=== PATIENT | female | born 1975 | race Caucasian/White ===

== ENCOUNTER 2017-05-20 12:29 | Emergency (ER) | payer OTHER ==
[~2017-05-20] VITALS: Ht 165.1 cm; Wt 82.2 kg
[~2017-05-20 12:29] MED LIST: CARV12.5 PO; HUM SUBQ; IBUP-974 PO; SITA100T8 PO; SULF1TAB12 PO
[2017-05-20 12:36] VITALS: BP 173/96
--- NOTE | 2017-05-20 12:50 | NUR ---
PATIENT IS A 41 YO FEMALE BIB SELF FOR RIGHT CALF PAIN SHE HAS HAD FFOR MONTHS, AWAKE AND ALERT ABLE TO AMBULATE.
[2017-05-20] MEDS ORDERED: KETOROLAC 60 MG/2 ML VIAL IM ONE (13:15)
--- NOTE | 2017-05-20 14:32 | NUR ---
Crutches dispensed. Taught proper use, patient returned demo.
[2017-05-20 14:50] VITALS: BP 161/80
== END 2017-05-20 14:50 | disposition home or self-care (01) ==
LOC: MED 12:29
DX: S86.911A Strain of unspecified muscle(s) and tendon(s) at lower leg level, right leg, initial encounter (principal); E11.9 Type 2 diabetes mellitus without complications; I10 Essential (primary) hypertension; Z90.710 Acquired absence of both cervix and uterus; Z88.8 Allergy status to other drugs, medicaments and biological substances; X58.XXXA Exposure to other specified factors, initial encounter; Y93.89 Activity, other specified; Y92.89 Other specified places as the place of occurrence of the external cause; Y99.8 Other external cause status
CPT/HCPCS: 73590; 93971; 96372; 99284; J1885

== ENCOUNTER 2018-06-16 20:59 | Inpatient (IN) | payer OTHER ==
[~2018-06-16] VITALS: Ht 165.1 cm; Wt 84.8 kg
[2018-06-16 21:08] VITALS: BP 178/90
[2018-06-16] MEDS ORDERED: GABA250S1 PO (21:13)
[2018-06-16] MEDS ORDERED: METF500T2 PO (21:13)
--- NOTE | 2018-06-16 21:13 | NUR ---
PT RETURNED TO LOBBY IN STABLE CONDITION
--- NOTE | 2018-06-16 23:41 | NUR ---
PT AMBULATED TO ER BED 05
[2018-06-16] MEDS ORDERED: IBUPROFEN 800 MG TAB PO ONE (23:50)
[2018-06-16] MEDS ORDERED: ACETAMINOPHEN EXTRA STRENGTH 500 MG TAB PO ONE (23:50)
--- NOTE | 2018-06-17 | NUR ---
PT BIB SELF REFERRED FROM URGENT CARE FOR ABCESS TO INSIDE OF RT BUTT CHEEK. REDNESS AND MILD SWELLING NOTED TO AFFECTED AREA. NO DRAINAGE OR BLEEDING. PT STATES SHE NOTICED S/S STARTING SATURDAY. PT LAYING IN BED, AWAKE ,ACTING APPROPRIATE.
--- NOTE | 2018-06-17 00:54 | NUR ---
Dr. North evaluating patient at bedside.
[2018-06-17] MEDS ORDERED: NACL 0.9% 2,000 ML IV SCH (00:56)
[2018-06-17] MEDS ORDERED: VANCOMYCIN 1,000 MG in DEXTROSE 5% 250 ML IV ONE (01:00)
[2018-06-17] MEDS ORDERED: PIPERACILLIN/TAZOBACTAM 3.375 GM in DEXT 5% MINI-BAG PLUS 50 ML IV ONE (01:00)
[2018-06-17 01:23] LABS: HEMATOCRIT 38.4 % (36-48); MEAN CORPUSCULAR HEMOGLOBIN 29 pg (27-31); MEAN CORPUSCULAR HGB CONC 34 g/dL (33-37); MEAN CORPUSCULAR VOLUME 87.1 fL (80-94); PLATELET COUNT (AUTO) 254 K/uL (140-450); RED CELL DISTRIBUTION WIDTH 12.2 % (11.6-13.7); WHITE BLOOD COUNT (AUTO) 13.8 K/uL (4.8-10.8)
[2018-06-17] MEDS ORDERED: VANCOMYCIN 1,000 MG VIAL ONE ×2 (01:27→02:35)
[2018-06-17] MEDS ORDERED: PIPERACILLIN/TAZOBACTAM 3.375 GM VIAL IV ONE (01:27)
--- NOTE | 2018-06-17 01:30 | NUR ---
PT LAYING IN BED, NO CHANGE IN STATUS, WILL CONTINUE TO MONITOR.
[2018-06-17 01:35] LABS: ANION GAP 17.2 (8-16); CARBON DIOXIDE 23.3 mmol/L (21-32); CREATININE 0.7 mg/dL (0.6-1.3); EOSINOPHILS % (MANUAL) 1 % (0-4); LYMPHOCYTES % (MANUAL) 7 % (20-46); MONOCYTES % (MANUAL) 1 % (5-12); POTASSIUM 3.5 mmol/L (3.5-5.1)
[2018-06-17 01:40] LABS: ALBUMIN 3.4 g/dL (3.4-5.0); TOTAL BILIRUBIN 0.7 mg/dL (0.0-1.0)
[2018-06-17 01:41] LABS: APPEARANCE,URINE SL CLOUDY (CLEAR); BILIRUBIN,URINE NEGATIVE (NEGATIVE); BLOOD, URINE NEGATIVE (NEGATIVE); COLOR,URINE YELLOW (YELLOW); LEUKOCYTE ESTERASE ,URINE TRACE (NEGATIVE); NITRITE, URINE NEGATIVE (NEGATIVE); UGLUCOSE 3+ (NEGATIVE)
[2018-06-17 01:50] LABS: RBC,URINE 0-5 (RARE) /HPF (0-5); YEAST,URINE Moderate /HPF (None Seen)
[2018-06-17] MEDS ORDERED: MORPHINE SULFATE 4 MG/ML SYR IVP ONE (02:45)
--- NOTE | 2018-06-17 03:00 | NUR ---
PT LAYING IN BED RESTING, WILL CONTINUE TO MONITOR.
--- NOTE | 2018-06-17 04:30 | NUR ---
PT LAYING IN BED RESTING, VSS, WILL CONTINUE TO MONITOR.
--- NOTE | 2018-06-17 05:15 | NUR ---
PT LAYING IN BED AWAKE, ON PHONE, WILL CONTINUE TO MONITOR.
[2018-06-17] MEDS ORDERED: ONDANSETRON 4 MG/2 ML VIAL IVP ONE (05:30)
[2018-06-17] MEDS ORDERED: DEXTROSE 50% 50 ML SYR IVP PRN (06:40)
[2018-06-17] MEDS ORDERED: VANCOMYCIN PER PHARMACY MC PRN (06:40)
[2018-06-17] MEDS ORDERED: ONDANSETRON 4 MG/2 ML VIAL IVP PRN ×2 (06:40→17:55)
[2018-06-17] MEDS ORDERED: ACETAMINOPHEN 325 MG TAB PO PRN (06:40)
--- NOTE | 2018-06-17 07:02 | NUR ---
Patient will be admitted to care of DR DAY. Admited toMED-SURG. Will go to [id number]. Belongings list completed. Report to KYLER DURHAM.
--- NOTE | 2018-06-17 07:02 | NUR ---
RECEIVED REPORT FROM BRIELLE DURHAM RN. ADMITTED PT FROM ER VIA JENNIFER. AAOX4. NO C/O SOB. ON ROOM AIR. SKIN INTACT. DX OF CELLULITIS TO THE RIGHT BUTTOCK. PT STATES PAIN IS 6/10. WILL MEDICATE. MRSA SWAB TAKEN. IV TO LEFT AC 20G, PATENT AND INTACT. ORIENTED PT TO ROOM. DISCUSSED PLAN OF CARE, PT VERBALIZED UNDERSTANDING. SAFETY PRECAUTION IN PLACE. CALL LIGHT WITHIN REACH. BED IN LOW POSITION. PERSONAL BELONGINGS AT BEDSIDE WITH PT. WILL CONTINUE TO ASSESS AND MONITOR.
[2018-06-17] MEDS: BLOOD GLUCOSE MONITORING 1 DEV DEV FS SCH ×4 (07:30→21:18)
[2018-06-17] MEDS: metFORMIN 500 MG TAB PO SCH ×3 (08:00→17:00)
[2018-06-17] MEDS: ENOXAPARIN 40 MG/0.4 ML SYR SUBQ SCH (08:41)
[2018-06-17] MEDS: CARVEDILOL 6.25 MG TAB PO SCH ×2 (08:42→21:26)
[2018-06-17] MEDS: GABAPENTIN 300 MG CAP PO SCH ×3 (08:42→17:00)
[2018-06-17] MEDS: HYDROcodone/APAP 5/325 MG 1 TAB TAB PO PRN ×3 (08:42→23:09)
--- NOTE | 2018-06-17 08:43 | NUR ---
PATIENT HAS BEEN SCREENED AND CATEGORIZED HIGH NUTRITION RISK. PATIENT WILL BE SEEN WITHIN 1-2 DAYS OF ADMISSION. 06/17/18-06/18/[address]
[2018-06-17] MEDS: INSULIN LISPRO SLIDING SCALE 100 UNITS/ML VIAL SUBQ PRN ×4 (09:13→21:30)
--- NOTE | 2018-06-17 09:25 | NUR ---
PT VERBALIZING THAT HER ABSCESS IS GETTING LARGER. DR. DAY AT NURSES STATION WAS NOTIFIED. STATED THAT HE WILL ASSESS.
[2018-06-17] MEDS ORDERED: VANCOMYCIN 1GM/DEXT 5% PREMIX 200 ML IV SCH (10:00)
--- NOTE | 2018-06-17 11:24 | NUR ---
PT HAS I&D OF ABSCESS PENDING. AWAITING ORDER FOR PT TO SIGN CONSENT.
--- NOTE | 2018-06-17 12:50 | NUR ---
PT SLEEPING IN BED. NO SIGNS OF PAIN, SOB, OR DISTRESS NOTED. WILL CONTINUE TO MONITOR PT. BED IN LOW POSITION, CALL LIGHT WITHIN REACH.
[2018-06-17] MEDS: PIPER/TAZO 3.375GM/D5W PREMIX 50 ML IV SCH ×2 (13:00→21:26)
--- NOTE | 2018-06-17 13:06 | NUR ---
06/17/18 RD INITIAL ASSESSMENT COMPLETED PLEASE REFER TO NUTRITION ASSESSMENT UNDER CARE ACTIVITY FOR ESTIMATED NUTRITIONAL NEEDS. 1. CONTINUE 60 GM CCHO DIET TOLERATED 2. RECOMMEND ADVANCING DIET TO 2GM SODIUM 60 GM CCHO 3. DIETITIAN PROVIDED NUTRITION EDUCATION ON HTN AND DM 4. RD TO FOLLOW-UP 3-5 DAYS, MODERATE RISK YULI HAYNES RD
--- NOTE | 2018-06-17 13:20 | NUR ---
PER DIETARY RECOMMENDATIONS, PT SHOULD FOLLOW A 2GM SODIUM + CCHO DIET.
--- NOTE | 2018-06-17 13:30 | NUR ---
CM NOTE PER CONNIE OF [facility] (PCP) PH# [phone], PATIENT IS SCHEDULED FOR OUTPATIENT FOLLOW UP APPOINTMENT ON JUNE 25, 2018 12:00 PM AT THE CLINIC AT [address] [place] [address]. I GAVE THE PATIENT A COPY OF HER OUTPATIENT FOLLOW UP SCHEDULE.
--- NOTE | 2018-06-17 13:50 | NUR ---
CM NOTE CHART REVIEW DONE
--- NOTE | 2018-06-17 16:59 | NUR ---
PT TAKEN TO OR FOR I&D OR KATHIE ABSCESS. PT LEFT IN STABLE CONDITION.
[2018-06-17] MEDS ORDERED: DEXAMETHASONE 10 MG/ML VIAL ONE (17:15)
[2018-06-17] MEDS ORDERED: KETOROLAC 30 MG/ML VIAL ONE (17:15)
[2018-06-17] MEDS ORDERED: ONDANSETRON 4 MG/2 ML VIAL ONE (17:15)
[2018-06-17] MEDS ORDERED: PROPOFOL 200 MG/20 ML VIAL IV ONE (17:15)
[2018-06-17] MEDS ORDERED: SEVOFLURANE 250 ML BTL INH ONE (17:15)
[2018-06-17] MEDS ORDERED: BUPIVACAINE-MPF/EPI 0.25% 30 ML VIAL INJ ONE (17:25)
[2018-06-17] MEDS ORDERED: MIDAZOLAM 2 MG/2 ML VIAL ONE (17:27)
[2018-06-17] MEDS ORDERED: fentaNYL 0.05 MG/ML VIAL ONE (17:28)
[2018-06-17] MEDS ORDERED: MEPERIDINE 50 MG/ML SYR ONE (17:28)
[2018-06-17] MEDS ORDERED: diphenhydrAMINE 50 MG/ML VIAL IVP PRN (17:55)
[2018-06-17] MEDS ORDERED: MEPERIDINE 25 MG/ML SYR IVP PRN (17:55)
[2018-06-17] MEDS ORDERED: HYDROmorphone 1 MG/ML AMP IVP PRN (17:55)
[2018-06-17] MEDS ORDERED: BLOOD GLUCOSE MONITORING 1 DEV DEV FS SCH (17:59)
--- NOTE | 2018-06-17 19:00 | NUR ---
PT RETURNED FROM OR. PT IN STABLE CONDITION. VERY SLEEPY FROM ANESTHESIA. I&D SIGHT CHECKED, 3 4X4 GAUZES PACKED INTO WOUND. NO DRESSING APPLIED OVER INCISION. KATHIE PAD MINIMALLY SATURATED WITH SANGUINOUS FLUID. ALL NEEDS MET AT THIS TIME. WILL ENDORSE TO SPACE TECHNOLOGIST TO MONITOR CLOSELY.
--- NOTE | 2018-06-17 19:04 | NUR ---
1700 NEURONTIN NOT ADMINISTERED TO PT. PT TOO SLEEPY TO TAKE MEDICATIONS. ASPIRATION RISK IF MEDS GIVEN.
--- NOTE | 2018-06-17 19:32 | NUR ---
ENDORSED PT TO TOOL AND CUTTER GRINDER FOR CONTINUITY OF CARE. PT IN STALE CONDITION.
--- NOTE | 2018-06-17 19:33 | NUR ---
RECEIVED BEDSIDE REPORT. PT IS A&OX4. RESPIRATIONS ARE EQUAL AND UNLABORED. S/P I&D. PT RECENTLY RETURNED FROM SURGERY AND IS STILL DROWSY. PER NURSE DR. STEELE PACKED INCISION WITH 3 4X4. DRESSING DRY AND INTACT DENIES PAIN. IV TO LAC 20 G DRY AND INTACT INFUSING IVF PER ORDERS. LUNG SOUNDS ARE CLEAR. PT HAD CT SCAN WITH CONTRAST TODAY AND METFORMIN TO BE HELD FOR 48HRS. PLAN OF CARE WAS DISCUSSED WITH PT. WILL CONTINUE TO MONITOR.
[2018-06-17] MEDS: NACL 0.9% 1,000 ML IV SCH (21:25)
--- NOTE | 2018-06-17 21:36 | NUR ---
DUE MEDICATIONS WERE GIVEN. PT TOLERATED WELL. ORDERED SANDWICH FOR PT. ALL NEEDS MET AT THIS TIME. WILL CONTINUE TO MONITOR.
[2018-06-17 23:38] VITALS: BP 147/68
--- NOTE | 2018-06-18 | NUR ---
PTS VITAL SIGNS ARE WITHIN NORMAL LIMITS. DENIES ANY SOB OR PAIN AT THIS TIME. ALL NEEDS MET. CALL LIGHT WITHIN REACH.
--- NOTE | 2018-06-18 02:00 | NUR ---
PT SLEEPING RESPIRATIONS ARE EQUAL AND UNLABORED. CALL LIGHT WITHIN REACH.
[2018-06-18] MEDS: NACL 0.9% 1,000 ML IV SCH ×2 (02:13→10:33)
--- NOTE | 2018-06-18 03:25 | NUR ---
PT SLEEPING COMFORTABLY IN BED. RESPIRATIONS ARE EQUAL AND UNLABORED. ALL SAFETY MEASURES ARE IN PLACE.CALL LIGHT WITHIN REACH
[2018-06-18] MEDS: PIPER/TAZO 3.375GM/D5W PREMIX 50 ML IV SCH ×2 (05:13→13:18)
[2018-06-18] MEDS: HYDROcodone/APAP 5/325 MG 1 TAB TAB PO PRN ×3 (05:20→18:38)
--- NOTE | 2018-06-18 05:20 | NUR ---
PAIN 6/10 NORCO WAS GIVEN. ALL NEEDS MET AT THIS TIME. WILL CONTINUE TO MONITOR.
[2018-06-18] MEDS: INSULIN LISPRO SLIDING SCALE 100 UNITS/ML VIAL SUBQ PRN ×3 (05:22→18:40)
[2018-06-18] MEDS: BLOOD GLUCOSE MONITORING 1 DEV DEV FS SCH ×3 (05:23→16:30)
[2018-06-18 05:55] LABS: BASOPHILS % (AUTO) 0.1 % (0.0-2.0); HEMOGLOBIN 11.9 g/dL (12.0-16.0); LYMPHOCYTES # (AUTO) 0.5 K/uL (2.5-16.5); LYMPHOCYTES % (AUTO) 5.6 % (20.5-51.1); MEAN CORPUSCULAR HEMOGLOBIN 30 pg (27-31); MEAN CORPUSCULAR HGB CONC 33 g/dL (33-37); MONOCYTES # (AUTO) 0.4 K/uL (0.8-1.0); MONOCYTES % (AUTO) 4.9 % (1.7-9.3); NEUTROPHILS # (AUTO) 8.2 K/uL (1.8-7.7); NEUTROPHILS % (AUTO) 89.4 % (42.2-75.2); PLATELET COUNT (AUTO) 213 K/uL (140-450); RED CELL DISTRIBUTION WIDTH 12.6 % (11.6-13.7); WHITE BLOOD COUNT (AUTO) 9.1 K/uL (4.8-10.8)
--- NOTE | 2018-06-18 07:21 | NUR ---
RECEIVED BEDSIDE REPORT. PT IS A&OX4. RESPIRATIONS ARE EQUAL AND UNLABORED. S/P I&D. DR. STEELE PACKED INCISION WITH 3 4X4 GAUZE PADS. DRESSING DRY AND INTACT DENIES PAIN. IV TO LAC 20 G DRY AND INTACT INFUSING IVF PER ORDERS. LUNG SOUNDS ARE CLEAR. PT HAD CT SCAN WITH CONTRAST TODAY AND METFORMIN TO BE HELD FOR 48HRS. PLAN OF CARE WAS DISCUSSED WITH PT. WILL CONTINUE TO MONITOR. Addendum: 06/18/18 at 0733 by Ashli Carl RN RECEIVED BEDSIDE REPORT. PT IS A&OX4. RESPIRATIONS ARE EQUAL AND UNLABORED. S/P I&D. DR. STEELE PACKED INCISION WITH 3 4X4 GAUZE PADS. DRESSING DRY AND INTACT DENIES PAIN. IV TO LAC 20 G DRY AND INTACT INFUSING IVF PER ORDERS. LUNG SOUNDS ARE CLEAR. PT HAD CT SCAN WITH CONTRAST YESTERDAY (06/17) AND METFORMIN TO BE HELD FOR 48HRS. PLAN OF CARE WAS DISCUSSED WITH PT. WILL CONTINUE TO MONITOR.
--- NOTE | 2018-06-18 07:22 | NUR ---
ENDORSED TO DAY SHIFT. PT IS STABLE.
[2018-06-18] MEDS ORDERED: CARVEDILOL 12.5 MG TAB PO SCH (07:36)
[2018-06-18 08:00] VITALS: BP 175/91
[2018-06-18] MEDS: metFORMIN 500 MG TAB PO SCH ×3 (08:00→17:00)
[2018-06-18 08:42] LABS: ANION GAP 16.3 (8-16); CREATININE 0.8 mg/dL (0.6-1.3); POTASSIUM 4.3 mmol/L (3.5-5.1)
[2018-06-18 08:43] LABS: ALBUMIN 2.7 g/dL (3.4-5.0); TOTAL BILIRUBIN 0.7 mg/dL (0.0-1.0)
--- NOTE | 2018-06-18 09:23 | NUR ---
ANKIT NOTE FAXED ORDER FOR HOME HEALTH TO [facility] [phone]. RECEIVED CALL FROM [facility] PH# [phone] EXT [phone] STATING THAT SHE IS AUTHORIZING HOME HEALTH WITH [facility] PH# [phone]. SHAWN KIDD. Addendum: 06/18/18 at 0946 by Dasha Lugo CM PER [facility], FOR [facility] AUTH# [id number]
--- NOTE | 2018-06-18 09:51 | NUR ---
PT SLEEPING IN BED. NO SIGNS OF PAIN, SOB, OR DISTRESS NOTED. WILL CONTINUE TO MONITOR PT. BED IN LOW POSITION, CALL LIGHT WITHIN REACH.
[2018-06-18] MEDS: GABAPENTIN 300 MG CAP PO SCH ×3 (10:25→17:00)
[2018-06-18] MEDS: ENOXAPARIN 40 MG/0.4 ML SYR SUBQ SCH (10:27)
--- NOTE | 2018-06-18 11:42 | NUR ---
PT SITTING IN BED WITH AT BEDSIDE.PT IN GOOD SPIRITS. NO COMPLAINTS OF PAIN AT THIS TIME. ALL NEEDS MET. WILL CONTINUE TO ASSESS PT CLOSELY. CALL LIGHT WITHIN REACH, BED IN LOW POSITION.
--- NOTE | 2018-06-18 12:30 | NUR ---
Trestle Mainternance Laborer Note: I faxed inquiry to [facility], fax number , phone number . Per Angela from [facility], they don't have nursing staff available to do daily dressing changes. She stated their nurses can go to patient's home between 3-4 times per week, charge nurse Reji made aware and will notify [facility] nursing staff can't visit patient daily at home.
--- NOTE | 2018-06-18 14:51 | NUR ---
PT IN THE RESTROOM. KNOCKED ON DOOR TO ASK PT IF SHE WAS OK AND SHE VERBALIZED THAT SHE WAS FINE. NO COMPLAINTS OF PAIN. BED IN LOW POSITION, PATHWAY TO RESTROOM CLEAR. WILL CONTINUE TO MONITOR PT.
[2018-06-18] MEDS ORDERED: AMOX-1000 PO (15:20)
[2018-06-18 16:00] VITALS: BP 175/76
--- NOTE | 2018-06-18 18:42 | NUR ---
PT WOUND CARE DONE. REMOVED 3 4X4 GAUZES PER 'S INSTRUCTIONS POST I&D. PT WAS PREMEDICATED 30MINS PRIOR TO DRESSING CHANGE. PT VERBALIZED DISCOMFORT DURING REMOVAL OF OLD GAUZE AND PACKING OF NEW GAUZE. ONLY PACKED ONE WET TO DRY GAUZE INTO WOUND. PT WAS INSTRUCTED OF IMPORTANCE OF KEEPING WOUND AREA CLEAN. INSTRUCTED PT TO RINSE LIGHTLY WITH SALINE WATER AND USE CLEAN STERILE GAUZE PROVIDED FOR HER. PT VERBALIZED UNDERSTANDING. PICTURE TAKEN AND PLACED IN CHART.
--- NOTE | 2018-06-18 19:47 | NUR ---
PT DISCHARGED HOME. MOM AT BEDSIDE AND DROVE HER HOME. PT TO HAVE HOME HEALTH VISITS FOR WOUND DRESSING CHANGES 3-4X PER WEEK PER CM. PT GIVEN DISCHARGE TEACHING AND PAPERWORK. INSTRUCTED PT ON DRESSING CHANGES AND THAT 1 GAUZE WAS PACKED INTO WOUND WHEN I DID DRESSING CHANGE. PT SIGNED PAPERWORK AND VERBALIZED UNDERSTANDING OF TEACHING. PRESCRIPTIONS GIVEN TO PT AND 'S CONTACT INFORMATION WELL. PT IV REMOVED WITH TIP INTACT. WRIST BAND ALSO REMOVED. PT TOOK ALL BELONGINGS WITH HER. PT LEFT IN STABLE CONDITION.
== END 2018-06-18 19:47 | disposition home health service (06) | DRG 720 ==
LOC: MED 20:59 → MTU 06-17 06:45
PROVIDERS: ADMIT Internal Medicine; ATTEND Internal Medicine
PROC: 0D9Q0ZX Drainage of Anus, Open Approach, Diagnostic (ICD-10-PCS; principal; 2018-06-18)
DX: A41.9 Sepsis, unspecified organism (principal); K61.2 Anorectal abscess; E11.9 Type 2 diabetes mellitus without complications; L03.317 Cellulitis of buttock; E66.9 Obesity, unspecified; I10 Essential (primary) hypertension; Z68.31 Body mass index [BMI] 31.0-31.9, adult; Z88.2 Allergy status to sulfonamides; Z88.8 Allergy status to other drugs, medicaments and biological substances; Z79.4 Long term (current) use of insulin; Z79.84 Long term (current) use of oral hypoglycemic drugs; Z90.710 Acquired absence of both cervix and uterus; Z98.891 History of uterine scar from previous surgery
CPT/HCPCS: 36415; 72193; 80053; 81001; 82948; 83605; 83690; 85025; 87040; 87070; 87075; 87081; 87086; 87186; 87205; 96365; 96366; 96367; 96375; 99291; J0696; J1100; J1650; J1815; J1885; J2175; J2250; J2270; J2405; J2543; J2704; J3010; J3370; J3490; J7030; J7060; Q9967

== ENCOUNTER 2018-07-26 21:54 | Emergency (ER) | payer OTHER ==
[~2018-07-26] VITALS: Ht 165.1 cm; Wt 84.8 kg
[~2018-07-26 21:54] MED LIST changes: +AMOX-1000 PO; +GABA250S1 PO; -IBUP-974 PO; +METF500T2 PO; -SITA100T8 PO; -SULF1TAB12 PO
[2018-07-26 21:58] VITALS: BP 163/90
--- NOTE | 2018-07-26 21:58 | NUR ---
TO LOBBY AWAITING BED, VSS.
--- NOTE | 2018-07-27 00:15 | NUR ---
TO ER BED 10
--- NOTE | 2018-07-27 00:18 | NUR ---
PT BIB SELF FOR L FOOT PAIN X3 DAYS. PT REPORTS SHARP PAIN AT 7/10 THAT RADIATES UP L LEG. NO VISIBLE EDEMA OR ERYTHEMA ON BOTTOM OF FOOT WHERE PT STATES PAIN COMES FROM. PT R GREAT TOE HAS SOME ERYTHEMA PRESENT AND IS TENDER TO TOUCH. PT HAS TREATED WITH LIDOCAINE PATCHES AND ALIEVE WITH NO RELIEF. ER MD TO SEE PT. SAFETY PRECAUTINS IN PLACE, WILL CONTINUE TO MONITOR. MEDHX: DM II, HTN RX: GABAPENTIN, METFORMIN, HUMALOG, CARVIDILOL
--- NOTE | 2018-07-27 00:37 | NUR ---
GUERO NIELSEN AT BEDSIDE AT THIS TIME.
[2018-07-27 01:00] VITALS: BP 159/88
== END 2018-07-27 01:00 | disposition home or self-care (01) ==
LOC: MED 21:54
DX: M72.2 Plantar fascial fibromatosis (principal); E11.9 Type 2 diabetes mellitus without complications; I10 Essential (primary) hypertension; J45.909 Unspecified asthma, uncomplicated; Z85.42 Personal history of malignant neoplasm of other parts of uterus; Z79.4 Long term (current) use of insulin; Z79.899 Other long term (current) drug therapy; Z88.1 Allergy status to other antibiotic agents; Z88.2 Allergy status to sulfonamides; Z88.8 Allergy status to other drugs, medicaments and biological substances
CPT/HCPCS: 73630; 99283

== ENCOUNTER 2019-02-03 05:59 | Emergency (ER) | payer OTHER ==
[~2019-02-03] VITALS: Ht 165.1 cm; Wt 74.6 kg
[2019-02-03 06:06] VITALS: BP 160/91
--- NOTE | 2019-02-03 06:08 | NUR ---
PT AMBULATED TO BED 8
--- NOTE | 2019-02-03 06:23 | NUR ---
43 Y/O FEMALE PRESENTS TO ED, C/O L ANKLE ACHING PAIN THAT RADIATES TO L HIP, 02/17. PT DENIES ANY TRAUMA OR FALL. PT STATES SHE HAS BEEN HAVING PAIN ON L ANKLE BUT WORSENED AND RADIATED TO L HIP YESTERDAY. PT TOOK MOTRIN TO RELIEVE PAIN BUT WAS INEFFECTIVE. PT HAS HX OF DM AND NEUROPHATHY, TAKES GABAPENTIN AT HOME. PT HAS FULL ROM ON LOWER EXTREMITIES, BILAT STRONG PEDAL PULSES. PT ABLE TO AMBULATE WITH SLOW STEADY GAIT BUT WITH PAIN. PT VSS. ERMD AWARE. WILL CONTINUE TO MONITOR.
[2019-02-03] MEDS ORDERED: KETOROLAC 60 MG/2 ML VIAL IM ONE (07:15)
--- NOTE | 2019-02-03 07:32 | NUR ---
JOHNATHAN LR PROVIDING TEACHING ON USING CRUTCHES AT THIS TIME.
[2019-02-03 07:38] VITALS: BP 152/93
--- NOTE | 2019-02-03 07:38 | NUR ---
Patient discharged with v/s stable. Written and verbal after care instructions given and explained. Patient alert, oriented and verbalized understanding of instructions. Wheel Chair Assisted with to LOBBY WHERE PT IS WAITING FOR A RIDE. All questions addressed prior to discharge. ID band removed. Patient advised to follow up with PMD. Rx of NOROC given. Patient educated on indication of medication including possible reaction and side effects. Opportunity to ask questions provided and answered.
== END 2019-02-03 07:38 | disposition home or self-care (01) ==
LOC: MED 05:59
DX: M54.42 Lumbago with sciatica, left side (principal); M72.2 Plantar fascial fibromatosis; J45.909 Unspecified asthma, uncomplicated; F15.10 Other stimulant abuse, uncomplicated; Z90.710 Acquired absence of both cervix and uterus; Z79.4 Long term (current) use of insulin; Z79.2 Long term (current) use of antibiotics; Z88.8 Allergy status to other drugs, medicaments and biological substances; Z88.1 Allergy status to other antibiotic agents; Z85.42 Personal history of malignant neoplasm of other parts of uterus
CPT/HCPCS: 96372; 99283; J1885

== ENCOUNTER 2019-03-04 18:31 | Emergency (ER) | payer OTHER ==
[~2019-03-04] VITALS: Ht 165.1 cm; Wt 81.9 kg
--- NOTE | 2019-03-04 19:06 | NUR ---
PT ambulated to bed 06.
--- NOTE | 2019-03-04 19:14 | NUR ---
43 Y/O FEMALE C/O NAUSEA, LEFT ANKLE & LEFT FOOT PAIN &SWELLING X 2 WEEKS. ACCU CHECK 364 AT THIS TIME. BP 195/95. PATIENT IS A/OX4 AND FOLLOWS COMMANDS. LEFT ANKLE NONPITTING EDEMA. PATIENTS STATES THAT SHE TWISTED LEFT ANKLE 2 MONTHS AGO; PAIN STARTED APPROXIMATELY 2 WEEKS AGO. PAIN IS 9/10 SHARP; STABBING PAIN RADIATING TO LEFT HIP. ERMD MADE AWARE. SIDERAILSX1. MED HX: DM, HTN, HYSTERECTOMY RX: HUMALOG; METFORMIN; LEVAMIR; COREG ALLERGIES: HCTZ; SULAMETHOXAZOLE; SEE PT. RX LIST
--- NOTE | 2019-03-04 19:27 | NUR ---
Dr. Vieyra examining patient.
[2019-03-04] MEDS ORDERED: KETOROLAC 60 MG/2 ML VIAL IM ONE (19:35)
--- NOTE | 2019-03-04 19:46 | NUR ---
Kelsea presley in [facility] - 03/04/19 at 1958 by BRIDGETT X-Ray at bedside.
--- NOTE | 2019-03-04 19:48 | NUR ---
X-RAY AT BEDSIDE.
[2019-03-04 20:33] LABS: BASOPHILS % (AUTO) 0.3 % (0.0-2.0); EOSINOPHILS # (AUTO) 0.1 K/uL (0-0.4); EOSINOPHILS % (AUTO) 1.4 % (0.0-4.0); HEMOGLOBIN 13.2 g/dL (12.0-16.0); LYMPHOCYTES # (AUTO) 1.5 K/uL (2.5-16.5); LYMPHOCYTES % (AUTO) 18.2 % (20.5-51.1); MEAN CORPUSCULAR HEMOGLOBIN 30 pg (27-31); MEAN CORPUSCULAR HGB CONC 34 g/dL (33-37); MEAN CORPUSCULAR VOLUME 89.9 fL (80-94); MONOCYTES # (AUTO) 0.5 K/uL (0.8-1.0); MONOCYTES % (AUTO) 5.7 % (1.7-9.3); NEUTROPHILS # (AUTO) 6.1 K/uL (1.8-7.7); NEUTROPHILS % (AUTO) 74.4 % (42.2-75.2); PLATELET COUNT (AUTO) 241 K/uL (140-450); RED BLOOD CELL COUNT(AUTO) 4.34 MIL/uL (4.20-5.40); RED CELL DISTRIBUTION WIDTH 12.4 % (11.6-13.7); WHITE BLOOD COUNT (AUTO) 8.2 K/uL (4.8-10.8)
[2019-03-04 20:44] LABS: ANION GAP 11.9 (8-16); CARBON DIOXIDE 28.8 mmol/L (21-32); CREATININE 0.8 mg/dL (0.6-1.3); POTASSIUM 3.7 mmol/L (3.5-5.1)
--- NOTE | 2019-03-04 20:50 | NUR ---
ELEVATED LEFT FOOT AND APPLIED ICE PACK.
[2019-03-04 20:59] LABS: ALBUMIN 3.4 g/dL (3.4-5.0); TOTAL BILIRUBIN 0.3 mg/dL (0.0-1.0)
[2019-03-04 22:05] VITALS: BP 168/92
--- NOTE | 2019-03-04 22:05 | NUR ---
Patient discharged with v/s stable. Written and verbal after care instructions given and explained. Patient alert, oriented and verbalized understanding of instructions. Ambulatory with steady gait. All questions addressed prior to discharge. ID band removed. Patient advised to follow up with PMD. Rx of MOTRIN 800MG AND NORCO 5MG-325MG given. Patient educated on indication of medication including possible reaction and side effects. Opportunity to ask questions provided and answered.
== END 2019-03-04 22:05 | disposition home or self-care (01) ==
LOC: MED 18:31
DX: R60.0 Localized edema (principal); J45.909 Unspecified asthma, uncomplicated; E11.9 Type 2 diabetes mellitus without complications; I10 Essential (primary) hypertension; Z85.42 Personal history of malignant neoplasm of other parts of uterus; Z79.4 Long term (current) use of insulin; Z79.899 Other long term (current) drug therapy; Z88.1 Allergy status to other antibiotic agents; Z88.2 Allergy status to sulfonamides; Z88.8 Allergy status to other drugs, medicaments and biological substances
CPT/HCPCS: 36415; 71045; 80053; 81002; 81025; 83880; 84484; 85025; 96372; 99284; J1885

== ENCOUNTER 2019-03-11 03:05 | Emergency (ER) | payer OTHER ==
[~2019-03-11] VITALS: Ht 165.1 cm; Wt 79.8 kg
[2019-03-11 03:07] VITALS: BP 199/78
[2019-03-11] MEDS: MORPHINE SULFATE 4 MG/ML SYR IVP ONE (03:37)
[2019-03-11] MEDS: LORazepam 2 MG/ML VIAL IVP ONE (04:04)
[2019-03-11 04:30] VITALS: BP 175/74
== END 2019-03-11 04:30 | disposition home or self-care (01) ==
LOC: MED 03:05
DX: R07.89 Other chest pain (principal); J45.909 Unspecified asthma, uncomplicated; E11.9 Type 2 diabetes mellitus without complications; I10 Essential (primary) hypertension; Z90.710 Acquired absence of both cervix and uterus; Z85.42 Personal history of malignant neoplasm of other parts of uterus; Z79.4 Long term (current) use of insulin; Z79.899 Other long term (current) drug therapy; Z88.1 Allergy status to other antibiotic agents; Z88.2 Allergy status to sulfonamides; Z88.8 Allergy status to other drugs, medicaments and biological substances
CPT/HCPCS: 81002; 81025; 93005; 96374; 96375; 99283; J2060; J2270

== ENCOUNTER 2019-03-13 16:55 | Emergency (ER) | payer OTHER ==
[~2019-03-13] VITALS: Ht 165.1 cm; Wt 79.8 kg
[2019-03-13 17:01] VITALS: BP 205/85
[2019-03-13 17:34] VITALS: BP 150/85
== END 2019-03-13 17:33 | disposition home or self-care (01) ==
LOC: MED 16:55
DX: R07.89 Other chest pain (principal); R00.2 Palpitations; R06.02 Shortness of breath; J45.909 Unspecified asthma, uncomplicated; E11.9 Type 2 diabetes mellitus without complications; I10 Essential (primary) hypertension; Z85.42 Personal history of malignant neoplasm of other parts of uterus; Z90.710 Acquired absence of both cervix and uterus; Z79.4 Long term (current) use of insulin; Z79.899 Other long term (current) drug therapy; Z88.1 Allergy status to other antibiotic agents; Z88.2 Allergy status to sulfonamides; Z88.8 Allergy status to other drugs, medicaments and biological substances
CPT/HCPCS: 93005; 99283

== ENCOUNTER 2020-02-05 15:12 | Emergency (ER) | payer OTHER, SELFPAY ==
[~2020-02-05] VITALS: Ht 162.6 cm; Wt 82.1 kg
[~2020-02-05 15:12] MED LIST changes: +AMLO10TA4 PO; -AMOX-1000 PO; +ASPI-1884 PO; +CANN100S INH; -GABA250S1 PO; +LANTUS SC
[2020-02-05 15:16] VITALS: BP 178/94
--- NOTE | 2020-02-05 15:26 | NUR ---
44 Y/O F C/C HYPERGLYCEMIA X 2 DAYS. PT REFERRED BY PCP ON THE DURING OFFICE VISIT. PT PRESENTS WITH POLYDIPSIA, AND FACIAL DISCOMFORT. PER PT FACIAL DISCOMFORT IS A COMMON SIGN WHEN HYPERGLYCEMIC. PT ALLERGIES SULFA. HX DM,HTN,ASTHMA,HDL. RX METFORMIN,INSULIN,CARVEDILOL,ALBUTEROL,ASA. DENIES NVD. SIDE RAIL X1.
--- NOTE | 2020-02-05 15:29 | NUR ---
ERMD AT BEDSIDE
[2020-02-05] MEDS ORDERED: INSULIN REGULAR, HUMAN 100 UNIT/ML VIAL SUBQ ONE (15:40)
[2020-02-05] MEDS ORDERED: FUROSEMIDE 40 MG/4 ML VIAL IVP ONE (15:40)
[2020-02-05 16:15] LABS: BASOPHILS % (AUTO) 0.5 % (0.0-2.0); EOSINOPHILS # (AUTO) 0.1 K/uL (0-0.4); EOSINOPHILS % (AUTO) 0.9 % (0.0-4.0); LYMPHOCYTES % (AUTO) 13.6 % (20.5-51.1); MEAN CORPUSCULAR HEMOGLOBIN 30 pg (27-31); MEAN CORPUSCULAR HGB CONC 32 g/dL (33-37); MEAN CORPUSCULAR VOLUME 91.1 fL (80-94); MONOCYTES # (AUTO) 0.6 K/uL (0.8-1.0); MONOCYTES % (AUTO) 8.5 % (1.7-9.3); NEUTROPHILS # (AUTO) 5.8 K/uL (1.8-7.7); NEUTROPHILS % (AUTO) 76.5 % (42.2-75.2); PLATELET COUNT (AUTO) 327 K/uL (140-450); RED BLOOD CELL COUNT(AUTO) 4.06 MIL/uL (4.20-5.40); RED CELL DISTRIBUTION WIDTH 12.7 % (11.6-13.7); WHITE BLOOD COUNT (AUTO) 7.6 K/uL (4.8-10.8)
[2020-02-05 16:33] LABS: CARBON DIOXIDE 26.4 mmol/L (21-32); CREATININE 0.8 mg/dL (0.6-1.3); POTASSIUM 4.4 mmol/L (3.5-5.1)
[2020-02-05 17:49] VITALS: BP 165/85
--- NOTE | 2020-02-05 17:49 | NUR ---
Patient discharged with v/s stable. Written and verbal after care instructions given and explained. Patient verbalized understanding. Ambulatory with steady gait. All questions addressed prior to discharge. Advised to follow up with PMD.
== END 2020-02-05 17:49 | disposition home or self-care (01) ==
LOC: MED 15:12
DX: E11.65 Type 2 diabetes mellitus with hyperglycemia (principal); I10 Essential (primary) hypertension; J45.909 Unspecified asthma, uncomplicated; Z79.899 Other long term (current) drug therapy; Z79.84 Long term (current) use of oral hypoglycemic drugs; Z79.82 Long term (current) use of aspirin; Z88.8 Allergy status to other drugs, medicaments and biological substances
CPT/HCPCS: 36415; 80048; 81002; 81025; 83880; 84484; 85025; 93005; 96372; 96374; 99285; J1815; J1940; 99284

== ENCOUNTER 2020-02-11 22:50 | Emergency (ER) | payer OTHER, SELFPAY ==
[~2020-02-11] VITALS: Ht 165.1 cm; Wt 79.4 kg
[2020-02-11 23:05] VITALS: BP 176/85
--- NOTE | 2020-02-11 23:21 | NUR ---
44 Y/O F BIBA C/O FLU LIKE SYMPTOMS X 4 DAYS. PT STATES THAT SHE HAS BEEN HAVING CHILLS, NIGHT SWEAT,S BODYACHES, HURTADO, COUGH WITH CLEAR PLEGHM, SUBJECTIVE FEVER AND NAUSEA. PT DENIES ANY SOB OR DIARRHEA AND DENIES ANY CONTACT WITH ANY COVID POSITIBE PATIENTS. PT STATES THAT SHE HAD A FEVER EARLIER THIS MORNING AND TOOK IBUPROFEN, NO FEVER DURING TRIAGE. 4MG ZOFRAN WAS GIVEN EN ROUTE TO RELIEVE NAUSEA. AIRWAY INTACT, RR AND UNLABORED. PT HYPERTENSIVE AT 171/91, PT STATES THAT SHE HASN'T TAKEN HER HTN MEDICATION FOR TONIGHT. PT ATTACHED TO LIGHTING DESIGNER AND PULSE OXIMETRY. BED LOCKED AND IN LOWEST POSITION. SIDE RAIL UP X1. WILL CONTINUE TO MONITOR. MHX: DM/HTN/ASTHMA/ELEVATED CARDIAC ENZYMES/ANXIETY/HYSTERECTOMY 2011 ALLERGY: SULFA/HYDROCHLOROTHIAZIDE
[2020-02-11] MEDS ORDERED: KETOROLAC 60 MG/2 ML VIAL IM ONE (23:40)
[2020-02-11] MEDS ORDERED: ONDANSETRON 4 MG ODT PO ONE (23:40)
--- NOTE | 2020-02-12 | NUR ---
COVID SWAB AND FLU COLLECTED AND WALKED OVER TO LAB.
--- NOTE | 2020-02-12 00:44 | NUR ---
RAD AT BEDSIDE.
[2020-02-12] MEDS ORDERED: AMOXIL/CLAVULANATE 875/125 MG 1 TAB PO ONE (01:30)
[2020-02-12 01:45] VITALS: BP 154/94
--- NOTE | 2020-02-12 01:47 | NUR ---
Patient discharged with v/s stable. Written and verbal after care instructions given and explained. Patient alert, oriented and verbalized understanding of instructions. Ambulatory with steady gait. All questions addressed prior to discharge. ID band removed. Patient advised to follow up with PMD. Rx of TESSALON, AUGMENTIN, ZOFRAN, AZITHROMYCIN, given. Patient educated on indication of medication including possible reaction and side effects. Opportunity to ask questions provided and answered.
== END 2020-02-12 01:40 | disposition home or self-care (01) ==
LOC: MED 22:50
DX: J18.9 Pneumonia, unspecified organism (principal); B34.9 Viral infection, unspecified; E11.9 Type 2 diabetes mellitus without complications; I10 Essential (primary) hypertension; J45.909 Unspecified asthma, uncomplicated; Z20.828 Contact with and (suspected) exposure to other viral communicable diseases; Z88.1 Allergy status to other antibiotic agents; Z90.711 Acquired absence of uterus with remaining cervical stump; Z85.42 Personal history of malignant neoplasm of other parts of uterus; Z88.2 Allergy status to sulfonamides; Z88.8 Allergy status to other drugs, medicaments and biological substances; Z79.899 Other long term (current) drug therapy
CPT/HCPCS: 71045; 87804; 96372; 99284; J1885; Q0092; Q0162; U0003; 99283

== ENCOUNTER 2020-02-14 23:10 | Emergency (ER) | payer OTHER, SELFPAY ==
[~2020-02-14] VITALS: Ht 165.1 cm; Wt 77.1 kg
--- NOTE | 2020-02-14 23:11 | NUR ---
PT YVES ALS. TAKEN TO BED 11
[2020-02-14] MEDS ORDERED: KETOROLAC 30 MG/ML VIAL IVP ONE (23:25)
[2020-02-14 23:26] VITALS: BP 171/42
--- NOTE | 2020-02-14 23:29 | NUR ---
44 year old female biba for c/o pleuritic chest pain x 2 hours that is nonradiating. states started while eating dinner and progressively got worse. states hurts more when breathing deeply. denies headache/blurry vision. reports SOB but denies cough. rr even and unlabored. EKG results NSR. pt took ASA 325 mg at home and was 0.4 nitro. denies any other s/sx. awaiting MSE. pmhx: htn, hld, dm allx: hctz, sulfa
[2020-02-14 23:54] LABS: BASOPHILS % (AUTO) 0.6 % (0.0-2.0); EOSINOPHILS # (AUTO) 0.1 K/uL (0-0.4); HEMATOCRIT 34.9 % (36-48); HEMOGLOBIN 11.6 g/dL (12.0-16.0); LYMPHOCYTES # (AUTO) 1.1 K/uL (2.5-16.5); LYMPHOCYTES % (AUTO) 16.6 % (20.5-51.1); MEAN CORPUSCULAR HEMOGLOBIN 29 pg (27-31); MEAN CORPUSCULAR HGB CONC 33 g/dL (33-37); MEAN CORPUSCULAR VOLUME 86.9 fL (80-94); MONOCYTES # (AUTO) 0.7 K/uL (0.8-1.0); MONOCYTES % (AUTO) 10.2 % (1.7-9.3); NEUTROPHILS # (AUTO) 4.9 K/uL (1.8-7.7); NEUTROPHILS % (AUTO) 71.6 % (42.2-75.2); PLATELET COUNT (AUTO) 400 K/uL (140-450); RED BLOOD CELL COUNT(AUTO) 4.02 MIL/uL (4.20-5.40); WHITE BLOOD COUNT (AUTO) 6.9 K/uL (4.8-10.8)
--- NOTE | 2020-02-15 | NUR ---
xray at bedside
[2020-02-15 00:09] LABS: ALBUMIN 2.7 g/dL (3.4-5.0); ANION GAP 11.9 (8-16); CARBON DIOXIDE 28.5 mmol/L (21-32); CREATININE 0.8 mg/dL (0.6-1.3); POTASSIUM 3.4 mmol/L (3.5-5.1); TOTAL BILIRUBIN 0.5 mg/dL (0.0-1.0)
[2020-02-15] MEDS ORDERED: NACL 0.9% 1,000 ML IV ONE (00:15)
--- NOTE | 2020-02-15 00:40 | NUR ---
pt ambulated to restroom with steady gait.
[2020-02-15 00:50] VITALS: BP 177/87
--- NOTE | 2020-02-15 00:52 | NUR ---
Kelsea presley in [facility] - 02/15/20 at 0052 [address] [facility] Dr. Vieyra at bedside.
--- NOTE | 2020-02-15 00:52 | NUR ---
Dr. Vieyra examining patient.
--- NOTE | 2020-02-15 01:58 | NUR ---
Patient discharged with v/s stable. Written and verbal after care instructions given and explained. Patient alert, oriented and verbalized understanding of instructions. Ambulatory with steady gait. All questions addressed prior to discharge. ID band removed. Patient advised to follow up with PMD. Rx of zofran, motrin, norco given. Patient educated on indication of medication including possible reaction and side effects. Opportunity to ask questions provided and answered.
== END 2020-02-15 01:58 | disposition home or self-care (01) ==
LOC: MED 23:10
DX: R07.9 Chest pain, unspecified (principal); J45.909 Unspecified asthma, uncomplicated; E11.9 Type 2 diabetes mellitus without complications; I10 Essential (primary) hypertension; Z88.8 Allergy status to other drugs, medicaments and biological substances; Z88.2 Allergy status to sulfonamides; Z79.899 Other long term (current) drug therapy; Z79.82 Long term (current) use of aspirin; Z79.84 Long term (current) use of oral hypoglycemic drugs; Z85.42 Personal history of malignant neoplasm of other parts of uterus
CPT/HCPCS: 36415; 71045; 80053; 81002; 81025; 82948; 84484; 85025; 93005; 96361; 96374; 99285; J1885; J7030; Q0092; 99284

== ENCOUNTER 2020-05-08 16:11 | Emergency (ER) | payer OTHER ==
[~2020-05-08] VITALS: Ht 165.1 cm; Wt 74.8 kg
[~2020-05-08 16:11] MED LIST changes: -AMLO10TA4 PO; +AMLO10TA89 PO
[2020-05-08 16:17] VITALS: BP 161/75
--- NOTE | 2020-05-08 16:42 | NUR ---
PT AMB TO [facility]
[2020-05-08] MEDS ORDERED: cephALEXin 500 MG CAP PO ONE (16:50)
[2020-05-08] MEDS ORDERED: KETOROLAC 30 MG/ML VIAL IM ONE (16:50)
[2020-05-08] MEDS ORDERED: cephALEXin 500 MG CAP ONE (17:17)
--- NOTE | 2020-05-08 17:30 | NUR ---
C/O HEADACHE OVER R EYE, ACCOMPANIED BY BLURRY VISION. PT STATES SHE IS DIABETIC AND ALSO JUST HAD A ROOT CANAL DONE ON 05/06/20 WHICH SHE HAS BEEN TAKING IBUPROFEN FOR BUT IT IS NOT WORKING.
--- NOTE | 2020-05-08 18:00 | NUR ---
PT BEING EVALUATED BY ANURADHA LORD
[2020-05-08] MEDS ORDERED: TETRACAINE HCL/PF 0.5% OPTH 4 ML BTL OP ONE (18:15)
[2020-05-08] MEDS ORDERED: TOMOMETER 1 DEV DEV MC ONE (18:17)
[2020-05-08 18:35] VITALS: BP 161/75
--- NOTE | 2020-05-08 18:36 | NUR ---
Patient discharged with v/s stable. Written and verbal after care instructions given and explained. Patient alert, oriented and verbalized understanding of instructions. Ambulatory with steady gait. All questions addressed prior to discharge. ID band removed. Patient advised to follow up with PMD. Rx of NORCO 5MG-325MG given. Patient educated on indication of medication including possible reaction and side effects. Opportunity to ask questions provided and answered.
== END 2020-05-08 18:36 | disposition home or self-care (01) ==
LOC: MED 16:11
DX: K08.89 Other specified disorders of teeth and supporting structures (principal); R51.9 Headache, unspecified; H53.8 Other visual disturbances; E11.65 Type 2 diabetes mellitus with hyperglycemia; J45.909 Unspecified asthma, uncomplicated; I10 Essential (primary) hypertension; Z79.4 Long term (current) use of insulin; Z79.899 Other long term (current) drug therapy; Z79.82 Long term (current) use of aspirin; Z88.5 Allergy status to narcotic agent; Z88.8 Allergy status to other drugs, medicaments and biological substances; Z88.2 Allergy status to sulfonamides; Z85.42 Personal history of malignant neoplasm of other parts of uterus
CPT/HCPCS: 82948; 96372; 99283; J1885

== ENCOUNTER 2020-05-18 21:27 | Emergency (ER) | payer OTHER ==
[~2020-05-18] VITALS: Ht 165.1 cm; Wt 83.0 kg
[2020-05-18 21:45] VITALS: BP 170/85
--- NOTE | 2020-05-18 21:47 | NUR ---
44 YEAR OLD FEMALE COMPLAINS OF RIGHT EYE PAIN AND 10/10 HEADACHE. PT STATES THAT SHE LOST VISION ON RIGHT EYE AFTER THANKSGIVING AND HAS BEEN SEEING REAL ESTATE LEASING AGENT. PT STATES REAL ESTATE LEASING AGENT SAYS TO COME TO ER FOR CT SCAN IF HEADACHE OCCURS AND PERSISTS. PT STATES PAIN IS PRESSURE. PT AOX4, BREATHING EVEN AND UNLABORED, SKIN WARM AND DRY. PMH -HTN, DM2, ASTHMA ALLERGIES - SULFAS
--- NOTE | 2020-05-18 21:56 | NUR ---
ESTHERD MADE AWARE OF PT STATUS
[2020-05-19] MEDS ORDERED: MORPHINE SULFATE 4 MG/ML SYR IVP ONE (00:40)
[2020-05-19] MEDS ORDERED: ONDANSETRON 4 MG/2 ML VIAL IVP ONE (00:40)
[2020-05-19] MEDS ORDERED: TETRACAINE HCL/PF 0.5% OPTH 4 ML BTL OP ONE ×2 (01:30→04:50)
[2020-05-19 01:56] LABS: BASOPHILS % (AUTO) 0.5 % (0.0-2.0); EOSINOPHILS # (AUTO) 0.2 K/uL (0-0.4); EOSINOPHILS % (AUTO) 1.9 % (0.0-4.0); HEMATOCRIT 35.2 % (36-48); HEMOGLOBIN 11.6 g/dL (12.0-16.0); LYMPHOCYTES # (AUTO) 2.6 K/uL (2.5-16.5); MEAN CORPUSCULAR HEMOGLOBIN 27 pg (27-31); MEAN CORPUSCULAR HGB CONC 33 g/dL (33-37); MEAN CORPUSCULAR VOLUME 83.1 fL (80-94); MONOCYTES # (AUTO) 0.6 K/uL (0.8-1.0); MONOCYTES % (AUTO) 7.3 % (1.7-9.3); NEUTROPHILS # (AUTO) 5.3 K/uL (1.8-7.7); NEUTROPHILS % (AUTO) 60.3 % (42.2-75.2); PLATELET COUNT (AUTO) 361 K/uL (140-450); RED BLOOD CELL COUNT(AUTO) 4.24 MIL/uL (4.20-5.40); RED CELL DISTRIBUTION WIDTH 16.4 % (11.6-13.7); WHITE BLOOD COUNT (AUTO) 8.8 K/uL (4.8-10.8)
[2020-05-19] MEDS ORDERED: TETRACAINE HCL/PF 0.5% OPTH 4 ML BTL ONE (02:02)
[2020-05-19] MEDS ORDERED: TOMOMETER 1 DEV DEV MC ONE ×2 (02:03→04:07)
[2020-05-19 02:15] LABS: ANION GAP 11.5 (8-16); CARBON DIOXIDE 26.6 mmol/L (21-32); CREATININE 0.8 mg/dL (0.6-1.3); POTASSIUM 4.1 mmol/L (3.5-5.1)
[2020-05-19 02:23] LABS: TOTAL BILIRUBIN 0.3 mg/dL (0.0-1.0)
[2020-05-19 02:24] LABS: ALBUMIN 3.6 g/dL (3.4-5.0)
[2020-05-19] MEDS ORDERED: HYDROcodone/APAP 5/325 MG 1 TAB TAB PO ONE (02:30)
--- NOTE | 2020-05-19 03:50 | NUR ---
PATIENT TAKEN TO BED 11
--- NOTE | 2020-05-19 04:00 | NUR ---
PATIENT RESTING IN BED QUIETLY. WILL CONTINUE TO MONITOR.
[2020-05-19] MEDS ORDERED: HYDROcodone/APAP 5/325 MG 1 TAB TAB ONE (04:31)
--- NOTE | 2020-05-19 05:06 | NUR ---
PATIENT TAKEN TO CT
--- NOTE | 2020-05-19 05:28 | NUR ---
PATIENT IS SITTING IN BED. NO DISTRESS NOTED. WILL CONTINUE TO MONITOR
--- NOTE | 2020-05-19 05:33 | NUR ---
LEFT EYE 20/; RIGHT EYE IS COMPLETELY BLURRED. Addendum: 05/19/20 at 0653 by APRIL RIGHT EYE- +4 DILATED; [place] LEFT EYE- +3 BRISK
--- NOTE | 2020-05-19 06:45 | NUR ---
PATIENT IS RESTING WITH EYES CLOSED. NO PAIN NOTED.
--- NOTE | 2020-05-19 07:02 | NUR ---
COVID SWAB/MARIANN COLLECTED AND TAKEN TO LAB
[2020-05-19] MEDS ORDERED: METF-350 PO (07:05)
[2020-05-19] MEDS ORDERED: HUM SUBQ (07:24)
[2020-05-19] MEDS ORDERED: INSU100I7 SQ (07:25)
[2020-05-19] MEDS ORDERED: CARV25TA PO (07:27)
[2020-05-19] MEDS ORDERED: AMLO10TA PO (07:27)
--- NOTE | 2020-05-19 07:28 | NUR ---
Pt report given to KYLER OGMEZ. Transfer of care at this time.
--- NOTE | 2020-05-19 07:30 | NUR ---
report recieved from KYLER Chase. transfer of care at this time.
--- NOTE | 2020-05-19 08:20 | NUR ---
OBTAINED CONSENT FOR TRANSFER TO [facility].
--- NOTE | 2020-05-19 08:44 | NUR ---
CALLED TO GIVE REPORT TO KYLER AMARO AT [place]. ALL QUESTIONS ANSWERED. HE WAS MADE AWARE THAT PT WOULD BE IN PICKED UP AT 0900
[2020-05-19 09:19] VITALS: BP 160/86
--- NOTE | 2020-05-19 09:19 | NUR ---
Patient to be transferred to [place]. Is being transferred due to HIGHER LEVEL OF CARE. Receiving facility has accepting physician and available space. ER physician has signed transfer form. Patient or responsible libertarian has agreed to transfer and signed form. Patient belongings inventoried and will be sent with patient. Copy of nursing notes, lab reports, EKG, Physicians Orders and X-rays to be sent with patient. Report called to KYLER AMARO at receiving facility.ETA is 30 MIN.
== END 2020-05-19 09:19 | disposition short-term general hospital (02) ==
LOC: MED 21:27
DX: H54.61 Unqualified visual loss, right eye, normal vision left eye (principal); J45.909 Unspecified asthma, uncomplicated; I10 Essential (primary) hypertension; Z85.42 Personal history of malignant neoplasm of other parts of uterus; Z79.4 Long term (current) use of insulin; Z79.899 Other long term (current) drug therapy; Z88.1 Allergy status to other antibiotic agents; Z88.2 Allergy status to sulfonamides; Z88.8 Allergy status to other drugs, medicaments and biological substances
CPT/HCPCS: 36415; 70450; 70460; 80053; 85025; 85651; 99285; Q9967

== ENCOUNTER 2021-08-12 17:40 | Inpatient (IN) | payer OTHER, SELFPAY ==
[~2021-08-12] VITALS: Ht 165.1 cm; Wt 89.8 kg
[~2021-08-12 17:40] MED LIST changes: +AMLO10TA PO; -AMLO10TA89 PO; +ASPI-1749 PO; -ASPI-1884 PO; +BUS5 PO; +FURO-570 PO; +GABA300C PO; +INSU100I7 SQ; +METF-350 PO; -METF500T2 PO; +OMEP40EC24 PO; +ONDA-190 PO; +PHE25S PO; +VENL150C1 PO; +[UNRECOGNIZED DRUG - CODE] OP
--- NOTE | 2021-08-12 18:17 | NUR ---
PT AMBULATED TO ER BED 8 WITH A STEADY GAIT FOR BEDSIDE TRIAGE.
[2021-08-12 18:21] VITALS: BP 145/78
--- NOTE | 2021-08-12 18:38 | NUR ---
45 Y/O FEMALE C/O HEADACHE / DESCRIBES THROBBING AND PRESSURE LIKE X4DAYS S/P LUMBAR PUNCTURE. DENIES FEVER/CHILLS. DENIES N/V. PMH: HTN, DM, ASTHMA ALLERGIES: SULFA
[2021-08-12] MEDS ORDERED: diphenhydrAMINE 50 MG/ML VIAL IVP ONE (19:00)
[2021-08-12] MEDS ORDERED: NACL 0.9% 1,000 ML IV ONE ×2 (19:00→20:25)
[2021-08-12] MEDS ORDERED: METOCLOPRAMIDE 10 MG/2 ML INJ VIAL IVP ONE (19:00)
[2021-08-12] MEDS ORDERED: DEXAMETHASONE 10 MG/ML VIAL IVP ONE (19:00)
--- NOTE | 2021-08-12 19:30 | NUR ---
RADIOLOGY AT BEDSIDE
--- NOTE | 2021-08-12 19:31 | NUR ---
PT TAKEN TO CT VIA W/C.
--- NOTE | 2021-08-12 19:36 | NUR ---
PT TAKEN TO ER BED 8 VIA W/C.
--- NOTE | 2021-08-12 19:39 | NUR ---
GAVE REPORT TO KYLER SANCHEZ. TRANSFER OF CARE AT THIS TIME.
[2021-08-12 19:49] LABS: BASOPHILS % (AUTO) 0.6 % (0.0-2.0); EOSINOPHILS # (AUTO) 0.1 K/uL (0-0.4); EOSINOPHILS % (AUTO) 1.8 % (0.0-4.0); HEMATOCRIT 36.1 % (36-48); LYMPHOCYTES # (AUTO) 1.1 K/uL (2.5-16.5); LYMPHOCYTES % (AUTO) 13.7 % (20.5-51.1); MEAN CORPUSCULAR HEMOGLOBIN 28 pg (27-31); MEAN CORPUSCULAR HGB CONC 33 g/dL (33-37); MEAN CORPUSCULAR VOLUME 83.8 fL (80-94); MONOCYTES # (AUTO) 0.5 K/uL (0.8-1.0); MONOCYTES % (AUTO) 6.7 % (1.7-9.3); NEUTROPHILS # (AUTO) 6.2 K/uL (1.8-7.7); NEUTROPHILS % (AUTO) 77.2 % (42.2-75.2); PLATELET COUNT (AUTO) 300 K/uL (140-450); RED BLOOD CELL COUNT(AUTO) 4.31 MIL/uL (4.20-5.40); RED CELL DISTRIBUTION WIDTH 14.5 % (11.6-13.7); WHITE BLOOD COUNT (AUTO) 8.1 K/uL (4.8-10.8)
[2021-08-12 20:10] LABS: ALBUMIN 3.1 g/dL (3.4-5.0); ANION GAP 9.9 (8-16); CARBON DIOXIDE 29.2 mmol/L (21-32); POTASSIUM 4.1 mmol/L (3.5-5.1); TOTAL BILIRUBIN 0.4 mg/dL (0.0-1.0)
--- NOTE | 2021-08-12 20:23 | NUR ---
CRITICAL LAB RECEIVED: GLUCOSE 550. DR ABURTO MADE AWARE. NO NEW ORDERS AT THIS TIME.
[2021-08-12] MEDS ORDERED: KETOROLAC 15 MG/ML VIAL IVP ONE (21:00)
[2021-08-12] MEDS ORDERED: ACETAMINOPHEN EXTRA STRENGTH 500 MG TAB PO ONE (21:00)
[2021-08-12] MEDS ORDERED: INSULIN REGULAR, HUMAN 100 UNIT/ML VIAL SUBQ ONE (21:00)
[2021-08-12] MEDS ORDERED: ACETAMINOPHEN 325 MG TAB PO PRN (21:10)
[2021-08-12] MEDS ORDERED: MAGNESIUM OXIDE 400 MG TAB PO PRN (21:10)
[2021-08-12] MEDS ORDERED: KCL 20 MEQ/WATER INJ PREMIX 200 ML IV PRN (21:10)
[2021-08-12] MEDS ORDERED: MAG SULF 2000 MG/WATER PREMIX 50 ML IV PRN (21:10)
[2021-08-12] MEDS ORDERED: POTASSIUM CHLORIDE 10 MEQ TABER PO PRN (21:10)
[2021-08-12] MEDS ORDERED: DEXTROSE 50% 50 ML SYR IVP PRN (21:20)
--- NOTE | 2021-08-12 21:42 | NUR ---
COVID SWAB(MARIANN) SENT TO LAB
[2021-08-12] MEDS ORDERED: METF-1022 PO (23:46)
[2021-08-12] MEDS ORDERED: INSU100I7 SQ (23:46)
--- NOTE | 2021-08-13 00:58 | NUR ---
RECEIVED PATIENT FROM ER PER WHEELCHAIR. PATIENT TRANSFERRED TO BED SAFELY. PATIENT INDEPENDENT WITH STEADY GAIT. VITAL SIGNS TAKEN AND RECORDED. ADMISSION DOCUMENTATIONS DONE. MRSA SWAB DONE. ORIENTED TO MALATHI, CALL LIGHT WITHIN REACH. ADVISED TO CALL FOR FURTHER NEEDS. WILL CONTINUE TO MONITOR PATIENT.
[2021-08-13 01:06] VITALS: BP 162/79
[2021-08-13] MEDS: INSULIN LISPRO SLIDING SCALE 100 UNITS/ML VIAL SUBQ PRN ×5 (01:34→21:20)
--- NOTE | 2021-08-13 01:47 | NUR ---
PATIENT BS CHECKED BEC PT ASKED FOR SNACK AND LAST BS CHECKED IN ER IS STILL ELEVATED. BS RESULTED TO 523, CHARGE NURSE MADE AWARE, MD MADE AWARE, NO RESPONSE. PER CN , MAY GIVE PRN INSULIN PER SLIDING SCALE AND WILL CHECK AGAIN IN AM. 10 UNITS SQ GIVEN PER SLIDING SCALE, WILL AWAIT FOR FURTHER ORDER AND WILL RECHECK IN AM.
[2021-08-13 04:00] VITALS: BP 168/81
[2021-08-13] MEDS: HYDROcodone/APAP 5/325 MG 1 TAB TAB PO PRN (04:07)
[2021-08-13] MEDS: BLOOD GLUCOSE MONITORING 1 DEV DEV FS SCH ×4 (06:43→21:18)
[2021-08-13 07:04] LABS: BASOPHILS % (AUTO) 0.1 % (0.0-2.0); HEMATOCRIT 36.9 % (36-48); HEMOGLOBIN 12.2 g/dL (12.0-16.0); LYMPHOCYTES # (AUTO) 0.5 K/uL (2.5-16.5); LYMPHOCYTES % (AUTO) 6.4 % (20.5-51.1); MEAN CORPUSCULAR HEMOGLOBIN 28 pg (27-31); MEAN CORPUSCULAR HGB CONC 33 g/dL (33-37); MEAN CORPUSCULAR VOLUME 83.2 fL (80-94); MONOCYTES # (AUTO) 0.1 K/uL (0.8-1.0); MONOCYTES % (AUTO) 1.3 % (1.7-9.3); NEUTROPHILS # (AUTO) 7.7 K/uL (1.8-7.7); PLATELET COUNT (AUTO) 322 K/uL (140-450); RED BLOOD CELL COUNT(AUTO) 4.43 MIL/uL (4.20-5.40); RED CELL DISTRIBUTION WIDTH 14.2 % (11.6-13.7); WHITE BLOOD COUNT (AUTO) 8.4 K/uL (4.8-10.8)
--- NOTE | 2021-08-13 07:30 | NUR ---
BS THIS MORNING IS 412, 10 UNITS PER SLIDING SCALE GIVEN. MD MADE AWARE. REPORT GIVEN TO MORNING NURSE. PATIENT RESTING COMFORTABLY ON BED.
[2021-08-13 07:36] LABS: NEUTROPHILS % (AUTO) 92.2 % (42.2-75.2)
[2021-08-13 07:51] LABS: ALBUMIN 2.9 g/dL (3.4-5.0); ANION GAP 14.1 (8-16); CARBON DIOXIDE 24.1 mmol/L (21-32); MAGNESIUM 1.9 mg/dL (1.8-2.4); POTASSIUM 4.2 mmol/L (3.5-5.1); TOTAL BILIRUBIN 0.3 mg/dL (0.0-1.0)
[2021-08-13] MEDS: INSULIN LISPRO 100 UNITS/ML VIAL SUBQ SCH ×3 (08:28→17:12)
--- NOTE | 2021-08-13 09:56 | NUR ---
PT IS AOx4, VSS, NAD NOTED. PT GLUCOSE 372 THIS MORNING. 10UNITS GIVEN VIA ORDER. PT AWARE OF POC, WILL CONTINUE TO MONITOR.
[2021-08-13 12:00] VITALS: BP 154/76
--- NOTE | 2021-08-13 12:07 | NUR ---
I INFORMED DR. DAY OF PT'S GLUCOSE OF 420. INFORMED TO GIVE 20UNITS HUMALOG x1.
[2021-08-13] MEDS: NACL 0.9% 1,000 ML IV SCH ×2 (13:40→22:57)
[2021-08-13] MEDS ORDERED: INSULIN LANTUS 100 UNITS/ML 10 ML VIAL SUBQ SCH (17:00)
[2021-08-13] MEDS: metFORMIN 500 MG TAB PO SCH (17:01)
[2021-08-13] MEDS: KETOROLAC 15 MG/ML VIAL IVP SCH ×2 (17:02→23:12)
[2021-08-13] MEDS: cephALEXin 500 MG CAP PO SCH ×2 (17:14→23:13)
[2021-08-13] MEDS: GABAPENTIN 300 MG CAP PO SCH (17:14)
[2021-08-13] MEDS: CLONIDINE HYDROCHLORIDE 0.1 MG TAB PO PRN (17:55)
--- NOTE | 2021-08-13 18:43 | NUR ---
PT IS AOx4, NAD NOTED. PT'S GLUCOSE REMAINING ELEVATED. MD AWARE, PT STARTED ON HOME MEDICATIONS, WILL ENDORSE TO HAND CANDLE MOLDER RN.
--- NOTE | 2021-08-13 19:22 | NUR ---
PT IN STABLE CONDITION, ENDORSED CARE TO CINDER CRUSHER OPERATOR RN.
--- NOTE | 2021-08-13 19:25 | NUR ---
RECEIVED PT REPORT FR4OM AM NURSE. DISCUSSED POC FOR CONTINUITY OF CARE. REASSESSED PT'S BP FROM CATAPRESS GIVEN AT 17:15. VS: BP NOW 162/80, P-78, RR-18, T- 97.3, O2 NQP=442%. STILL C/O 7/10 OCCIPITAL PAIN BEHIND R EYE AND CENTER OF FOREHEAD. MEDICATED WITH MSO4 2MG/0.5ML IVP. WILL CONTINUE TO OBSERVE.
[2021-08-13] MEDS: MORPHINE SULFATE 4 MG/ML SYR IVP PRN (19:51)
[2021-08-13 20:00] VITALS: BP 148/79
--- NOTE | 2021-08-13 21:00 | NUR ---
MSO4 EFFECTIVE. PT RESTING EYES CLOSED. REPORTED PAIN NOW /10. BS= 372. RECEIVED SCHEDULED LANTUS INSULIN 48 UNITS PLUS 10 UNITS HUMALOG INSULIN PERT SLIDING SCALE. DENIES PAIN AT THIS TIME. ALL SAFETY MEASURES IN PLACE. PT STABLE.
[2021-08-13] MEDS: INSULIN LANTUS 100 UNITS/ML 10 ML VIAL SUBQ SCH (21:21)
--- NOTE | 2021-08-14 | NUR ---
SCHEDULED [place] MEDS GIVEN FOR PAIN AND INFECTION. AMBULATES AD NEDRA. LAC 20G IV PATENT AND INFUSING NS@100CC/HR.NAD. CALL LIGHT WITHIN REACH. WILL CONTINUE TO OBSERVE.
[2021-08-14] MEDS: NACL 0.9% 1,000 ML IV SCH ×3 (02:36→20:22)
[2021-08-14 04:00] VITALS: BP 161/77
[2021-08-14] MEDS: cephALEXin 500 MG CAP PO SCH ×3 (05:37→18:09)
[2021-08-14] MEDS: KETOROLAC 15 MG/ML VIAL IVP SCH ×2 (05:37→11:49)
[2021-08-14 06:00] VITALS: BP 161/77
[2021-08-14] MEDS: BLOOD GLUCOSE MONITORING 1 DEV DEV FS SCH ×4 (06:25→20:40)
[2021-08-14] MEDS: INSULIN LISPRO SLIDING SCALE 100 UNITS/ML VIAL SUBQ PRN ×3 (06:29→16:35)
--- NOTE | 2021-08-14 06:30 | NUR ---
PT SLEPT SOUNDLY RR EVEN AND UNLABORED WITH EQUAL CHEST RISE. 0600 MEDS GIVEN BS= 321 COVERED WITH 8 UNITS HUMALOG INSULIN PER SLIDING SCALE. CONTINUE TO MONITOR.
[2021-08-14 06:43] LABS: BASOPHILS % (AUTO) 0.2 % (0.0-2.0); EOSINOPHILS # (AUTO) 0.1 K/uL (0-0.4); EOSINOPHILS % (AUTO) 1.5 % (0.0-4.0); HEMATOCRIT 32.8 % (36-48); LYMPHOCYTES # (AUTO) 1.6 K/uL (2.5-16.5); LYMPHOCYTES % (AUTO) 19.8 % (20.5-51.1); MEAN CORPUSCULAR HEMOGLOBIN 28 pg (27-31); MEAN CORPUSCULAR HGB CONC 34 g/dL (33-37); MEAN CORPUSCULAR VOLUME 82.9 fL (80-94); MONOCYTES # (AUTO) 0.5 K/uL (0.8-1.0); MONOCYTES % (AUTO) 6.6 % (1.7-9.3); NEUTROPHILS # (AUTO) 5.9 K/uL (1.8-7.7); NEUTROPHILS % (AUTO) 71.9 % (42.2-75.2); PLATELET COUNT (AUTO) 305 K/uL (140-450); RED BLOOD CELL COUNT(AUTO) 3.95 MIL/uL (4.20-5.40); RED CELL DISTRIBUTION WIDTH 14.5 % (11.6-13.7); WHITE BLOOD COUNT (AUTO) 8.2 K/uL (4.8-10.8)
--- NOTE | 2021-08-14 07:22 | NUR ---
ENDORSED REPORT TO AM NURSE DISCUSSED POC FOR CONTINUITY OF CARE.
--- NOTE | 2021-08-14 07:23 | NUR ---
RECEIVED REPORT FROM POCKET MAKER NURSE FOR CONTINUITY OF CARE. PT IS AWAKE AND ALERT, X4. RESPIRATIONS ARE EVEN AND UNLABORED ON ROOM AIR. NO SIGNS OF DISTRESS NOTED. LUNG SOUNDS CLEAR ON AUSCULTATION. PT IS ON CCHO DIET, ABD IS NONTENDER, NONDISTENDED WITH BOWEL SOUNDS PRESENT. PT STATES LAST BOWEL MOVEMENT WAS YESTERDAY. PT SKIN IS WARM, DRY, AND INTACT. PT HAS L AC 20G IV. INTACT AND PATENT. CALL LIGHT WITHIN REACH. ALL SAFETY MEASURES IN PLACE. WILL CONTINUE TO MONITOR.
[2021-08-14 08:00] VITALS: BP 166/75
--- NOTE | 2021-08-14 08:00 | NUR ---
Patient's Plan of Care was discussed and reviewed with TRANSPORTATION PLANNER: MILAGROS ROLDAN
[2021-08-14] MEDS: INSULIN LISPRO 100 UNITS/ML VIAL SUBQ SCH ×3 (08:29→16:36)
[2021-08-14] MEDS: GABAPENTIN 300 MG CAP PO SCH ×3 (08:34→16:39)
[2021-08-14] MEDS: amLODIPine 5 MG TAB PO SCH (08:34)
[2021-08-14] MEDS: metFORMIN 500 MG TAB PO SCH ×2 (08:35→16:39)
--- NOTE | 2021-08-14 08:40 | NUR ---
ADMINISTERED ALL SCHEDULED MEDICATIONS. EDUCATED PT REGARDING MEDS ADMINISTERED. PT VERBALIZED UNDERSTANDING. WILL CONTINUE TO MONITOR.
[2021-08-14 09:26] LABS: ALBUMIN 2.8 g/dL (3.4-5.0); ANION GAP 14.4 (8-16); CARBON DIOXIDE 22.4 mmol/L (21-32); POTASSIUM 3.8 mmol/L (3.5-5.1); TOTAL BILIRUBIN 0.2 mg/dL (0.0-1.0)
--- NOTE | 2021-08-14 10:28 | NUR ---
PATIENT HAS BEEN SCREENED AND CATEGORIZED HIGH NUTRITION RISK. PATIENT WILL BE SEEN WITHIN 1-2 DAYS OF ADMISSION. RECEIVED REFERRAL FOR UNCONTROLLED DIABETES [address]
--- NOTE | 2021-08-14 11:47 | NUR ---
PT BLOOD GLUCOSE WAS 244. COVERED WITH 4 UNITS INSULIN PER SLIDING SCALE. WILL CONTINUE TO MONITOR.
--- NOTE | 2021-08-14 11:54 | NUR ---
TORADOL 15MG IVP GIVEN WITH EDUCATION. PATIENT VERBALIZED UNDERSTANDING. PATIENT TOLERATED WELL. NO SIGN OF DISTRESS NOTED. CALL LIGHT WITHIN REACH. WILL CONTINUE TO MONITOR.
--- NOTE | 2021-08-14 14:26 | NUR ---
DID ROUNDS ON PT. PT STATES SHE IS FEELING NAUSEATED. OFFERED PT ANTIEMETIC. PT REFUSED. STATES "I THINK I JUST FEEL SLIGHTLY NAUSEATED BECAUSE OF THE SITUATION IM IN. IM JUST FRUSTRATED". PT REQUESTED DIET LEMON GUIDIVILLE SODA. CALL LIGHT WITHIN REACH. ALL SAFETY MEASURES IN PLACE. WILL CONTINUE TO MONITOR.
--- NOTE | 2021-08-14 15:14 | NUR ---
DC PLANNIN YRS OLD FEMALE PATIENT WAS ADMITTED FROM HOME WITH A DX OF UNCONTROLLED HEADACHE. 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 CT HEAD SHOWED NO EVIDENCE OF ACUTE INTRACRANIAL HEMORRHAGE, MASS EFFECT OF HYDROCEPHALUS. ADMINISTERED IVF, AND CONTINUED HOME MEDS. DC PLAN TO GO HOME WHEN STABLE CM TO FOLLOW Addendum: 08/14/21 at 1806 by Odessa SWANSON DC PLANNING PATIENT IS A 45 YEAR-OLD FEMALE ADMITTED DUE TO GRADUALLY WORSENING FRONTAL HEADACHE THAT RADIATES DOWN THE SIDES OF HER NECK. 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 MARCIAL MET WITH PATIENT AT BEDSIDE TO DISCUSS AND GATHER PATIENT'S COLLATERAL INFORMATION. PATIENT REPORTED LIVING AT HOME WITH HER 26 YEAR OLD DAUGHTER NOMI CLARK AND 3 OTHER YOUNGER CHILDREN. PATIENT STATED HAVING PLENTY OF SUPPORT FROM HER FAMILY, MOTHER LIANET DICKENS IS HER EMERGENCY CONTACT AND HER MEDICAL DECISION MAKER. PATIENT REPORTED NOT HAVING ADVANCE DIRECTIVES AND WAS NOT INTERESTED ON GETTING A.D. INFORMATION PACKET PROVIDED BY MARCIAL AT THE TIME OF VISIT. PATIENT REPORTED BEEN ACTIVE AND INDEPENDENT AT HOME AND NOT HAVING ANY DME AT HOME. PATIENT STATED NOT HAVING ANY ISSUES WITH GETTING OR TAKING ANY MEDICATIONS FROM [facility] NEAR HER HOME IN [facility]. MARCIAL EXPLAINED TO PATIENT THE NEED TO FOLLOW UP WITH AN APPOINTMENT WITH HER PCP WITHIN 5-7 DAYS AFTER HER DC FROM [facility]. PATIENT AGREED,HOWEVER; STATED WANTING TO DO HER APPOINTMENT ON HER OWN AND DECLINED FOR SW TO DO HER APPOINTMENT FOR HER. PATIENT STATED "NO THANK YOU I'LL LIKE TO MAKE MY OWN APPOINTMENT AFTER I DISCHARGE" PATIENT STATED THAT HER MOTHER OR DAUGHTER WILL BE ASSISTING WITH HER TRANSPORTATION BACK HOME WHEN SHE IS READY FOR DISCHARGE FROM [facility]. SW WILL FOLLOW UP WITH PATIENT NEEDED. Addendum: 08/15/21 at 1415 by Luz Trejo RN DC PLANNING: PATIENT COMPLAIN OF ABSCESS-LIKE FORMATION ON HER RIGHT INNER THIGH. ORDERED US OF RIGHT LOWER EXTREMITY , IF NEGATIVE FOR ABSCESS WILL BE DC HOME. CM TO FOLLOW Addendum: 08/17/21 at 1120 by Luz Trejo RN DC PLANNING: PATIENT HAS AN ORDER FOR HOME HEALTH FOR WOUND CARE. FAXED TO [facility] AND 3 CHOICES OF VENDOR GIVEN. 1/ [facility], 2/ [facility] 3/ [email or web address]. PATIENT CHOICE WAS [facility]. AWAITING FOR RESPONSE. CM TO FOLLOW Addendum: 08/17/21 at 1624 by Luz Trejo RN DC PLANNING: PATIENT PREFERRED [facility], [facility] WILL PROVIDE AUTH TO [facility] AND WILL VISIT PATIENT TOMORROW. CM TO FOLLOW .
--- NOTE | 2021-08-14 15:57 | NUR ---
08/14/21 RD INITIAL ASSESSMENT COMPLETED PLEASE REFER TO NUTRITION ASSESSMENT UNDER CARE ACTIVITY FOR ESTIMATED NUTRITIONAL NEEDS. 1. CONT[facility]UE [facility] DIET TOLERATED 2. RECOMMEND GLUCERNA BID PER RD PROTOCOL 3. MONITOR BLOOD GLUCOSE LEVELS 4. RD TO FOLLOW-UP 3-5 DAYS, MODERATE RISK JOEL LYNN RD
[2021-08-14 16:00] VITALS: BP 163/81
--- NOTE | 2021-08-14 16:22 | NUR ---
PT BLOOD GLUCOSE WAS 210. COVERED WITH 4 UNITS INSULIN PER SLIDING SCALE. WILL CONTINUE TO MONITOR.
--- NOTE | 2021-08-14 17:49 | NUR ---
PT PRESSED CALL LIGHT, ASKING FOR EMESIS BAG. BROUGHT OVER BAG. ASKED PT IF SHE HAD ANY EPISODES OF EMESIS, PT DENIES ANY EMESIS. OFFERED PT ANTI EMETIC. PT REFUSED. WILL CONTINUE TO MONITOR.
[2021-08-14] MEDS: HYDROcodone/APAP 5/325 MG 1 TAB TAB PO PRN (18:33)
--- NOTE | 2021-08-14 19:05 | NUR ---
ENDORSED PT TO SENIOR DIRECTOR NURSE FOR CONTINUITY OF CARE. ALL NEEDS MET THROUGHOUT SHIFT. RESPIRATIONS ARE EVEN AND UNLABORED. NO SIGNS OF DISTRESS NOTED. PT IS STABLE.
--- NOTE | 2021-08-14 19:20 | NUR ---
RECEIVED PATIENT FROM AM NURSE FOR CONTINUITY OF CARE.PATIENT IS STABLE,NO DISTRESS NOTED
[2021-08-14] MEDS: INSULIN LANTUS 100 UNITS/ML 10 ML VIAL SUBQ SCH (20:42)
[2021-08-14] MEDS: CLONIDINE HYDROCHLORIDE 0.1 MG TAB PO PRN (22:59)
--- NOTE | 2021-08-14 23:00 | NUR ---
PATIENT COMPLAIN OF SEVERE HEADACHE AND VOMITING. MORPHINE 2MG (0.5 ML) IVP AND ZOFRAN 4MG IVP ADMINISTERED. WILL CONTINUE TO MONITOR.
[2021-08-14] MEDS: ONDANSETRON 4 MG/2 ML VIAL IVP PRN (23:24)
[2021-08-14] MEDS: MORPHINE SULFATE 4 MG/ML SYR IVP PRN (23:25)
[2021-08-15] VITALS: BP 162/78
--- NOTE | 2021-08-15 00:29 | NUR ---
BP REASSESED 152/66 PULSE 84, PAIN REDUCED TO 3/10,NO DISTRESS NOTED
[2021-08-15] MEDS: cephALEXin 500 MG CAP PO SCH ×5 (00:57→23:33)
--- NOTE | 2021-08-15 02:00 | NUR ---
PATIENT SLEEPING.BREATHING EVEN AND UNLABORED ,SAFETY MEASURES IN PLACE
--- NOTE | 2021-08-15 04:00 | NUR ---
PATIENT ASLEEP ,BREATHING EVEN AND UNLABORED,NO DISTRESS NOTED
[2021-08-15] MEDS: NACL 0.9% 1,000 ML IV SCH ×2 (05:36→15:44)
--- NOTE | 2021-08-15 06:00 | NUR ---
PATIENT IS AWAKE,NO COMPLAIN OF PAIN OF PAIN OR HEADACHE.
[2021-08-15 07:05] LABS: BASOPHILS % (AUTO) 0.3 % (0.0-2.0); EOSINOPHILS # (AUTO) 0.2 K/uL (0-0.4); EOSINOPHILS % (AUTO) 1.9 % (0.0-4.0); HEMATOCRIT 35.2 % (36-48); HEMOGLOBIN 11.6 g/dL (12.0-16.0); LYMPHOCYTES # (AUTO) 1.7 K/uL (2.5-16.5); LYMPHOCYTES % (AUTO) 17.3 % (20.5-51.1); MEAN CORPUSCULAR HEMOGLOBIN 28 pg (27-31); MEAN CORPUSCULAR HGB CONC 33 g/dL (33-37); MEAN CORPUSCULAR VOLUME 83.5 fL (80-94); MONOCYTES % (AUTO) 10.3 % (1.7-9.3); NEUTROPHILS # (AUTO) 6.7 K/uL (1.8-7.7); NEUTROPHILS % (AUTO) 70.2 % (42.2-75.2); PLATELET COUNT (AUTO) 330 K/uL (140-450); RED BLOOD CELL COUNT(AUTO) 4.22 MIL/uL (4.20-5.40); RED CELL DISTRIBUTION WIDTH 14.4 % (11.6-13.7); WHITE BLOOD COUNT (AUTO) 9.6 K/uL (4.8-10.8)
--- NOTE | 2021-08-15 07:25 | NUR ---
ENDORSED PT TO AM NURSE FOR CONTINUITY OF CARE,PT IS STABLE
--- NOTE | 2021-08-15 07:26 | NUR ---
RECEIVED REPORT FROM DAMPER WORKER NURSE FOR CONTINUITY OF CARE. PT IS IN BED RESTING AT THIS TIME. PT IS AWAKE AND ALERT, X4, ABLE TO VERBALIZE NEEDS TO STAFF. RESPIRATIONS ARE EVEN AND UNLABORED ON ROOM AIR. NO SIGNS OF DISTRESS NOTED. LUNG SOUNDS CLEAR ON AUSCULTATION. PT IS ON CCHO DIET, ABD IS NONTENDER, NONDISTENDED WITH BOWEL SOUNDS PRESENT. PT SKIN IS WARM, DRY, AND INTACT. PT HAS L AC 20G IV. INTACT AND PATENT. CALL LIGHT WITHIN REACH. ALL SAFETY MEASURES IN PLACE. WILL CONTINUE TO MONITOR.
[2021-08-15 07:38] LABS: ALBUMIN 2.8 g/dL (3.4-5.0); ANION GAP 9.9 (8-16); CARBON DIOXIDE 27.6 mmol/L (21-32); CREATININE 0.8 mg/dL (0.6-1.3); MAGNESIUM 1.8 mg/dL (1.8-2.4); POTASSIUM 3.5 mmol/L (3.5-5.1); TOTAL BILIRUBIN 0.3 mg/dL (0.0-1.0)
[2021-08-15] MEDS: BLOOD GLUCOSE MONITORING 1 DEV DEV FS SCH ×4 (07:58→20:28)
[2021-08-15 08:00] VITALS: BP 150/69
[2021-08-15] MEDS: INSULIN LISPRO 100 UNITS/ML VIAL SUBQ SCH ×2 (08:40→12:28)
[2021-08-15] MEDS: amLODIPine 5 MG TAB PO SCH (08:42)
[2021-08-15] MEDS: GABAPENTIN 300 MG CAP PO SCH ×3 (08:42→17:01)
[2021-08-15] MEDS: metFORMIN 500 MG TAB PO SCH ×2 (08:42→17:01)
--- NOTE | 2021-08-15 08:45 | NUR ---
ADMINISTERED ALL SCHEDULED MEDICATIONS. EDUCATED PT REGARDING MEDS ADMINISTERED. ANSWERED ALL QUESTIONS. PT TOLERATED WELL. WILL CONTINUE TO MONITOR.
--- NOTE | 2021-08-15 11:21 | NUR ---
PT BLOOD GLUCOSE WAS 108. NO INSULIN COVERAGE NEEDED PER SLIDING SCALE. WILL CONTINUE TO MONITOR.
--- NOTE | 2021-08-15 12:28 | NUR ---
HELD SCHEDULED INSULIN 10 UNITS. PT BLOOD GLUCOSE 89. MADE AWARE. WILL CONTINUE TO MONITOR.
[2021-08-15] MEDS ORDERED: IBUPROFEN 800 MG TAB PO PRN (12:40)
--- NOTE | 2021-08-15 15:15 | NUR ---
DID ROUNDS ON PT. PT IN BED TALKING ON THE PHONE. PT APPEARS IN GOOD SPIRITS. NO COMPLAINTS OF PAIN OR DISCOMFORT AT THIS TIME. RESPIRATIONS ARE EVEN AND UNLABORED. NO SIGNS OF DISTRESS NOTED. WILL CONTINUE TO MONITOR.
[2021-08-15 16:00] VITALS: BP 153/82
[2021-08-15] MEDS: INSULIN LISPRO SLIDING SCALE 100 UNITS/ML VIAL SUBQ PRN ×2 (16:49→20:30)
--- NOTE | 2021-08-15 16:50 | NUR ---
PT BLOOD GLUCOSE WAS 168. COVERED WITH 2 UNITS INSULIN PER SLIDING SCALE. WILL CONTINUE TO MONITOR.
--- NOTE | 2021-08-15 19:15 | NUR ---
RECEIVED REPORT FROM MORNING SHIFT NURSE. PATIENT RESTING ON BED. BREATHING EVEN AND UNLABORED. IV FLUIDS ONGOING AT DESIRED RATE. NO COMPLAINTS AT THIS TIME. BED LOCKED AT LOWEST WITH CALL LIGHT WITHIN REACH. WILL CONTINUE TO MONITOR AND ASSESS PATIENT.
--- NOTE | 2021-08-15 19:15 | NUR ---
ENDORSED PT TO RECORDS ASSOCIATE NURSE FOR CONTINUITY OF CARE. ALL NEEDS MET THROUGHOUT SHIFT. PT IS STABLE.
[2021-08-15] MEDS: INSULIN LANTUS 100 UNITS/ML 10 ML VIAL SUBQ SCH (20:31)
[2021-08-15] MEDS: MORPHINE SULFATE 4 MG/ML SYR IVP PRN (21:42)
[2021-08-16] MEDS: NACL 0.9% 1,000 ML IV SCH ×3 (01:29→21:40)
[2021-08-16 04:00] VITALS: BP 159/88
[2021-08-16] MEDS: cephALEXin 500 MG CAP PO SCH ×2 (05:23→12:20)
[2021-08-16] MEDS: INSULIN LISPRO SLIDING SCALE 100 UNITS/ML VIAL SUBQ PRN ×3 (06:36→21:00)
[2021-08-16] MEDS: BLOOD GLUCOSE MONITORING 1 DEV DEV FS SCH ×4 (06:36→20:58)
--- NOTE | 2021-08-16 07:05 | NUR ---
RECEIVED REPORT FROM GEOGRAPHICAL HISTORIAN NURSE FOR CONTINUITY OF CARE.
[2021-08-16 07:15] LABS: BASOPHILS % (AUTO) 0.3 % (0.0-2.0); EOSINOPHILS # (AUTO) 0.1 K/uL (0-0.4); EOSINOPHILS % (AUTO) 1.6 % (0.0-4.0); HEMATOCRIT 32.2 % (36-48); HEMOGLOBIN 10.7 g/dL (12.0-16.0); LYMPHOCYTES # (AUTO) 1.3 K/uL (2.5-16.5); LYMPHOCYTES % (AUTO) 15.7 % (20.5-51.1); MEAN CORPUSCULAR HEMOGLOBIN 27 pg (27-31); MEAN CORPUSCULAR HGB CONC 33 g/dL (33-37); MEAN CORPUSCULAR VOLUME 82.5 fL (80-94); MONOCYTES # (AUTO) 0.8 K/uL (0.8-1.0); MONOCYTES % (AUTO) 9.5 % (1.7-9.3); NEUTROPHILS # (AUTO) 6.1 K/uL (1.8-7.7); NEUTROPHILS % (AUTO) 72.9 % (42.2-75.2); PLATELET COUNT (AUTO) 317 K/uL (140-450); RED BLOOD CELL COUNT(AUTO) 3.91 MIL/uL (4.20-5.40); RED CELL DISTRIBUTION WIDTH 14.4 % (11.6-13.7); WHITE BLOOD COUNT (AUTO) 8.4 K/uL (4.8-10.8)
--- NOTE | 2021-08-16 07:18 | NUR ---
ENDORSED TO MORNING SHIFT RN FOR CONTINUITY OF CARE.. PATIENT STABLE AND RESTING ON BED.
[2021-08-16 07:35] LABS: ALBUMIN 2.5 g/dL (3.4-5.0); ANION GAP 12.6 (8-16); CARBON DIOXIDE 24.9 mmol/L (21-32); CREATININE 0.7 mg/dL (0.6-1.3); MAGNESIUM 1.7 mg/dL (1.8-2.4); POTASSIUM 3.5 mmol/L (3.5-5.1); TOTAL BILIRUBIN 0.3 mg/dL (0.0-1.0)
--- NOTE | 2021-08-16 08:08 | NUR ---
RECEIVED REPORT FROM MILAGROS NGUYỄN FOR CONTINUITY OF CARE. PT IS STABLE. PLAN OF CARE DISCUSSED.
[2021-08-16] MEDS: metFORMIN 500 MG TAB PO SCH ×2 (08:55→17:00)
[2021-08-16] MEDS: GABAPENTIN 300 MG CAP PO SCH ×3 (08:56→17:00)
[2021-08-16] MEDS: amLODIPine 5 MG TAB PO SCH (08:57)
--- NOTE | 2021-08-16 09:04 | NUR ---
Patient alert no distress noted. given oral medication tolerated well. Call light with in easy reach.
--- NOTE | 2021-08-16 09:33 | NUR ---
PATIENT COMPLAIN OF NAUSEA AND HEAD ACHE AND REQUESTED FOR MEDICATION INFORM RN.
[2021-08-16] MEDS: MORPHINE SULFATE 4 MG/ML SYR IVP PRN (09:44)
[2021-08-16] MEDS: ONDANSETRON 4 MG/2 ML VIAL IVP PRN (09:44)
--- NOTE | 2021-08-16 09:44 | NUR ---
PATIENT COMPLAINS OF NAUSEA AND PAIN. ZOFRAN AND MORPHINE 2 MG GIVEN AT THIS TIME PER MD ORDERS. WASTED 0.5 ML OF MORPHINE WITH LVL CHRIS. WILL CONTINUE TO MONITOR.
[2021-08-16 12:00] VITALS: BP 152/66
--- NOTE | 2021-08-16 12:22 | NUR ---
GIVEN ORAL MEDICATION NO ADVERSE REACTION NOTED. ALL SAFETY MEASURE IN PLACE.
--- NOTE | 2021-08-16 13:44 | NUR ---
DR. HARRIS AT BED SIDE SPOKE TO PT REGARDING THE NEW ORDER FOR HER. DR. STEELE ALSO CALLED TO PUT PATIENT TO NPO FOR POSSIBLE I AND D OF ABSCESS ON GROIN AREA.
--- NOTE | 2021-08-16 15:30 | NUR ---
PATIENT ON BED ASLEEP NO DISTRESS NOTED. CONTINUE ON NPO FOR I AND D PROCEDURE.
--- NOTE | 2021-08-16 17:53 | NUR ---
BLOOD SUGAR CHECKED ITS ONLY 141 AND PT IS GOING TO SURGERY GABAPENTIN AND GLUCOPHAGE NOT GIVE.
[2021-08-16] MEDS ORDERED: BUPIVACAINE-MPF/EPI 0.25% 10 ML VIAL INJ ONE (18:24)
--- NOTE | 2021-08-16 18:27 | NUR ---
PATIENT ALERT AND ORIENTED . WHEELED BY OR STAFF TO OR FOR HER I AND D PROCEDURE.
[2021-08-16] MEDS ORDERED: LIDOCAINE MPF 2% 100 MG/5 ML VIAL INJ ONE (18:46)
[2021-08-16] MEDS ORDERED: ONDANSETRON 4 MG/2 ML VIAL ONE (18:46)
[2021-08-16] MEDS ORDERED: PROPOFOL 200 MG/20 ML VIAL IV ONE (18:46)
[2021-08-16] MEDS ORDERED: fentaNYL citrate 0.05 MG/ML VIAL ONE (18:46)
[2021-08-16] MEDS ORDERED: MIDAZOLAM 2 MG/2 ML VIAL ONE (18:47)
--- NOTE | 2021-08-16 19:23 | NUR ---
PATIENT STILL AT OR GAVE REPORT TO SAP PPM CONSULTANT NURSE FOR CONTINUITY OF CARE.
[2021-08-16 20:35] VITALS: BP 146/71
--- NOTE | 2021-08-16 20:35 | NUR ---
RECEIVED PATIENT FROM OR. VS TAKEN AND RECORDED. PATIENT AWAKE, AOX4. RESUMED DIET AND IV FLUIDS AT DESIRED RATE. WILL CONTINUE TO MONITOR PATIENT.
[2021-08-16] MEDS: PIPERACILLIN/TAZOBACTAM 3.375 GM in DEXTROSE 5% 50 ML IV SCH (20:56)
[2021-08-16] MEDS: INSULIN LANTUS 100 UNITS/ML 10 ML VIAL SUBQ SCH (21:02)
--- NOTE | 2021-08-17 03:44 | NUR ---
PATIENT'S CHUX AND GOWN SATURATED WITH SEROSANGUINOUS DRAINAGE FROM WOUND.WOUND DRESSING CHANGED. WILL CONTINUE TO MONITOR AND ASSESS.
[2021-08-17 04:00] VITALS: BP 154/79
[2021-08-17] MEDS: PIPERACILLIN/TAZOBACTAM 3.375 GM in DEXTROSE 5% 50 ML IV SCH (05:08)
[2021-08-17] MEDS: BLOOD GLUCOSE MONITORING 1 DEV DEV FS SCH ×2 (06:32→12:09)
[2021-08-17] MEDS: INSULIN LISPRO SLIDING SCALE 100 UNITS/ML VIAL SUBQ PRN ×2 (06:33→12:12)
--- NOTE | 2021-08-17 06:42 | NUR ---
PATIENT IV SITE GOT INFILTRATED, IV ABX ZOSYN DID NOT FINISH INFUSING. 3 NURSES TRIED INSERTING NEW IV SITE BUT UNSUCCESSFUL. WILL ENDORSE TO MORNING SHIFT RN. MEDICATED WITH PRN PAIN MED MOTRIN FOR HEADACHE. WOUND DRESSING CHANGED AGAIN, WET GAUZE DRESSING APPLIED
[2021-08-17 07:06] LABS: ALBUMIN 2.3 g/dL (3.4-5.0); ANION GAP 10.8 (8-16); CARBON DIOXIDE 26.7 mmol/L (21-32); CREATININE 0.8 mg/dL (0.6-1.3); MAGNESIUM 1.7 mg/dL (1.8-2.4); POTASSIUM 3.5 mmol/L (3.5-5.1); TOTAL BILIRUBIN 0.3 mg/dL (0.0-1.0)
--- NOTE | 2021-08-17 07:22 | NUR ---
RECEIVED ENDORSEMENT FROM BOOKSTORE CLERK NURSE FOR CONTINUITY OF CARE. NO IV LINE WILL TRY LATER. PT AWAKE NO DISTRESS NOTED.
[2021-08-17 07:32] LABS: BASOPHILS % (AUTO) 0.6 % (0.0-2.0); EOSINOPHILS # (AUTO) 0.2 K/uL (0-0.4); EOSINOPHILS % (AUTO) 2.1 % (0.0-4.0); HEMATOCRIT 29.1 % (36-48); HEMOGLOBIN 9.7 g/dL (12.0-16.0); LYMPHOCYTES # (AUTO) 1.3 K/uL (2.5-16.5); LYMPHOCYTES % (AUTO) 16.1 % (20.5-51.1); MEAN CORPUSCULAR HEMOGLOBIN 28 pg (27-31); MEAN CORPUSCULAR HGB CONC 34 g/dL (33-37); MEAN CORPUSCULAR VOLUME 83.3 fL (80-94); MONOCYTES # (AUTO) 0.6 K/uL (0.8-1.0); NEUTROPHILS # (AUTO) 5.7 K/uL (1.8-7.7); NEUTROPHILS % (AUTO) 73.2 % (42.2-75.2); PLATELET COUNT (AUTO) 290 K/uL (140-450); RED BLOOD CELL COUNT(AUTO) 3.49 MIL/uL (4.20-5.40); WHITE BLOOD COUNT (AUTO) 7.8 K/uL (4.8-10.8)
[2021-08-17] MEDS: NACL 0.9% 1,000 ML IV SCH (07:40)
--- NOTE | 2021-08-17 08:17 | NUR ---
RECEIVED BEDSIDE REPORT FROM MILAGROS NGUYỄN FOR CONTINUITY OF CARE. PT IS STABLE. PLAN OF CARE DISCUSSED.
--- NOTE | 2021-08-17 08:44 | NUR ---
PATIENT COMPLAIN OF PAIN 01/17 OFFERED MOTRIN ORDER DUE TO NO IV LINE PATIENT SAID I WILL WAIT. I TRIED 2X TO INSERT IV LINE UNSUCCESSFUL. OFFERED AGAIN MOTRIN BUT SHE SAID SHE CAN WAIT.
[2021-08-17] MEDS: amLODIPine 5 MG TAB PO SCH (08:53)
[2021-08-17] MEDS: metFORMIN 500 MG TAB PO SCH (08:53)
[2021-08-17] MEDS: GABAPENTIN 300 MG CAP PO SCH ×2 (08:53→12:35)
--- NOTE | 2021-08-17 08:56 | NUR ---
GIVEN ORAL MEDICATION TOLERATED ELL. NO DISTRESS NOTED. CALL LIGHT WITH IN EASY REACH.
[2021-08-17 12:00] VITALS: BP 144/65
--- NOTE | 2021-08-17 12:37 | NUR ---
PATIENT COMPLAIN OF PAIN OFFERED MOTRIN BUT SHE SAID ITS NOT STRONG ENOUGH FOR HER PAIN. AGREED TO TAKE MOTRIN FOR NOW AND WILL INFORM MD IF SHE CAN GET STRONG ORAL MEDICATION.
--- NOTE | 2021-08-17 12:39 | NUR ---
INFORM DR. HARRIS IF WE CAN GET STRONGER ORAL MEDICATION PAIN MEDICATION. ALSO INFORM THAT IV ANTIBIOTIC UNABLE TO GIVE DUE TO NO IV ACCESS.
--- NOTE | 2021-08-17 13:30 | NUR ---
DR. HARRIS AT BED SIDE INFORM OF DISCHARGE. PT ON STABLE CONDITION.
[2021-08-17] MEDS ORDERED: IBUP-2213 PO (13:33)
[2021-08-17] MEDS ORDERED: AMOX-1230 PO (13:33)
--- NOTE | 2021-08-17 15:30 | NUR ---
PATIENT ALERT ORIENTED ON STABLE CONDITION. GIVEN DISCHARGE INSTRUCTION SIGNED AND VERBALIZED UNDERSTANDING. NAME BAND REMOVED. NO IV LINE. PATIENT TAKEN ALL BELONGINGS AND WHEELED TO [facility] PRIVATE CAR SAFELY.
== END 2021-08-17 15:30 | disposition home or self-care (01) | DRG 383 ==
LOC: MED 17:40 → MTU 21:13
PROVIDERS: ADMIT Internal Medicine; ATTEND Internal Medicine
PROC: 0JB80ZZ Excision of Abdomen Subcutaneous Tissue and Fascia, Open Approach (ICD-10-PCS; principal; 2021-08-16 19:00)
DX: L02.214 Cutaneous abscess of groin (principal); E44.1 Mild protein-calorie malnutrition; E87.1 Hypo-osmolality and hyponatremia; R51.9 Headache, unspecified; E11.65 Type 2 diabetes mellitus with hyperglycemia; Z20.822 Contact with and (suspected) exposure to COVID-19; I10 Essential (primary) hypertension; I77.6 Arteritis, unspecified; Z88.2 Allergy status to sulfonamides; Z88.8 Allergy status to other drugs, medicaments and biological substances; Z79.899 Other long term (current) drug therapy; Z68.32 Body mass index [BMI] 32.0-32.9, adult
CPT/HCPCS: 36415; 70450; 76856; 80053; 81025; 82009; 82948; 83036; 83735; 85025; 87070; 87075; 87081; 87205; 88304; 96361; 96372; 96374; 96375; 99285; J1100; J1200; J1815; J1885; J2001; J2250; J2270; J2405; J2543; J2704; J2765; J3010; J3490; J7030; J7060; Q0092

== ENCOUNTER 2021-12-19 15:58 | Inpatient (IN) | payer OTHER ==
[~2021-12-19] VITALS: Ht 165.1 cm; Wt 89.4 kg
[~2021-12-19 15:58] MED LIST changes: +AMOX-1230 PO; -ASPI-1749 PO; -BUS5 PO; -CANN100S INH; -CARV12.5 PO; -FURO-570 PO; +IBUP-2213 PO; +METF-1253 PO; -METF-350 PO; -OMEP40EC24 PO; -ONDA-190 PO; -PHE25S PO; -VENL150C1 PO; -[UNRECOGNIZED DRUG - CODE] OP
[2021-12-19 16:12] VITALS: BP 147/92
--- NOTE | 2021-12-19 16:18 | NUR ---
Kelsea presley in [facility] - 12/19/21 at 1627 by MED1 ESTEBAN
--- NOTE | 2021-12-19 16:27 | NUR ---
PT AMB TO BED 6.
--- NOTE | 2021-12-19 16:41 | NUR ---
46 Y/O F BIB SELF C/O LEFT EYE NUMBNESS AND PAIN 8/10 STARTED 2 DAYS AGO. PER NE THE PAIN RADIATES TO HER HEAD/FACE PAIN X 2 DAYS.BP 210/110 AT THIS TIME. 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
[2021-12-19] MEDS ORDERED: TETRACAINE HCL/PF 0.5% OPTH 4 ML BTL OP ONE (17:35)
[2021-12-19] MEDS ORDERED: FLUORESCEIN OPTH STRIP 1 MG ONE (17:39)
[2021-12-19] MEDS ORDERED: FLUORESCEIN OPTH STRIP 1 MG OP ONE (17:40)
--- NOTE | 2021-12-19 17:40 | NUR ---
LAB AT BEDSIDE.
[2021-12-19] MEDS ORDERED: TOMOMETER 1 DEV DEV MC ONE (17:42)
--- NOTE | 2021-12-19 17:58 | NUR ---
PT TO CT BY WHEELCHAIR.
[2021-12-19 18:25] LABS: BASOPHILS % (AUTO) 0.6 % (0.0-2.0); EOSINOPHILS # (AUTO) 0.1 K/uL (0-0.4); EOSINOPHILS % (AUTO) 1.6 % (0.0-4.0); HEMATOCRIT 36.3 % (36-48); HEMOGLOBIN 12.2 g/dL (12.0-16.0); LYMPHOCYTES # (AUTO) 1.2 K/uL (2.5-16.5); LYMPHOCYTES % (AUTO) 13.9 % (20.5-51.1); MEAN CORPUSCULAR HEMOGLOBIN 29 pg (27-31); MEAN CORPUSCULAR HGB CONC 34 g/dL (33-37); MEAN CORPUSCULAR VOLUME 85.4 fL (80-94); MONOCYTES # (AUTO) 0.7 K/uL (0.8-1.0); MONOCYTES % (AUTO) 7.8 % (1.7-9.3); NEUTROPHILS # (AUTO) 6.4 K/uL (1.8-7.7); NEUTROPHILS % (AUTO) 76.1 % (42.2-75.2); PLATELET COUNT (AUTO) 327 K/uL (140-450); RED BLOOD CELL COUNT(AUTO) 4.25 MIL/uL (4.20-5.40); RED CELL DISTRIBUTION WIDTH 13.4 % (11.6-13.7); WHITE BLOOD COUNT (AUTO) 8.4 K/uL (4.8-10.8)
[2021-12-19 18:48] LABS: ALBUMIN 3.4 g/dL (3.4-5.0); ANION GAP 11.2 (8-16); ASPARTATE AMINOTRANSFERASE 18 U/L (15-37); CARBON DIOXIDE 28.5 mmol/L (21-32); CHLORIDE 100 mmol/L (98-107); CREATININE 1.1 mg/dL (0.6-1.3); GFR ARICAN-AMERICAN 69 mL/min (>90); GLUCOSE 327 mg/dL (74-106); POTASSIUM 4.7 mmol/L (3.5-5.1); SODIUM SERUM 135 mmol/L (136-145); TOTAL BILIRUBIN 0.3 mg/dL (0.0-1.0); UREA NITROGEN, BLOOD 19 mg/dL (7-18)
[2021-12-19] MEDS ORDERED: METOPROLOL 25 MG TAB PO ONE (19:00)
[2021-12-19] MEDS ORDERED: ASPIRIN 325 MG TAB PO ONE (19:00)
[2021-12-19] MEDS ORDERED: METOPROLOL 5 MG/5 ML VIAL IVP ONE (19:00)
[2021-12-19] MEDS ORDERED: LABETALOL 250 MG in DEXTROSE 5% 200 ML IV SCH (19:00)
[2021-12-19] MEDS ORDERED: NITR50CA1 PO (19:09)
[2021-12-19] MEDS ORDERED: [UNRECOGNIZED DRUG - CODE] IV (19:09)
[2021-12-19] MEDS ORDERED: AMLO10TA PO (19:14)
[2021-12-19] MEDS ORDERED: TOBDEXOS LEFT EYE (19:14)
[2021-12-19] MEDS ORDERED: FURO-570 PO (19:14)
[2021-12-19] MEDS ORDERED: CARV25TA PO (19:14)
[2021-12-19] MEDS ORDERED: OMEP20EC11 PO (19:14)
[2021-12-19] MEDS ORDERED: [UNRECOGNIZED DRUG - CODE] MC (19:14)
--- NOTE | 2021-12-19 19:26 | NUR ---
GAVE REPORT TO ARAI CHÁVZE.
--- NOTE | 2021-12-19 19:29 | NUR ---
per raegan schilling not to admin lopressor orders, only asa and labetalol.
--- NOTE | 2021-12-19 19:37 | NUR ---
insufficient labetalol availability in er. live in housekeeper nanny called, awaiting response. raegan made aware.
--- NOTE | 2021-12-19 19:44 | NUR ---
PT SITTING IN BED LOCKED IN LOWEST POSITION W X1 SIDERAIL UP. PT REPORTS ONGOING L EYE PAIN AND HEADACHE 7/10, ONGOING BLURRY VISION TO L EYE PERIPHERAL VIEW "I SEE RED ON MY LEFT EYE PERIPHERAL VISION." DENIES ANY DIZZYNESS, NAUSEA OR OTHER SYMPTOMS. PT BP 198/81, AWAITING LABETALOL DRIP.
[2021-12-19] MEDS ORDERED: LABETALOL 20 MG/4 ML VIAL IVP ONE ×5 (19:50→20:02)
[2021-12-19] MEDS ORDERED: LABETALOL 100 MG/20 ML VIAL ONE (20:06)
[2021-12-19] MEDS ORDERED: ESMOLOL 100 MG/10 ML VIAL IV ONE (20:10)
[2021-12-19] MEDS ORDERED: MORPHINE SULFATE 4 MG/ML SYR IVP ONE (21:00)
--- NOTE | 2021-12-19 22:14 | NUR ---
PT reports feeling slightly better, headache improvement, no new changes in vision. no other symptoms. will continue to monitor.
[2021-12-19] MEDS ORDERED: POTASSIUM CHLORIDE 10 MEQ TABER PO PRN (22:15)
[2021-12-19] MEDS ORDERED: ACETAMINOPHEN 325 MG TAB PO PRN (22:15)
[2021-12-19] MEDS ORDERED: KCL 20 MEQ/WATER INJ PREMIX 200 ML IV PRN (22:15)
[2021-12-19] MEDS ORDERED: MAGNESIUM OXIDE 400 MG TAB PO PRN (22:15)
[2021-12-19] MEDS ORDERED: MAG SULF 2000 MG/WATER PREMIX 50 ML IV PRN (22:15)
[2021-12-19] MEDS ORDERED: DEXTROSE 50% 50 ML SYR IVP PRN (22:40)
--- NOTE | 2021-12-19 23:10 | NUR ---
pt labetalol almost complete, insuffiecient labetalol to continue drip. charge nurse aware, warehouse forklift operator aware. per warehouse forklift operator will call [facility] and reach back to ER if able to obtain labetalol.
--- NOTE | 2021-12-19 23:53 | NUR ---
per charge geovani unable to obtain labetalol from [facility], pharmacy. admitting zohaib paged. awaiting call back.
[2021-12-20] VITALS (7 sets, daily range): BP systolic 130–160; BP diastolic 61–89
--- NOTE | 2021-12-20 00:03 | NUR ---
per md penny labetalol drip can be discontinued at this time. New order for hydralizine ivp q4h for >sbp 150, + to contact md penny if pt bp does not response to hydralizine.
--- NOTE | 2021-12-20 00:05 | NUR ---
pt ambulatory to bathroom w steady gait.
[2021-12-20] MEDS ORDERED: hydrALAZINE 10 MG TAB PO PRN (00:10)
[2021-12-20] MEDS ORDERED: hydrALAZINE 20 MG/ML VIAL IVP PRN (00:20)
--- NOTE | 2021-12-20 01:00 | NUR ---
pt reports headache and l eye pain about 5/10, no new symptoms. will continue to monitor.
[2021-12-20] MEDS: MORPHINE SULFATE 4 MG/ML SYR IVP PRN ×2 (01:42→22:15)
--- NOTE | 2021-12-20 01:43 | NUR ---
pt reported 7/10 headache and L eye pain, no changes in vision no worsening or improvement. no other hnew symptoms. pt medicated for pain. vs w/in normal limits, will continue to monitor.
--- NOTE | 2021-12-20 03:22 | NUR ---
pt resting w eyes closed in R lateral position w breathing even and unlabored. will continue to monitor.
--- NOTE | 2021-12-20 05:13 | NUR ---
pt ambulatory to bathroom w steady gait. pt reports headache and l eye pain5/10 does not want pain meds. no changes in vision status. will continue to monitor.
[2021-12-20] MEDS: HYDROcodone/APAP 5/325 MG 1 TAB TAB PO PRN ×2 (06:46→18:51)
--- NOTE | 2021-12-20 06:46 | NUR ---
pt reporting wanting something for headache and L eye pain 5/10, no other symptoms. no changes in vision status. pt medicated for pain. will continue to monitor.
--- NOTE | 2021-12-20 07:22 | NUR ---
Pt report given to bree bhatia. Transfer of care at this time.
--- NOTE | 2021-12-20 07:29 | NUR ---
Report received from KYLER Sewell for transfer of care.
[2021-12-20] MEDS: BLOOD GLUCOSE MONITORING 1 DEV DEV FS SCH ×4 (07:41→21:28)
[2021-12-20 07:47] LABS: BASOPHILS # (AUTO) 0.1 K/uL (0.00-0.22); BASOPHILS % (AUTO) 0.5 % (0.0-2.0); EOSINOPHILS # (AUTO) 0.2 K/uL (0-0.4); EOSINOPHILS % (AUTO) 1.7 % (0.0-4.0); HEMOGLOBIN 11.3 g/dL (12.0-16.0); LYMPHOCYTES # (AUTO) 1.9 K/uL (2.5-16.5); LYMPHOCYTES % (AUTO) 20.2 % (20.5-51.1); MEAN CORPUSCULAR HEMOGLOBIN 28 pg (27-31); MEAN CORPUSCULAR HGB CONC 33 g/dL (33-37); MEAN CORPUSCULAR VOLUME 84.4 fL (80-94); MONOCYTES # (AUTO) 0.8 K/uL (0.8-1.0); MONOCYTES % (AUTO) 8.8 % (1.7-9.3); NEUTROPHILS # (AUTO) 6.4 K/uL (1.8-7.7); NEUTROPHILS % (AUTO) 68.8 % (42.2-75.2); PLATELET COUNT (AUTO) 328 K/uL (140-450); RED BLOOD CELL COUNT(AUTO) 4.03 MIL/uL (4.20-5.40); RED CELL DISTRIBUTION WIDTH 13.2 % (11.6-13.7); WHITE BLOOD COUNT (AUTO) 9.3 K/uL (4.8-10.8)
[2021-12-20] MEDS: INSULIN LISPRO SLIDING SCALE 100 UNITS/ML VIAL SUBQ PRN ×4 (07:54→21:35)
--- NOTE | 2021-12-20 08:01 | NUR ---
Patient was handed her breakfast tray. Patient was encouraged to eat breakfast.
[2021-12-20 08:06] LABS: CREATININE 1.2 mg/dL (0.6-1.3); MAGNESIUM 1.7 mg/dL (1.8-2.4); TOTAL BILIRUBIN 0.5 mg/dL (0.0-1.0)
--- NOTE | 2021-12-20 08:53 | NUR ---
Patient will be admitted to care of Dr. Mejia. Admited to ICU. Will go to room Bed 7. Belongings list completed. Report to Martha KYLER.
[2021-12-20] MEDS ORDERED: amLODIPine 5 MG TAB PO SCH (09:00)
--- NOTE | 2021-12-20 09:15 | NUR ---
RECEIVED PATIENT FROM ED. OBTAINED REPORT HANDOFF FROM ED RN. PATIENT STABLE.
[2021-12-20] MEDS: FUROSEMIDE 40 MG TAB PO SCH (09:58)
[2021-12-20] MEDS: GABAPENTIN 300 MG CAP PO SCH ×3 (09:58→16:57)
[2021-12-20] MEDS: carvediloL 12.5 MG TAB PO SCH ×2 (09:58→21:27)
[2021-12-20] MEDS: INSULIN LANTUS 100 UNITS/ML 10 ML VIAL SUBQ SCH (10:00)
--- NOTE | 2021-12-20 10:00 | NUR ---
PATIENT AWAKE AND ALERT. MOVES ALL EXTREMITIES. ORIENTED X 4. FOLLOWS COMMANDS AND ANSWERS QUESTIONS APPROPRIATELY. STATES SHE IS BLIND IN RIGHT EYE. PUPIL NOT REACTIVE. LEFT PUPIL WITH "WAVY LINES" IN VISUAL FIELD. PUPIL 3MM AND REACTIVE. HEART SOUNDS REGULAR. MONITOR SR. #20G SALINE LOCK IN RIGHT AC. POSTERIOR LUNG SOUNDS CLEAR. ON RA WITH SAO2 98%. ACTIVE BOWEL SOUNDS IN ALL QUAD. ABDOMEN SOFT. DENIES NAUSEA. URINE CLEAR YELLOW PER [facility]. BUILDING ENGINEER HERE TO COMPLETE ECHO.
--- NOTE | 2021-12-20 10:30 | NUR ---
DR. WARNER HERE TO SEE AND ORDERS RECEIVED.
[2021-12-20] MEDS: NIFEdipine 30 MG TABER PO SCH (10:31)
--- NOTE | 2021-12-20 10:41 | NUR ---
The patient's care was reviewed and supervised by Agency [facility] ED, RN.
--- NOTE | 2021-12-20 11:47 | NUR ---
DC PLANNIN YRS OLD FEMALE PATIENT WAS ADMITTED FROM HOME WITH A DX OF MALIGNANT HTN. PATIENT HAS A HX OF HTN, CENTRAL NERVOUS SYSTEM VASCULITIS, AND OBESITY. BP ON ADMISSION 203/103. ADMINISTERED IV LABETALOL, AND HYDRALAZINE BP DOWN TO 156/73 . ADMITTED TO ICU FOR CLOSE MONITORING. CT HEAD SHOWED NO EVIDENCE OF INTRACRANIAL HEMORRHAGE . RAPID COVID TEST NEGATIVE. CONSULTED WITH CRITICAL CARE PULMO . DC PLAN TO DOWN GRADE TO TELE WHEN STABLE. CM TO FOLLOW.
--- NOTE | 2021-12-20 12:05 | NUR ---
PATIENT HAS BEEN SCREENED AND CATEGORIZED HIGH NUTRITION RISK. PATIENT WILL BE SEEN WITHIN 1-2 DAYS OF ADMISSION. / RECEIVED REFERRAL FOR UNINTENTIONAL WEIGHT LOSS JOEL LYNN RD
--- NOTE | 2021-12-20 13:31 | NUR ---
12/20/21 RD INITIAL ASSESSMENT COMPLETED PLEASE REFER TO NUTRITION ASSESSMENT UNDER CARE ACTIVITY FOR ESTIMATED NUTRITIONAL NEEDS. 1. CONTINUE CONSISTENT CARB DIET TOLERATED -MONITOR PO INTAKE AND GI SYMPTOMS 2. RECOMMEND GLUCERNA BID FOR NUTRITION SUPPORT -MONITOR BLOOD GLUCOSE LEVELS 3. PROVIDED NUTRITION EDUCATION FOR DIABETES AND CARB COUNTING WITH HANDOUTS 4. RD TO FOLLOW-UP 3-5 DAYS, MODERATE RISK JOEL LYNN RD
[2021-12-20] MEDS: ONDANSETRON 4 MG/2 ML VIAL IVP PRN (13:40)
--- NOTE | 2021-12-20 13:45 | NUR ---
PATIENT STATED SHE IS NAUSEATED. ZOFRAN 4MG IV GIVEN. NO OTHER COMPLAINTS.
--- NOTE | 2021-12-20 17:45 | NUR ---
DR MALCOLM HERE TO SEE PATIENT. NO NEW ORDERS. REPORT CALLED TO KYLER GIL.
--- NOTE | 2021-12-20 18:00 | NUR ---
REPORT RECEIVED BY FIRE EXTINGUISHER SPRINKLER INSPECTOR. AWAITING TRANSFER TO [facility].
--- NOTE | 2021-12-20 18:40 | NUR ---
TRANSFERRED PATIENT TO [facility]. CALL LIGHT IN REACH. PATIENT STABLE.
--- NOTE | 2021-12-20 18:44 | NUR ---
RECEIVED PT ON THE UNIT. PT A/O X4. ABLE TO MAKE NEEDS KNOWN. NO SOB OR RESPIRATORY DISTRESS. ON RA. CCHO DIET. C/O HEADACHE. 12/17 PRESSURED PAIN. RAC #20 SL. NEEDS ALL MET. PT STABLE. ORIENTED PT TO ROOM. SAFETY MEASURES IN PLACE. WILL ENDORSE PLAN OF CARE TO NIGHTSHIFT RN FOR CONTINUITY OF CARE.
--- NOTE | 2021-12-20 18:50 | NUR ---
PRN NORCO GIVEN. SEE PAIN ASSESSMENT.
--- NOTE | 2021-12-20 19:19 | NUR ---
REPORT GIVEN TO NIGHTSNYFT ELZBIETA CHÁVEZ FOR CONTINUITY OF CARE.
[2021-12-21 00:25] VITALS: BP 138/62
[2021-12-21 04:12] VITALS: BP 158/78
[2021-12-21 05:58] LABS: BASOPHILS % (AUTO) 0.5 % (0.0-2.0); EOSINOPHILS # (AUTO) 0.2 K/uL (0-0.4); EOSINOPHILS % (AUTO) 2.1 % (0.0-4.0); HEMATOCRIT 32.5 % (36-48); HEMOGLOBIN 10.7 g/dL (12.0-16.0); LYMPHOCYTES # (AUTO) 1.3 K/uL (2.5-16.5); LYMPHOCYTES % (AUTO) 14.6 % (20.5-51.1); MEAN CORPUSCULAR HEMOGLOBIN 28 pg (27-31); MEAN CORPUSCULAR HGB CONC 33 g/dL (33-37); MEAN CORPUSCULAR VOLUME 84.5 fL (80-94); MONOCYTES % (AUTO) 11.3 % (1.7-9.3); NEUTROPHILS # (AUTO) 6.4 K/uL (1.8-7.7); NEUTROPHILS % (AUTO) 71.5 % (42.2-75.2); PLATELET COUNT (AUTO) 311 K/uL (140-450); RED BLOOD CELL COUNT(AUTO) 3.85 MIL/uL (4.20-5.40); RED CELL DISTRIBUTION WIDTH 13.5 % (11.6-13.7)
[2021-12-21 06:29] LABS: ALBUMIN 2.8 g/dL (3.4-5.0); ANION GAP 9.2 (8-16); CARBON DIOXIDE 29.9 mmol/L (21-32); CREATININE 1.2 mg/dL (0.6-1.3); MAGNESIUM 1.8 mg/dL (1.8-2.4); POTASSIUM 4.1 mmol/L (3.5-5.1); TOTAL BILIRUBIN 0.4 mg/dL (0.0-1.0)
--- NOTE | 2021-12-21 07:05 | NUR ---
RECEIVED REPORT FROM CLINICAL ASSISTANT NURSE: PT RECEIVED ASLEEP IN BED BUT EASILY AROUSED--ALERT WHEN AROUSED. PT BREATHING EFFORTLESSLY ON ROOM AIR. IV ACCESS AT RIGHT ANTECUBITAL (SALINE LOCK). CALL LIGHT WITHIN REACH OF PT.
[2021-12-21] MEDS: BLOOD GLUCOSE MONITORING 1 DEV DEV FS SCH ×4 (07:30→20:54)
[2021-12-21 08:00] VITALS: BP 145/72
[2021-12-21] MEDS: NIFEdipine 30 MG TABER PO SCH (08:35)
[2021-12-21] MEDS: carvediloL 12.5 MG TAB PO SCH ×2 (08:37→20:45)
[2021-12-21] MEDS: FUROSEMIDE 40 MG TAB PO SCH (08:37)
[2021-12-21] MEDS: GABAPENTIN 300 MG CAP PO SCH ×3 (08:38→17:15)
[2021-12-21] MEDS: INSULIN LANTUS 100 UNITS/ML 10 ML VIAL SUBQ SCH ×2 (08:58→20:52)
[2021-12-21] MEDS: INSULIN LISPRO SLIDING SCALE 100 UNITS/ML VIAL SUBQ PRN ×4 (09:01→20:52)
[2021-12-21] MEDS: MORPHINE SULFATE 4 MG/ML SYR IVP PRN ×3 (09:12→22:41)
--- NOTE | 2021-12-21 09:14 | NUR ---
PATIENT REPORTED HEADACHE, RATING PAIN 7/10, MORPHINE ADMIN IV ORDERED.
--- NOTE | 2021-12-21 10:10 | NUR ---
ASLEEP AND SHOWING NO SIGNS OF PAIN.
--- NOTE | 2021-12-21 11:15 | NUR ---
PATIENT AWAKE AND VERBALIZES COMFORT. ALL AM MEDS PREVIOUSLY ADMINISTERED. PATIENT UP TO BATHROOM WITH MINIMAL ASSIST.
[2021-12-21 12:00] VITALS: BP 145/72
[2021-12-21] MEDS: TOBRAMYCIN LEFT EYE SCH ×3 (12:29→20:54)
[2021-12-21] MEDS: [UNRECOGNIZED DRUG - OTHER] LEFT EYE SCH ×3 (12:29→20:54)
--- NOTE | 2021-12-21 13:00 | NUR ---
PATIENT VERBALIZES ABSENCE OF HEADACHE.
[2021-12-21 16:00] VITALS: BP 139/67
--- NOTE | 2021-12-21 17:20 | NUR ---
PATIENT'S BLOOD GLUCOSE LEVEL 388 WITH LAST CHECK, SHOWING INCREASE EACH TIME IT IS CHECKED. HUMALOG INSULIN CONTINUES TO BE ADMIN ORDERED AND DOCUMENTED.
--- NOTE | 2021-12-21 18:30 | NUR ---
PATIENT AGAIN REPORTED HEADACHE OF 7/10. MORPHINE ADMIN ORDERED.
--- NOTE | 2021-12-21 19:30 | NUR ---
PATIENT REPORTED PAIN RELIEF. BREATHING EFFORTLESSLY ON ROOM AIR. CALL LIGHT IS WITHIN REACH. REPORT GIVEN TO NIGHT NURSEXU.
--- NOTE | 2021-12-21 19:35 | NUR ---
RECEIVED PT ON BED, AAOX4, ABLE TO MAKE NEEDS KNOWN, RELIEF FROM LEFT EYE PAIN AND HEADACHE OBTAINED AFTER MORPHINE IVP WAS GIVEN BY DAY SHIFT NURSE, PLAN OF CARE DISCUSSED, SAFETY MEASURES IN PLACE, CALL LIGHT WITHIN REACH.
[2021-12-21 20:00] VITALS: BP 142/71
[2021-12-22] VITALS: BP 126/68
[2021-12-22 04:00] VITALS: BP 145/67
[2021-12-22] MEDS: MORPHINE SULFATE 4 MG/ML SYR IVP PRN ×3 (04:12→22:24)
[2021-12-22 06:34] LABS: ALBUMIN 2.6 g/dL (3.4-5.0); ANION GAP 9.5 (8-16); CARBON DIOXIDE 29.5 mmol/L (21-32); CREATININE 1.2 mg/dL (0.6-1.3); MAGNESIUM 1.7 mg/dL (1.8-2.4); TOTAL BILIRUBIN 0.3 mg/dL (0.0-1.0)
[2021-12-22] MEDS: BLOOD GLUCOSE MONITORING 1 DEV DEV FS SCH ×4 (06:43→21:51)
[2021-12-22] MEDS: INSULIN LISPRO SLIDING SCALE 100 UNITS/ML VIAL SUBQ PRN ×4 (06:43→22:12)
[2021-12-22 06:50] LABS: BASOPHILS # (AUTO) 0.1 K/uL (0.00-0.22); BASOPHILS % (AUTO) 0.7 % (0.0-2.0); EOSINOPHILS # (AUTO) 0.2 K/uL (0-0.4); EOSINOPHILS % (AUTO) 3.1 % (0.0-4.0); HEMATOCRIT 30.6 % (36-48); HEMOGLOBIN 10.2 g/dL (12.0-16.0); LYMPHOCYTES # (AUTO) 1.8 K/uL (2.5-16.5); LYMPHOCYTES % (AUTO) 22.7 % (20.5-51.1); MEAN CORPUSCULAR HEMOGLOBIN 29 pg (27-31); MEAN CORPUSCULAR HGB CONC 33 g/dL (33-37); MEAN CORPUSCULAR VOLUME 85.1 fL (80-94); MONOCYTES % (AUTO) 12.9 % (1.7-9.3); NEUTROPHILS # (AUTO) 4.7 K/uL (1.8-7.7); NEUTROPHILS % (AUTO) 60.6 % (42.2-75.2); PLATELET COUNT (AUTO) 289 K/uL (140-450); RED CELL DISTRIBUTION WIDTH 13.1 % (11.6-13.7); WHITE BLOOD COUNT (AUTO) 7.8 K/uL (4.8-10.8)
--- NOTE | 2021-12-22 07:08 | NUR ---
RECEIVED REPORT FROM ARBOR PRESS OPERATOR NURSE FOR CONTINUITY OF CARE. PATIENT ASLEEP NO DISTRESS NOTED. RESPIRATION EVEN AND NOT LABORED NO SHORTNESS OF BREATH. IV SITE ON RIGHT AC LINDY 20 SALINE LOCK CALL LIGHT WITH IN EASY REACH.
[2021-12-22 08:00] VITALS: BP 132/59
--- NOTE | 2021-12-22 09:40 | NUR ---
PATIENT IS COMPLAIN THAT HER VISION IS GETTING WORST AND REQUEST TO BE TRANSFER TO [place] . DR. MALCOLM AT STATION INFORM OF PATIENT CONCERN HE SAID HE WILL TALK TO HER.
--- NOTE | 2021-12-22 09:46 | NUR ---
DR. MALCOLM AT BED SIDE TALKING TO PATIENT.
[2021-12-22] MEDS: GABAPENTIN 300 MG CAP PO SCH ×3 (09:58→17:54)
[2021-12-22] MEDS: NIFEdipine 30 MG TABER PO SCH (09:59)
[2021-12-22] MEDS: carvediloL 12.5 MG TAB PO SCH ×2 (10:00→21:52)
[2021-12-22] MEDS: FUROSEMIDE 40 MG TAB PO SCH (10:00)
[2021-12-22] MEDS: [UNRECOGNIZED DRUG - OTHER] LEFT EYE SCH ×4 (10:03→21:52)
[2021-12-22] MEDS: TOBRAMYCIN LEFT EYE SCH ×4 (10:03→21:52)
[2021-12-22] MEDS: INSULIN LANTUS 100 UNITS/ML 10 ML VIAL SUBQ SCH ×2 (10:07→22:15)
--- NOTE | 2021-12-22 10:13 | NUR ---
GIVEN ALL HER MEDICATION PATIENT COMPLAIN OF EYE PAIN 7/10.
[2021-12-22] MEDS: HYDROcodone/APAP 5/325 MG 1 TAB TAB PO PRN (10:15)
[2021-12-22 12:00] VITALS: BP 168/81
--- NOTE | 2021-12-22 12:23 | NUR ---
PATIENT COMPLAIN OF PAIN 10/10 RN GAVE IVP MORPHINE.
[2021-12-22] MEDS: ONDANSETRON 4 MG/2 ML VIAL IVP PRN (14:02)
--- NOTE | 2021-12-22 14:03 | NUR ---
PATIENT COMPLAIN OF NAUSEA RN GAVE ZOFRAN IV PUSH.
[2021-12-22 16:00] VITALS: BP 110/64
--- NOTE | 2021-12-22 16:00 | NUR ---
PATIENT ON BED ASLEEP NO DISTRESS NOTED.
--- NOTE | 2021-12-22 17:00 | NUR ---
BLOOD SUGAR CHECKED TOLERATED WELL AND GIVEN MEDICATION.
--- NOTE | 2021-12-22 18:32 | NUR ---
DR. RODAS AT BED SIDE. INFORM DR. MALCOLM OF ECO READING.
--- NOTE | 2021-12-22 18:37 | NUR ---
DR. MALCOLM ASK TO ASK THE PATIENT WHEN SHE WANT TO GO HOME TODAY OR TOMORROW AND SHE SAID TOMORROW DR. MALCOLM AWARE.
--- NOTE | 2021-12-22 19:29 | NUR ---
GAVE REPORT TO LICENSING SERVICES CLERK NURSE FOR CONTINUITY CARE.
--- NOTE | 2021-12-22 19:45 | NUR ---
GET THE REPORT FROM MORNING NURSE , PATIENT IS LYING ON BED,PATIENT IS ALERT ORIENTED X4 ,CALL LIGHT IS WITHIN THE REACH, WILL CONTINUE TO MONITOR PATIENT.
[2021-12-22 20:00] VITALS: BP 141/73
--- NOTE | 2021-12-22 22:19 | NUR ---
PATIENT IS LYING ON BED, NO ANY COMPLAIN OF SHORTNESS OF BREATH AT THIS TIME, VITAL SIGN IS WITHIN THE NORMAL RANGE, ALL SCHEDULE MEDICATION IS GIVEN PER DOCTOR ORDER, PATIENT BLOOD SUGAR IS 357, 10 UNIT INSULIN IS GIVEN PER DOCTOR ORDER, CALL LIGHT IS WITHIN THE REACH, WILL CONTINUE TO MONITOR PATIENT.
--- NOTE | 2021-12-22 22:30 | NUR ---
PATIENT IS COMPLAINING OF PAIN IN LEFT SIDE HEAD 02/17, MORPHINE 4 MG IV PRN IS GIVEN PER DOCTOR ORDER, VITAL SIGN IS WITHIN THE NORMAL RANGE, WILL REASSESS PAIN LAVAL IN HOUR, CALL LIGHT IS WITHIN THE REACH, WILL CONTINUE TO MONITOR PATIENT.
[2021-12-23] VITALS: BP 123/60
--- NOTE | 2021-12-23 00:29 | NUR ---
PATIENT IS LYING ON BED,VITAL SIGN IS WITHIN THE NORMAL RANGE, NO ANY COMPLAIN OF PAIN OR SHORTNESS OF BREATH AT THIS TIME, CALL LIGHT IS WITHIN THE REACH, WILL CONTINUE TO MONITOR PATIENT.
[2021-12-23] MEDS: ONDANSETRON 4 MG/2 ML VIAL IVP PRN (03:52)
--- NOTE | 2021-12-23 03:52 | NUR ---
PATIENT IS COMPLAINING OF NAUSEA , ZOFRAN 4MG IV PRN IS GIVEN PER DOCTOR ORDER, CALL LIGHT IS WITHIN THE REACH, WILL CONTINUE TO MONITOR PATIENT.
[2021-12-23 04:00] VITALS: BP 134/56
--- NOTE | 2021-12-23 04:27 | NUR ---
VITAL SIGN IS WITHIN THE NORMAL RANGE, CALL LIGHT IS WITHIN THE REACH, WILL CONTINUE TO MONITOR PATIENT.
[2021-12-23] MEDS: MORPHINE SULFATE 4 MG/ML SYR IVP PRN (05:56)
[2021-12-23] MEDS: BLOOD GLUCOSE MONITORING 1 DEV DEV FS SCH (06:35)
[2021-12-23] MEDS: INSULIN LISPRO SLIDING SCALE 100 UNITS/ML VIAL SUBQ PRN (06:39)
--- NOTE | 2021-12-23 06:41 | NUR ---
PATIENT BLOOD SUGAR IS 3290, 6 UNIT INSULIN IS GIVEN PER DOCTOR ORDER, CALL LIGHT IS WITHIN THE REACH, WILL CONTINUE TO MONITOR PATIENT.
[2021-12-23 07:12] LABS: ALBUMIN 2.9 g/dL (3.4-5.0); ANION GAP 12.7 (8-16); CARBON DIOXIDE 27.5 mmol/L (21-32); CREATININE 1.1 mg/dL (0.6-1.3); MAGNESIUM 1.9 mg/dL (1.8-2.4); POTASSIUM 4.2 mmol/L (3.5-5.1); TOTAL BILIRUBIN 0.2 mg/dL (0.0-1.0)
--- NOTE | 2021-12-23 07:13 | NUR ---
GAVE THE REPORT TO MORNING NURSE GOPI FOR CONTINUOS OF CARE, PATIENT IS STABLE.
[2021-12-23 07:15] LABS: BASOPHILS % (AUTO) 0.7 % (0.0-2.0); EOSINOPHILS # (AUTO) 0.2 K/uL (0-0.4); EOSINOPHILS % (AUTO) 3.4 % (0.0-4.0); HEMATOCRIT 34.3 % (36-48); HEMOGLOBIN 11.5 g/dL (12.0-16.0); LYMPHOCYTES # (AUTO) 1.5 K/uL (2.5-16.5); LYMPHOCYTES % (AUTO) 21.6 % (20.5-51.1); MEAN CORPUSCULAR HEMOGLOBIN 28 pg (27-31); MEAN CORPUSCULAR HGB CONC 33 g/dL (33-37); MEAN CORPUSCULAR VOLUME 84.4 fL (80-94); MONOCYTES # (AUTO) 0.7 K/uL (0.8-1.0); MONOCYTES % (AUTO) 9.5 % (1.7-9.3); NEUTROPHILS # (AUTO) 4.5 K/uL (1.8-7.7); NEUTROPHILS % (AUTO) 64.8 % (42.2-75.2); PLATELET COUNT (AUTO) 353 K/uL (140-450); RED BLOOD CELL COUNT(AUTO) 4.07 MIL/uL (4.20-5.40); RED CELL DISTRIBUTION WIDTH 13.3 % (11.6-13.7)
--- NOTE | 2021-12-23 07:16 | NUR ---
RECEIVED REPORT FROM FINGER WAVER NURSE FOR CONTINUITY OF CARE. PATIENT ASLEEP NO DISTRESS NOTED. RESPIRATION EVEN AND NOT LABORED NO SHORTNESS OF BREATH. IV SITE ON RIGHT AC LINDY 20. ALL SAFETY MEASURE IN PLACE.
[2021-12-23 08:00] VITALS: BP 157/68
--- NOTE | 2021-12-23 08:01 | NUR ---
Patient's Plan of Care was discussed and reviewed with SIDEROGRAPHER: GOPI
[2021-12-23] MEDS: GABAPENTIN 300 MG CAP PO SCH (09:07)
[2021-12-23] MEDS: NIFEdipine 30 MG TABER PO SCH (09:07)
[2021-12-23] MEDS: carvediloL 12.5 MG TAB PO SCH (09:08)
[2021-12-23] MEDS: FUROSEMIDE 40 MG TAB PO SCH (09:08)
[2021-12-23] MEDS: TOBRAMYCIN LEFT EYE SCH (09:09)
[2021-12-23] MEDS: [UNRECOGNIZED DRUG - OTHER] LEFT EYE SCH (09:09)
[2021-12-23] MEDS: INSULIN LANTUS 100 UNITS/ML 10 ML VIAL SUBQ SCH (09:11)
[2021-12-23] MEDS ORDERED: NIFE30TA36 PO (09:12)
--- NOTE | 2021-12-23 09:19 | NUR ---
PATIENT ALERT NO DISTRESS NOTED GIVEN ALL DUE MEDICATION TOLERATED WELL.
--- NOTE | 2021-12-23 09:22 | NUR ---
INFORM PATIENT FOR DISCHARGE ORDER IN PLACE AND SHE AGREED.
[2021-12-23 09:37] VITALS: BP 157/68
[2021-12-23] MEDS: HYDROcodone/APAP 5/325 MG 1 TAB TAB PO PRN (09:58)
[2021-12-23] MEDS ORDERED: ACET-9525 PO (10:00)
--- NOTE | 2021-12-23 10:47 | NUR ---
PATIENT ALERT AND ORIENTED GIVEN DISCHARGE PACKET WITH INSTRUCTION VERBALIZED UNDERSTANDING. WAITING FOR RIDE.
--- NOTE | 2021-12-23 11:30 | NUR ---
PATIENT ALERT ABLE TO MAKE NEEDS KNOWN RESPIRATION EVEN AND NOT LABORED NO SHORTNESS OF BREATH. PATIENT IV REMOVED AND NAME BAND REMOVED. ALL BELONGING TAKEN WITH DISCHARGE PACKET. PATIENT WHEEL BY [facility] STAFF TO GO TO THEIR PRIVATE VEHICLE SAFELY.
== END 2021-12-23 11:35 | disposition home or self-care (01) | DRG 199 ==
LOC: MED 15:58 → MMU 21:38 → MIC 12-20 08:46 → MTU 12-20 18:40
PROVIDERS: ADMIT Internal Medicine; ATTEND Internal Medicine
DX: I16.0 Hypertensive urgency (principal); I21.A1 Myocardial infarction type 2; E11.65 Type 2 diabetes mellitus with hyperglycemia; E66.9 Obesity, unspecified; E83.42 Hypomagnesemia; I77.6 Arteritis, unspecified; I36.1 Nonrheumatic tricuspid (valve) insufficiency; Z20.822 Contact with and (suspected) exposure to COVID-19; Z88.2 Allergy status to sulfonamides; Z88.8 Allergy status to other drugs, medicaments and biological substances; Z90.49 Acquired absence of other specified parts of digestive tract; Z82.49 Family history of ischemic heart disease and other diseases of the circulatory system; Z79.4 Long term (current) use of insulin; Z79.899 Other long term (current) drug therapy; Z68.32 Body mass index [BMI] 32.0-32.9, adult
CPT/HCPCS: 36415; 70450; 80053; 82948; 83036; 83735; 84484; 85025; 87081; 93005; 96365; 96366; 96375; 99291; J0360; J1815; J2270; J2405; J3490

== ENCOUNTER 2022-02-08 22:03 | Emergency (ER) | payer OTHER ==
[~2022-02-08] VITALS: Ht 165.1 cm; Wt 88.5 kg
[~2022-02-08 22:03] MED LIST changes: +ACET-9525 PO; -AMOX-1230 PO; +CARV25TA PO; +FURO-570 PO; -IBUP-2213 PO; -LANTUS SC; +NIFE30TA36 PO; +OMEP20EC11 PO; +TOBDEXOS LEFT EYE; +[UNRECOGNIZED DRUG - CODE] IV; +[UNRECOGNIZED DRUG - CODE] MC
[2022-02-08 22:24] VITALS: BP 130/72
[2022-02-09] MEDS ORDERED: ASPIRIN 325 MG TAB PO ONE (01:05)
[2022-02-09] MEDS ORDERED: LORazepam 1 MG TAB PO ONE (01:05)
[2022-02-09 01:18] LABS: BASOPHILS # (AUTO) 0.1 K/uL (0.00-0.22); BASOPHILS % (AUTO) 0.8 % (0.0-2.0); EOSINOPHILS # (AUTO) 0.1 K/uL (0-0.4); EOSINOPHILS % (AUTO) 1.1 % (0.0-4.0); HEMATOCRIT 34.4 % (36-48); HEMOGLOBIN 11.4 g/dL (12.0-16.0); LYMPHOCYTES # (AUTO) 1.4 K/uL (2.5-16.5); LYMPHOCYTES % (AUTO) 21.5 % (20.5-51.1); MEAN CORPUSCULAR HEMOGLOBIN 29 pg (27-31); MEAN CORPUSCULAR HGB CONC 33 g/dL (33-37); MEAN CORPUSCULAR VOLUME 85.9 fL (80-94); MONOCYTES # (AUTO) 0.7 K/uL (0.8-1.0); MONOCYTES % (AUTO) 10.7 % (1.7-9.3); NEUTROPHILS # (AUTO) 4.2 K/uL (1.8-7.7); NEUTROPHILS % (AUTO) 65.9 % (42.2-75.2); PLATELET COUNT (AUTO) 369 K/uL (140-450); RED CELL DISTRIBUTION WIDTH 15.2 % (11.6-13.7); WHITE BLOOD COUNT (AUTO) 6.3 K/uL (4.8-10.8)
[2022-02-09 02:20] LABS: ALBUMIN 3.8 g/dL (3.4-5.0); ANION GAP 15.5 (8-16); ASPARTATE AMINOTRANSFERASE 10 U/L (15-37); CARBON DIOXIDE 21.7 mmol/L (21-32); CHLORIDE 106 mmol/L (98-107); CREATININE 1.5 mg/dL (0.6-1.3); GFR ARICAN-AMERICAN 48 mL/min (>90); GLUCOSE 161 mg/dL (74-106); POTASSIUM 4.2 mmol/L (3.5-5.1); SODIUM SERUM 139 mmol/L (136-145); TOTAL BILIRUBIN 0.2 mg/dL (0.0-1.0); UREA NITROGEN, BLOOD 18 mg/dL (7-18)
[2022-02-09 03:11] VITALS: BP 121/63
== END 2022-02-09 03:11 | disposition home or self-care (01) ==
LOC: MED 22:03
DX: R07.89 Other chest pain (principal); I10 Essential (primary) hypertension; F41.9 Anxiety disorder, unspecified; J45.909 Unspecified asthma, uncomplicated; E11.9 Type 2 diabetes mellitus without complications; Z90.49 Acquired absence of other specified parts of digestive tract; Z98.890 Other specified postprocedural states; Z79.4 Long term (current) use of insulin; Z79.899 Other long term (current) drug therapy; Z88.1 Allergy status to other antibiotic agents; Z88.2 Allergy status to sulfonamides; Z88.8 Allergy status to other drugs, medicaments and biological substances
CPT/HCPCS: 36415; 71045; 80053; 84484; 85025; 93005; 99285

== ENCOUNTER 2022-05-08 12:24 | Inpatient (IN) | payer OTHER ==
[~2022-05-08] VITALS: Ht 165.1 cm; Wt 88.5 kg
[2022-05-08 12:29] VITALS: BP 96/50
[2022-05-08] MEDS ORDERED: KETOROLAC 15 MG/ML VIAL IVP ONE (14:45)
[2022-05-08] MEDS ORDERED: MORPHINE SULFATE 4 MG/ML SYR IVP ONE (15:05)
--- NOTE | 2022-05-08 15:09 | NUR ---
MARIANN AND INFLUENZA A&B SWABED AND HANDED TO THE LAB.
--- NOTE | 2022-05-08 15:10 | NUR ---
PT TO X-RAY VIA WHEELCHAIR.
--- NOTE | 2022-05-08 15:25 | NUR ---
46 Y/O F BIBA C/O GEN WEAK X 11AM TODAY, PER PT SHE FELT LIKE SHE WAS DIZZY AND FELT LIKE "PASSING OUT". 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
[2022-05-08 15:39] LABS: BILIRUBIN,URINE NEGATIVE (NEGATIVE); BLOOD, URINE NEGATIVE (NEGATIVE); COLOR,URINE YELLOW (YELLOW); LEUKOCYTE ESTERASE ,URINE 3+ (NEGATIVE); NITRITE, URINE POSITIVE (NEGATIVE); PH,URINE 5.5 (5.0-9.0); UGLUCOSE NEGATIVE (NEGATIVE)
[2022-05-08 15:49] LABS: APPEARANCE,URINE CLOUDY (CLEAR)
[2022-05-08 15:54] LABS: BASOPHILS % (AUTO) 0.4 % (0.0-2.0); EOSINOPHILS # (AUTO) 0.1 K/uL (0-0.4); EOSINOPHILS % (AUTO) 1.2 % (0.0-4.0); HEMATOCRIT 34.1 % (36-48); LYMPHOCYTES # (AUTO) 1.4 K/uL (2.5-16.5); LYMPHOCYTES % (AUTO) 15.9 % (20.5-51.1); MEAN CORPUSCULAR HEMOGLOBIN 28 pg (27-31); MEAN CORPUSCULAR HGB CONC 32 g/dL (33-37); MEAN CORPUSCULAR VOLUME 88.1 fL (80-94); MONOCYTES # (AUTO) 0.4 K/uL (0.8-1.0); MONOCYTES % (AUTO) 5.1 % (1.7-9.3); NEUTROPHILS # (AUTO) 6.8 K/uL (1.8-7.7); NEUTROPHILS % (AUTO) 77.4 % (42.2-75.2); PLATELET COUNT (AUTO) 361 K/uL (140-450); RED BLOOD CELL COUNT(AUTO) 3.88 MIL/uL (4.20-5.40); RED CELL DISTRIBUTION WIDTH 14.8 % (11.6-13.7); WHITE BLOOD COUNT (AUTO) 8.8 K/uL (4.8-10.8)
[2022-05-08 16:04] LABS: RBC,URINE NONE SEEN /HPF (0-5); WBC,URINE TOO MANY TO COUNT /HPF (0-5)
[2022-05-08 16:23] LABS: ALBUMIN 3.6 g/dL (3.4-5.0); ANION GAP 16.2 (8-16); ASPARTATE AMINOTRANSFERASE 8 U/L (15-37); CARBON DIOXIDE 18.4 mmol/L (21-32); CHLORIDE 107 mmol/L (98-107); CREATININE 3.4 mg/dL (0.6-1.3); GFR ARICAN-AMERICAN 19 mL/min (>90); GLUCOSE 172 mg/dL (74-106); POTASSIUM 4.6 mmol/L (3.5-5.1); SODIUM SERUM 137 mmol/L (136-145); THYROID STIMULATING HORMONE 0.55 uIU/mL (0.34-3.74); TOTAL BILIRUBIN 0.2 mg/dL (0.0-1.0); UREA NITROGEN, BLOOD 35 mg/dL (7-18)
[2022-05-08] MEDS ORDERED: NACL 0.9% 1,000 ML IV ONE (17:20)
[2022-05-08] MEDS ORDERED: cefTRIAXone 1,000 MG VIAL ONE (17:28)
--- NOTE | 2022-05-08 17:39 | NUR ---
LAB AT BEDSIDE.
[2022-05-08] MEDS ORDERED: ACETAMINOPHEN 325 MG TAB PO PRN (18:15)
[2022-05-08] MEDS ORDERED: ZOLPIDEM 5 MG TAB PO PRN (18:15)
[2022-05-08] MEDS ORDERED: HYDR-3233 PO (18:38)
[2022-05-08] MEDS ORDERED: DIA250 PO (18:39)
[2022-05-08] MEDS ORDERED: CITA20TA15 PO (18:41)
[2022-05-08] MEDS ORDERED: QUET25TA PO (18:41)
[2022-05-08] MEDS: NACL 0.9% 1,000 ML IV SCH (19:10)
[2022-05-08] MEDS ORDERED: PIPERACILLIN/TAZOBACTAM 2.25 GM VIAL IV ONE ×2 (19:10→23:17)
[2022-05-08] MEDS: PIPERACILLIN/TAZOBACTAM 2.25 GM in DEXTROSE 5% 50 ML IV SCH ×2 (19:17→23:38)
--- NOTE | 2022-05-08 19:21 | NUR ---
GAVE REPORT TO VIDA CHÁVEZ.
--- NOTE | 2022-05-08 20:32 | NUR ---
Patient will be admitted to care of Dr. Myers. Admited to med surg. Will go to room 120A. Belongings list completed. Report to KYLER Brown. iv site patent. pt understands need for admission. no further questions or concerns. stable for transport to the floor by certified court interpreter.
--- NOTE | 2022-05-08 20:50 | NUR ---
PT IS ADMITTED TO [facility] DEPARTMENT FROM ER THRU [facility] WITH DX OF UTI AND LANDY. PT IS AOX4, ABLE TO VERBALIZE NEEDS AND ABLE TO FOLLOW COMMANDS. PT IS ON ROOM AIR AND ON CCHO DIET. PT HAS IV ON LEFT AC GAUGE 20 RUNNING WITH NS AT 100. PT SKIN IS INTACT. PT DENIES PAIN AT THIS TIME. NO S/S OF RESPIRATORY DISTRESS NOTED. PT WAS ORIENTED TO HOSPITAL/ROOM, BED BUTTONS AND CALL LIGHT. ALL SAFETY MEASURES IMPLEMENTED. BED IN LOW POSITION, BED WHEELS ON LOCKED AND CALL LIGHT WITHIN REACH.
[2022-05-08] MEDS: INSULIN LANTUS 100 UNITS/ML 10 ML VIAL SUBQ SCH (21:45)
--- NOTE | 2022-05-08 21:45 | NUR ---
ALL SCHEDULED AND PRESCRIBED MEDICATION WAS GIVEN TO PT PER MD ORDER. ALL SAFETY MEASURES IMPLEMENTED. BED IN LOW POSITION, BED WHEELS ON LOCKED AND CALL LIGHT WITHIN REACH.
[2022-05-08] MEDS: HYDROcodone/APAP 5/325 MG 1 TAB TAB PO PRN (21:52)
--- NOTE | 2022-05-08 21:52 | NUR ---
PRN PAIN MEDICATION WAS GIVEN TO PT PER MD ORDER DUE TO LEFT SIDED ARM PAIN AND HEADACHE WITH A PAIN SCALE OF 6/10. ALL SAFETY MEASURES IMPLEMENTED. BED IN LOW POSITION, BED WHEELS ON LOCKED AND CALL LIGHT WITHIN REACH.
[2022-05-09 00:01] VITALS: BP 126/72
--- NOTE | 2022-05-09 02:00 | NUR ---
PT IS SLEEPING. CHEST RISE AND FALL SYMMETRICALLY NOTED. RESPIRATION IS EVEN AND UNLABORED. ALL SAFETY MEASURES IMPLEMENTED. BED IN LOW POSITION, BED WHEELS ON LOCKED AND CALL LIGHT WITHIN REACH.
--- NOTE | 2022-05-09 04:00 | NUR ---
ASSISTED PT TO THE BATHROO. NO COMPLAIN OF PAIN AT THIS TIME. NO S/S OF RESPIRATORY DISTRESS NOTED. ALL SAFETY MEASURES IMPLEMENTED. BED IN LOW POSITION, BED WHEELS ON LOCKED AND CALL LIGHT WITHIN REACH.
[2022-05-09] MEDS ORDERED: PIPERACILLIN/TAZOBACTAM 2.25 GM VIAL IV ONE (05:40)
[2022-05-09] MEDS: PIPERACILLIN/TAZOBACTAM 2.25 GM in DEXTROSE 5% 50 ML IV SCH ×3 (05:40→18:32)
[2022-05-09] MEDS: NACL 0.9% 1,000 ML IV SCH ×2 (06:34→23:18)
[2022-05-09 07:22] LABS: BASOPHILS % (AUTO) 0.6 % (0.0-2.0); EOSINOPHILS # (AUTO) 0.1 K/uL (0-0.4); EOSINOPHILS % (AUTO) 2.4 % (0.0-4.0); HEMATOCRIT 32.1 % (36-48); HEMOGLOBIN 10.4 g/dL (12.0-16.0); LYMPHOCYTES % (AUTO) 17.3 % (20.5-51.1); MEAN CORPUSCULAR HEMOGLOBIN 29 pg (27-31); MEAN CORPUSCULAR HGB CONC 33 g/dL (33-37); MEAN CORPUSCULAR VOLUME 87.9 fL (80-94); MONOCYTES # (AUTO) 0.5 K/uL (0.8-1.0); MONOCYTES % (AUTO) 8.1 % (1.7-9.3); NEUTROPHILS # (AUTO) 4.2 K/uL (1.8-7.7); NEUTROPHILS % (AUTO) 71.6 % (42.2-75.2); PLATELET COUNT (AUTO) 340 K/uL (140-450); RED BLOOD CELL COUNT(AUTO) 3.65 MIL/uL (4.20-5.40); RED CELL DISTRIBUTION WIDTH 14.4 % (11.6-13.7); WHITE BLOOD COUNT (AUTO) 5.9 K/uL (4.8-10.8)
--- NOTE | 2022-05-09 07:23 | NUR ---
PT IS STABLE. ENDORSED PT TO MORNING SHIFT NURSE FOR CONTINUITY OF CARE.
--- NOTE | 2022-05-09 07:24 | NUR ---
RECEIVED REPORT FROM FACTORY WORKER NURSE FOR CONTINUITY OF CARE. PT IN BED SLEEPING AT THIS TIME. RESPIRATIONS ARE EVEN AND UNLABORED ON ROOM AIR. NO SIGNS OF DISTRESS NOTED. PT IS ALERT AND ORIENTED X4, ABLE TO VERBALIZE NEEDS, ABLE TO FOLLOW COMMANDS. ABD IS NONTENDER, NONDISTENDED WITH BOWEL SOUNDS PRESENT. PT IS CONTINENT OF BOWEL AND BLADDER, ABLE TO AMBULATE TO REST ROOM INDEPENDENTLY. PT HAS IV TO LAC 20G, INTACT AND PATENT. SKIN IS WARM, DRY, AND INTACT. CALL LIGHT WITHIN REACH. ALL SAFETY MEASURES IN PLACE. WILL CONTINUE TO MONITOR.
[2022-05-09 07:44] LABS: ANION GAP 15.1 (8-16); CARBON DIOXIDE 18.5 mmol/L (21-32); CREATININE 2.6 mg/dL (0.6-1.3); POTASSIUM 4.6 mmol/L (3.5-5.1)
[2022-05-09 08:00] VITALS: BP 150/69
--- NOTE | 2022-05-09 08:49 | NUR ---
ADMINISTERED SCHEDULED MEDICATION. EDUCATED PT REGARDING MED ADMINISTERED. PT VERBALIZED UNDERSTANDING. WILL CONTINUE TO MONITOR.
[2022-05-09] MEDS: HYDROcodone/APAP 5/325 MG 1 TAB TAB PO PRN ×3 (09:06→23:07)
--- NOTE | 2022-05-09 09:07 | NUR ---
PT COMPLAINING OF PAIN. RATES PAIN AT 6/10. MEDICATION ADMINISTERED. WILL RE-ASSESS PAIN.
--- NOTE | 2022-05-09 10:54 | NUR ---
PATIENT HAS BEEN SCREENED AND CATEGORIZED MODERATE NUTRITION RISK. PATIENT WILL BE SEEN WITHIN 3-5 DAYS OF ADMISSION. 05/11/[address]
--- NOTE | 2022-05-09 11:55 | NUR ---
IV ABX ADMINISTERED BY DOG BATHER.
--- NOTE | 2022-05-09 15:55 | NUR ---
PT COMPLAINING OF PAIN. STATES PAIN IS 6/10. MEDICATED. WILL RE-ASSESS PAIN.
[2022-05-09 16:00] VITALS: BP 158/92
--- NOTE | 2022-05-09 16:02 | NUR ---
DC PLANNING MARCIAL MET WITH PT AT BEDSIDE TO COMPLETE ASSESSMENT. PT REPORTS RESIDING IN A 2 STORY APT WITH HER FAMILY AT THE ADDRESS LISTED ON FILE. PT IDENTIFIED LIANET OSBORNE, MOTHER, AND NOMI CLARK, DAUGHTER, EMERGENCY CONTACT. PT DENIES AD IN PLACE AND DECLINED AD OFFERED BY MARCIAL. PT REPORTS LAST VISIT WITH PCP, DR LEONG, ONE MONTH AGO. SW SPOKE TO PT ABOUT IMPORTANCE OF FOLLOW UP CARE, PT RECEPTIVE HOWEVER REPORTED SHE WOULD FOLLOW UP WITH . PT REPORTS MEDICATION COMPLIANCE AND DENIES BARRIERS IN ACCESS TO NEEDED MEDICATIONS. PT REPORTS RECEIVING MEDICATION FROM [facility] IN [place] WHEN NEEDED. PT REPORTS UTILIZING FWW AND REQUIRES ASSISTANCE WITH ADL'S. 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 PT REPORTS RECEIVING [facility] HOURS OF 30 HRS/MONTH. CAREGIVER IS HER DAUGHTER NOMI CLARK, . PT REPORTS HX OF DIABETES THAT SHE REPORTS IS WELL MANAGED. PT REPORTS MENTAL HEALTH HX OF DEPRESSION AND ANXIETY. PT MEETS WITH THERAPIST AND PSYCHIATRIST 1X MONTHLY. MENTAL HEALTH IS REPORTED TO BE WELL MANAGED. PT DENIES HX OF DIALYSIS AND SNF PLACEMENT. PT REPORTS RECEIVING HH, 1 MONTH AGO THAT WAS SET UP BY CATRINA JONATHAN. PT UNABLE TO RECALL NAME OF HH AGENCY. PT REPORTS ADEQUATE FOOD IN THE HOME AND REPORTS RECEIVING [employer] BENEFITS OF $376 MONTHLY. PT REPORTS DC PLAN IS TO RETURN HOME WITH FAMILY PROVIDING TRANSPORTATION, WHEN MEDICALLY STABLE. Addendum: 05/09/22 at 1604 by Monet SWANSON Amended: Links added. Addendum: 05/11/22 at 1624 by Monet SWANSON MARCIAL OUTREACHED TO PATIENTS PCP OFFICE AT [phone]. MARCIAL SPOKE WITH RAYMOND AT DR PETER, APPT SCHEDULED FOR 05/17/22 AT 1:00 PM AT [id number] [facility] . PATIENT WAS PROVIDED WITH APPT DETAILS THAT INCLUDED; DATE, TIME, ADDRESS, PHONE NUMBER AND DR. PT ACCEPTED
[2022-05-09] MEDS: BLOOD GLUCOSE MONITORING 1 DEV DEV FS SCH ×2 (16:57→21:00)
--- NOTE | 2022-05-09 16:57 | NUR ---
PT BLOOD GLUCOSE WAS 251. ADMINISTERED 6 UNITS INSULIN PER SLIDING SCALE. ALSO, REASSESSED PT PAIN. PT STATES SHE FEELS BETTER.
[2022-05-09] MEDS: INSULIN LISPRO SLIDING SCALE 100 UNITS/ML VIAL SUBQ PRN ×2 (17:00→22:49)
[2022-05-09] MEDS ORDERED: INSULIN LISPRO 100 UNITS/ML VIAL SUBQ SCH (17:00)
[2022-05-09] MEDS: TOBRAMYCIN LEFT EYE SCH ×2 (17:02→22:41)
[2022-05-09] MEDS: [UNRECOGNIZED DRUG - OTHER] LEFT EYE SCH ×2 (17:02→22:41)
[2022-05-09] MEDS: GABAPENTIN 300 MG CAP PO SCH (17:03)
[2022-05-09] MEDS: hydrALAZINE 10 MG TAB PO SCH (17:03)
--- NOTE | 2022-05-09 18:33 | NUR ---
IV ABX ADMINISTERED BY HAND MITER OPERATOR.
--- NOTE | 2022-05-09 19:35 | NUR ---
ENDORSED PT TO FOXER NURSE FOR CONTINUITY OF CARE. PT IS STABLE.
[2022-05-09] MEDS: carvediloL 12.5 MG TAB PO SCH (22:42)
[2022-05-09] MEDS: QUEtiapine FUMARATE 25 MG TAB PO SCH (22:43)
[2022-05-09] MEDS: INSULIN LANTUS 100 UNITS/ML 10 ML VIAL SUBQ SCH (22:44)
[2022-05-10] MEDS: PIPERACILLIN/TAZOBACTAM 2.25 GM in DEXTROSE 5% 50 ML IV SCH ×4 (00:44→18:00)
[2022-05-10 00:51] VITALS: BP 164/74
[2022-05-10] MEDS: INSULIN LISPRO SLIDING SCALE 100 UNITS/ML VIAL SUBQ PRN ×4 (07:03→21:21)
[2022-05-10] MEDS: BLOOD GLUCOSE MONITORING 1 DEV DEV FS SCH ×4 (07:03→20:47)
--- NOTE | 2022-05-10 07:20 | NUR ---
RECEIVED PT FROM DISTANCE LEARNING UNIT LEADER NURSE FOR CONTINUITY OF CARE. PT IN BED AWAKE AND ORIENTED X4. RESPIRATIONS EVEN AND UNLABORED ON ROOM AIR. IV ON L A/C INFUSING NS AT 80CCS. PT DENIES PAIN. CALL LIGHT WITHIN REACH. ALL SAFETY MEASURES IN PLACE.
[2022-05-10] MEDS: NACL 0.9% 1,000 ML IV SCH ×2 (07:45→20:15)
[2022-05-10 07:47] LABS: BASOPHILS % (AUTO) 0.7 % (0.0-2.0); EOSINOPHILS # (AUTO) 0.2 K/uL (0-0.4); EOSINOPHILS % (AUTO) 3.8 % (0.0-4.0); HEMOGLOBIN 10.1 g/dL (12.0-16.0); LYMPHOCYTES # (AUTO) 1.4 K/uL (2.5-16.5); LYMPHOCYTES % (AUTO) 25.7 % (20.5-51.1); MEAN CORPUSCULAR HEMOGLOBIN 28 pg (27-31); MEAN CORPUSCULAR HGB CONC 33 g/dL (33-37); MEAN CORPUSCULAR VOLUME 87.2 fL (80-94); MONOCYTES # (AUTO) 0.5 K/uL (0.8-1.0); MONOCYTES % (AUTO) 9.4 % (1.7-9.3); NEUTROPHILS # (AUTO) 3.2 K/uL (1.8-7.7); NEUTROPHILS % (AUTO) 60.4 % (42.2-75.2); PLATELET COUNT (AUTO) 309 K/uL (140-450); RED BLOOD CELL COUNT(AUTO) 3.56 MIL/uL (4.20-5.40); RED CELL DISTRIBUTION WIDTH 14.2 % (11.6-13.7); WHITE BLOOD COUNT (AUTO) 5.3 K/uL (4.8-10.8)
[2022-05-10 08:00] VITALS: BP 138/56
[2022-05-10 08:47] LABS: CARBON DIOXIDE 19.2 mmol/L (21-32); CREATININE 1.7 mg/dL (0.6-1.3); POTASSIUM 4.2 mmol/L (3.5-5.1)
[2022-05-10] MEDS: hydrALAZINE 10 MG TAB PO SCH ×3 (08:59→17:41)
[2022-05-10] MEDS: NIFEdipine 60 MG TABER PO SCH (08:59)
[2022-05-10] MEDS: CITALOPRAM 20 MG TAB PO SCH (08:59)
[2022-05-10] MEDS ORDERED: amLODIPine 5 MG TAB PO SCH (09:00)
[2022-05-10] MEDS: carvediloL 12.5 MG TAB PO SCH ×2 (09:00→20:53)
[2022-05-10] MEDS: FUROSEMIDE 40 MG TAB PO SCH (09:01)
[2022-05-10] MEDS: ACETAZOLAMIDE SOD 250 MG TAB PO SCH (09:01)
[2022-05-10] MEDS: GABAPENTIN 300 MG CAP PO SCH ×3 (09:01→17:41)
[2022-05-10] MEDS: QUEtiapine FUMARATE 25 MG TAB PO SCH ×2 (09:02→20:53)
--- NOTE | 2022-05-10 09:02 | NUR ---
ALL SCHEDULED MORNING MEDS TAKEN. PT REFUSED HEPARIN, STATED SHE WAS ADVISED TO NOT TAKE BLOOD THINNERS DUE TO EYE SURGERY.
[2022-05-10] MEDS: [UNRECOGNIZED DRUG - OTHER] LEFT EYE SCH ×4 (09:05→20:48)
[2022-05-10] MEDS: TOBRAMYCIN LEFT EYE SCH ×4 (09:05→20:48)
[2022-05-10] MEDS ORDERED: KCL 20 MEQ/WATER INJ PREMIX 200 ML IV PRN (11:35)
[2022-05-10] MEDS ORDERED: MAG SULF 2000 MG/WATER PREMIX 50 ML IV PRN (11:35)
--- NOTE | 2022-05-10 11:40 | NUR ---
PT CALL NURSE REQUESTING TO USE RESTROOM. ASSISTED PT TO RESTROOM.
--- NOTE | 2022-05-10 11:55 | NUR ---
PT BLOOD SUGAR 339 ADMINISTERED INSULIN PER SLIDING SCALE.
--- NOTE | 2022-05-10 13:11 | NUR ---
ADMINISTERED SCHEDULED MEDS. PT TOLERATING WELL.
[2022-05-10 16:00] VITALS: BP 131/67
--- NOTE | 2022-05-10 17:24 | NUR ---
PT BLOOD SUGAR CHECK DONE BS 238. ADMINISTERED INSULIN PER SLIDING SCALE.
--- NOTE | 2022-05-10 19:25 | NUR ---
RECEIVED REPORT FROM OUTGOING NURSE. PT IN BED RESTING WITH EYES CLOSED. BREATHING EVEN AND UNLABORED. PT IN NO APPARENT DISTRESS. IV LINE @ LAC PATENT AND RUNNING WITH NS @80ML/HR.
[2022-05-10] MEDS: INSULIN LANTUS 100 UNITS/ML 10 ML VIAL SUBQ SCH (20:50)
[2022-05-10] MEDS: HYDROcodone/APAP 5/325 MG 1 TAB TAB PO PRN (21:06)
[2022-05-11] MEDS: PIPERACILLIN/TAZOBACTAM 2.25 GM in DEXTROSE 5% 50 ML IV SCH ×3 (00:40→12:57)
[2022-05-11 01:48] VITALS: BP 115/59
[2022-05-11] MEDS: BLOOD GLUCOSE MONITORING 1 DEV DEV FS SCH ×2 (05:54→11:35)
[2022-05-11] MEDS: INSULIN LISPRO SLIDING SCALE 100 UNITS/ML VIAL SUBQ PRN ×2 (05:59→11:48)
[2022-05-11 06:37] LABS: BASOPHILS % (AUTO) 0.9 % (0.0-2.0); EOSINOPHILS # (AUTO) 0.2 K/uL (0-0.4); EOSINOPHILS % (AUTO) 3.2 % (0.0-4.0); HEMATOCRIT 32.9 % (36-48); HEMOGLOBIN 10.8 g/dL (12.0-16.0); LYMPHOCYTES # (AUTO) 1.3 K/uL (2.5-16.5); MEAN CORPUSCULAR HEMOGLOBIN 28 pg (27-31); MEAN CORPUSCULAR HGB CONC 33 g/dL (33-37); MEAN CORPUSCULAR VOLUME 86.2 fL (80-94); MONOCYTES # (AUTO) 0.5 K/uL (0.8-1.0); MONOCYTES % (AUTO) 9.3 % (1.7-9.3); NEUTROPHILS # (AUTO) 3.1 K/uL (1.8-7.7); NEUTROPHILS % (AUTO) 60.6 % (42.2-75.2); PLATELET COUNT (AUTO) 330 K/uL (140-450); RED BLOOD CELL COUNT(AUTO) 3.81 MIL/uL (4.20-5.40); RED CELL DISTRIBUTION WIDTH 14.4 % (11.6-13.7); WHITE BLOOD COUNT (AUTO) 5.2 K/uL (4.8-10.8)
[2022-05-11 06:45] LABS: ANION GAP 15.6 (8-16); CARBON DIOXIDE 21.3 mmol/L (21-32); CREATININE 1.4 mg/dL (0.6-1.3); POTASSIUM 3.9 mmol/L (3.5-5.1)
[2022-05-11 08:00] VITALS: BP_SYST 139; BP_SYST 155; BP_DIAS 81; BP_DIAS 91
[2022-05-11] MEDS: NACL 0.9% 1,000 ML IV SCH (08:45)
[2022-05-11] MEDS ORDERED: hydrALAZINE 20 MG/ML VIAL IVP PRN (08:50)
[2022-05-11] MEDS: QUEtiapine FUMARATE 25 MG TAB PO SCH (09:19)
[2022-05-11] MEDS: hydrALAZINE 10 MG TAB PO SCH ×2 (09:19→13:09)
[2022-05-11] MEDS: GABAPENTIN 300 MG CAP PO SCH ×2 (09:20→13:08)
[2022-05-11] MEDS: CITALOPRAM 20 MG TAB PO SCH (09:20)
[2022-05-11] MEDS: carvediloL 12.5 MG TAB PO SCH (09:21)
[2022-05-11] MEDS: NIFEdipine 60 MG TABER PO SCH (09:21)
[2022-05-11] MEDS: ACETAZOLAMIDE SOD 250 MG TAB PO SCH (09:31)
[2022-05-11] MEDS: FUROSEMIDE 40 MG TAB PO SCH (09:31)
[2022-05-11] MEDS: TOBRAMYCIN LEFT EYE SCH ×2 (09:33→13:09)
[2022-05-11] MEDS: [UNRECOGNIZED DRUG - OTHER] LEFT EYE SCH ×2 (09:33→13:09)
[2022-05-11] MEDS ORDERED: HYDROcodone/APAP 10/325 MG 1 TAB TAB PO PRN (11:00)
--- NOTE | 2022-05-11 13:11 | NUR ---
ADMINISTERED SCHEDULED MEDS. PT TOLERATING WELL.
[2022-05-11] MEDS ORDERED: CEPH-588 PO (14:42)
== END 2022-05-11 16:40 | disposition home or self-care (01) | DRG 346 ==
LOC: MED 12:24 → MTU 18:28 → OBSVTOIN 18:29 → MTU 20:34
PROVIDERS: ADMIT Hospitalist; ATTEND Hospitalist
DX: I77.6 Arteritis, unspecified (principal); N17.0 Acute kidney failure with tubular necrosis; D63.8 Anemia in other chronic diseases classified elsewhere; E11.22 Type 2 diabetes mellitus with diabetic chronic kidney disease; N39.0 Urinary tract infection, site not specified; Z20.822 Contact with and (suspected) exposure to COVID-19; J45.909 Unspecified asthma, uncomplicated; H54.61 Unqualified visual loss, right eye, normal vision left eye; I12.9 Hypertensive chronic kidney disease with stage 1 through stage 4 chronic kidney disease, or unspecified chronic kidney disease; N18.9 Chronic kidney disease, unspecified; Z79.4 Long term (current) use of insulin; Z82.49 Family history of ischemic heart disease and other diseases of the circulatory system; Z88.2 Allergy status to sulfonamides; Z88.8 Allergy status to other drugs, medicaments and biological substances
CPT/HCPCS: 36415; 71045; 73030; 80048; 80053; 81001; 82948; 83036; 83735; 84443; 84484; 85025; 87040; 87081; 87086; 93005; 96365; 96375; 99285; J0696; J1644; J1815; J2270; J2543; J3480; J7030; J7060

== ENCOUNTER 2022-06-14 11:22 | Emergency (ER) | payer OTHER ==
[~2022-06-14] VITALS: Ht 165.1 cm; Wt 82.6 kg
[~2022-06-14 11:22] MED LIST changes: +CEPH-588 PO; +CITA20TA15 PO; +DIA250 PO; +HYDR-3233 PO; +QUET25TA PO
[2022-06-14] MEDS ORDERED: NALOXONE 0.4 MG/ML VIAL ONE (11:25)
[2022-06-14 11:32] VITALS: BP 178/93
[2022-06-14] MEDS ORDERED: NACL 0.9% 1,000 ML IV ONE (13:30)
[2022-06-14] MEDS ORDERED: cefTRIAXone 1,000 MG in LIDOCAINE MPF 1% 2.1 ML IM ONE (13:35)
[2022-06-14 14:06] LABS: BASOPHILS # (AUTO) 0.1 K/uL (0.00-0.22); BASOPHILS % (AUTO) 0.7 % (0.0-2.0); EOSINOPHILS # (AUTO) 0.1 K/uL (0-0.4); EOSINOPHILS % (AUTO) 1.5 % (0.0-4.0); HEMATOCRIT 36.2 % (36-48); HEMOGLOBIN 12.1 g/dL (12.0-16.0); LYMPHOCYTES # (AUTO) 1.3 K/uL (2.5-16.5); MEAN CORPUSCULAR HEMOGLOBIN 29 pg (27-31); MEAN CORPUSCULAR HGB CONC 33 g/dL (33-37); MEAN CORPUSCULAR VOLUME 86.6 fL (80-94); MONOCYTES # (AUTO) 0.5 K/uL (0.8-1.0); MONOCYTES % (AUTO) 5.9 % (1.7-9.3); NEUTROPHILS % (AUTO) 75.9 % (42.2-75.2); PLATELET COUNT (AUTO) 344 K/uL (140-450); RED BLOOD CELL COUNT(AUTO) 4.19 MIL/uL (4.20-5.40); RED CELL DISTRIBUTION WIDTH 14.7 % (11.6-13.7)
[2022-06-14 14:26] LABS: ALBUMIN 4.5 g/dL (3.4-5.0); ANION GAP 17.2 (8-16); CARBON DIOXIDE 21.6 mmol/L (21-32); CREATININE 1.2 mg/dL (0.6-1.3); POTASSIUM 3.8 mmol/L (3.5-5.1)
--- NOTE | 2022-06-14 14:35 | NUR ---
PT AMBULATED TO BED 9
[2022-06-14] MEDS ORDERED: cefTRIAXone 1,000 MG VIAL ONE (14:39)
[2022-06-14 15:37] LABS: TOTAL BILIRUBIN 0.2 mg/dL (0.0-1.0)
[2022-06-14 16:06] LABS: BILIRUBIN,URINE NEGATIVE (NEGATIVE); BLOOD, URINE NEGATIVE (NEGATIVE); COLOR,URINE YELLOW (YELLOW); LEUKOCYTE ESTERASE ,URINE 2+ (NEGATIVE); NITRITE, URINE NEGATIVE (NEGATIVE); UGLUCOSE NEGATIVE (NEGATIVE)
[2022-06-14 16:12] LABS: APPEARANCE,URINE HAZY (CLEAR)
[2022-06-14 16:21] LABS: RBC,URINE NONE SEEN /HPF (0-5); WBC,URINE 80-100 /HPF (0-5)
[2022-06-14] MEDS ORDERED: CEPH-588 PO (16:54)
[2022-06-14] MEDS ORDERED: PYR100 PO (16:54)
[2022-06-14] MEDS ORDERED: ACET-10509 PO (16:54)
[2022-06-14 17:44] VITALS: BP 151/75
--- NOTE | 2022-06-14 17:48 | NUR ---
Patient discharged with v/s stable. Written and verbal after care instructions ABOUT UTI given and explained. Patient alert, oriented and verbalized understanding of instructions. Ambulatory with steady gait. All questions addressed prior to discharge. ID band removed. Patient advised to follow up with PMD. Rx of TYLENOL EXTRA STRENGTH, KEFLEX, AND PYRIDIUM given. Patient educated on indication of medication including possible reaction and side effects. Opportunity to ask questions provided and answered.
== END 2022-06-14 17:48 | disposition home or self-care (01) ==
LOC: MED 11:22
DX: R10.9 Unspecified abdominal pain (principal); J45.909 Unspecified asthma, uncomplicated; E11.9 Type 2 diabetes mellitus without complications; I10 Essential (primary) hypertension; Z79.4 Long term (current) use of insulin; Z79.899 Other long term (current) drug therapy; Z88.2 Allergy status to sulfonamides; Z88.8 Allergy status to other drugs, medicaments and biological substances
CPT/HCPCS: 36415; 74176; 80053; 81001; 83605; 83690; 85025; 87040; 87086; 96365; 99284; J0696; J2310; J7030

== ENCOUNTER 2022-07-16 20:13 | Emergency (ER) | payer OTHER ==
[~2022-07-16] VITALS: Ht 165.1 cm; Wt 81.6 kg
[~2022-07-16 20:13] MED LIST changes: +ACET-10509 PO; +DEXA5SUS LEFT EYE; +PYR100 PO; -TOBDEXOS LEFT EYE
[2022-07-16 20:20] VITALS: BP 180/90
--- NOTE | 2022-07-16 20:22 | NUR ---
SEEN AND EXAMINED BY JODI
--- NOTE | 2022-07-16 20:25 | NUR ---
TO LOBBY A/W BED AMBULATORY WITH SON.(RT EYE BLIND)
[2022-07-16] MEDS ORDERED: HYDROcodone/APAP 5/325 MG 1 TAB TAB PO ONE (20:30)
[2022-07-16] MEDS ORDERED: ACET-8905 PO (21:46)
== END 2022-07-16 21:53 | disposition home or self-care (01) ==
LOC: MED 20:13
DX: M25.511 Pain in right shoulder (principal); H54.7 Unspecified visual loss; I10 Essential (primary) hypertension; E11.9 Type 2 diabetes mellitus without complications; J45.909 Unspecified asthma, uncomplicated; H54.61 Unqualified visual loss, right eye, normal vision left eye; Z88.1 Allergy status to other antibiotic agents; Z88.2 Allergy status to sulfonamides; Z88.5 Allergy status to narcotic agent; Z79.899 Other long term (current) drug therapy; Z79.4 Long term (current) use of insulin
CPT/HCPCS: 73030; 99283

== ENCOUNTER 2022-07-30 15:13 | Emergency (ER) | payer OTHER ==
[~2022-07-30] VITALS: Ht 160 cm; Wt 81.6 kg
[~2022-07-30 15:13] MED LIST changes: +ACET-8905 PO
[2022-07-30 15:32] VITALS: BP 98/57
[2022-07-30] MEDS ORDERED: METH-1681 PO (16:43)
[2022-07-30] MEDS ORDERED: ACET-3114 PO (16:43)
--- NOTE | 2022-07-30 17:12 | NUR ---
Patient discharged with v/s stable. Written and verbal after care instructions given and explained. Patient alert, oriented and verbalized understanding of instructions. Ambulatory with steady gait. All questions addressed prior to discharge. ID band removed. Patient advised to follow up with PMD. Rx of ACETAMINOPHEN-COD AND ROBAXIN given. Opportunity to ask questions provided and answered.
== END 2022-07-30 17:12 | disposition home or self-care (01) ==
LOC: MED 15:13
DX: S16.1XXA Strain of muscle, fascia and tendon at neck level, initial encounter (principal); M25.512 Pain in left shoulder; G89.29 Other chronic pain; J45.909 Unspecified asthma, uncomplicated; E11.9 Type 2 diabetes mellitus without complications; I10 Essential (primary) hypertension; Z98.890 Other specified postprocedural states; Z79.899 Other long term (current) drug therapy; Z79.891 Long term (current) use of opiate analgesic; Z79.2 Long term (current) use of antibiotics; Z79.4 Long term (current) use of insulin; Z88.8 Allergy status to other drugs, medicaments and biological substances; Z88.2 Allergy status to sulfonamides; Z88.1 Allergy status to other antibiotic agents; X58.XXXA Exposure to other specified factors, initial encounter; Y92.89 Other specified places as the place of occurrence of the external cause; Y93.89 Activity, other specified; Y99.8 Other external cause status
CPT/HCPCS: 99283

== ENCOUNTER 2022-11-23 02:00 | Emergency (ER) | payer OTHER ==
[~2022-11-23] VITALS: Ht 165.1 cm; Wt 87.1 kg
[~2022-11-23 02:00] MED LIST changes: +ACET-3114 PO; +METH-1681 PO
[2022-11-23 02:05] VITALS: BP 139/67
--- NOTE | 2022-11-23 02:07 | NUR ---
PT ALS TO BED 02
[2022-11-23] MEDS ORDERED: KETOROLAC 30 MG/ML VIAL IVP ONE (02:25)
[2022-11-23] MEDS ORDERED: ONDANSETRON 4 MG/2 ML VIAL IVP ONE (02:25)
--- NOTE | 2022-11-23 02:32 | NUR ---
20G IV CATH PLACED IN L AC. LABS AND URINE COLLECTED AND SENT
[2022-11-23 02:36] LABS: BASOPHILS # (AUTO) 0.1 K/uL (0.00-0.22); BASOPHILS % (AUTO) 0.9 % (0.0-2.0); EOSINOPHILS # (AUTO) 0.3 K/uL (0-0.4); HEMATOCRIT 32.6 % (36-48); HEMOGLOBIN 10.9 g/dL (12.0-16.0); LYMPHOCYTES % (AUTO) 24.7 % (20.5-51.1); MEAN CORPUSCULAR HEMOGLOBIN 28 pg (27-31); MEAN CORPUSCULAR HGB CONC 33 g/dL (33-37); MEAN CORPUSCULAR VOLUME 85.5 fL (80-94); MONOCYTES # (AUTO) 0.8 K/uL (0.8-1.0); MONOCYTES % (AUTO) 10.4 % (1.7-9.3); NEUTROPHILS # (AUTO) 4.8 K/uL (1.8-7.7); PLATELET COUNT (AUTO) 319 K/uL (140-450); RED BLOOD CELL COUNT(AUTO) 3.82 MIL/uL (4.20-5.40); RED CELL DISTRIBUTION WIDTH 13.1 % (11.6-13.7); WHITE BLOOD COUNT (AUTO) 7.9 K/uL (4.8-10.8)
[2022-11-23 02:37] LABS: APPEARANCE,URINE CLEAR (CLEAR); BILIRUBIN,URINE NEGATIVE (NEGATIVE); BLOOD, URINE NEGATIVE (NEGATIVE); COLOR,URINE YELLOW (YELLOW); LEUKOCYTE ESTERASE ,URINE 1+ (NEGATIVE); NITRITE, URINE NEGATIVE (NEGATIVE); PH,URINE 5.5 (5.0-9.0); UGLUCOSE NEGATIVE (NEGATIVE)
--- NOTE | 2022-11-23 02:37 | NUR ---
47YR OLD FEMALE BIB EMS C/O N/V AND ABD PAIN X1DAY. 12/17 [facility] RUQ ABD PAIN. PT STATES N/V/D FOR A DAY. DENIES CP OR SOB. RESP EVEN AND UNLABORED. SKIN DRY AND INTACT. 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 HOB ELEVATED. SULFA DM HTN
[2022-11-23 02:48] LABS: BARBITURATE, URINE NEGATIVE ng/ml (NEG <=200); BENZODIAZEPINE, URINE NEGATIVE ng/mL (NEG <=200); CANNABINOID, URINE NEGATIVE ng/mL (NEG <=50); COCAINE, URINE NEGATIVE ng/mL (NEG <=300); OPIATE, URINE NEGATIVE ng/mL (NEG <=2000); PHENCYCLIDINE SCREEN,URINE NEGATIVE ng/mL (NEG <=25)
[2022-11-23 02:51] LABS: RBC,URINE 0-5 /HPF (0-5)
[2022-11-23 02:58] LABS: ALBUMIN 3.5 g/dL (3.4-5.0); ANION GAP 10.3 (8-16); CARBON DIOXIDE 28.7 mmol/L (21-32); CREATININE 1.4 mg/dL (0.6-1.3); TOTAL BILIRUBIN 0.2 mg/dL (0.0-1.0)
[2022-11-23] MEDS ORDERED: NACL 0.9% 1,000 ML IV ONE (03:10)
[2022-11-23] MEDS ORDERED: HYDROcodone/APAP 5/325 MG 1 TAB TAB PO ONE (04:15)
[2022-11-23] MEDS ORDERED: MAG-27 PO (04:42)
[2022-11-23] MEDS ORDERED: ONDA-188 PO (04:42)
[2022-11-23] MEDS ORDERED: CEPH-588 PO (04:42)
[2022-11-23] MEDS ORDERED: ACET-8905 PO (04:42)
[2022-11-23] MEDS ORDERED: HYDR-5191 PO (04:43)
--- NOTE | 2022-11-23 04:52 | NUR ---
Patient discharged with v/s stable. Written and verbal after care instructions given and explained. Patient alert, oriented and verbalized understanding of instructions. Ambulatory with steady gait. All questions addressed prior to discharge. ID band removed. Patient advised to follow up with PMD. Rx of zofran, keflex, hydrocodone and mylanta given. Opportunity to ask questions provided and answered.
== END 2022-11-23 04:52 | disposition home or self-care (01) ==
LOC: MED 02:00
DX: R11.10 Vomiting, unspecified (principal); R19.7 Diarrhea, unspecified; N39.0 Urinary tract infection, site not specified; J45.909 Unspecified asthma, uncomplicated; E11.9 Type 2 diabetes mellitus without complications; I10 Essential (primary) hypertension; Z79.4 Long term (current) use of insulin; Z90.49 Acquired absence of other specified parts of digestive tract; Z98.890 Other specified postprocedural states; Z88.1 Allergy status to other antibiotic agents; Z88.2 Allergy status to sulfonamides; Z88.8 Allergy status to other drugs, medicaments and biological substances; Z79.899 Other long term (current) drug therapy
CPT/HCPCS: 36415; 80053; 80305; 81001; 81025; 83690; 85025; 87086; 96361; 96374; 96375; 99284; J2405; J1885; J7030

== ENCOUNTER 2023-02-02 00:36 | Inpatient (IN) | payer OTHER ==
[~2023-02-02] VITALS: Ht 165.1 cm; Wt 85.7 kg
[2023-02-02] VITALS (7 sets, daily range): BP systolic 125–165; BP diastolic 75–85; PULSE 65–87; RESP 20; TEMP 95.4–97.7; O2SAT 99–100
[~2023-02-02 00:36] MED LIST changes: +HYDR-5191 PO; +MAG-27 PO; +ONDA-188 PO
[2023-02-02] MEDS ORDERED: NACL 0.9% 1,000 ML IV SCH (02:25)
[2023-02-02] MEDS ORDERED: DEXTROSE 50% 50 ML SYR IVP ONE (03:20)
[2023-02-02 03:35] LABS: BASOPHILS % (AUTO) 0.1 % (0.0-2.0); EOSINOPHILS % (AUTO) 1.4 % (0.0-4.0); HEMATOCRIT 25.9 % (36-48); HEMOGLOBIN 8.5 g/dL (12.0-16.0); LYMPHOCYTES # (AUTO) 0.4 K/uL (2.5-16.5); LYMPHOCYTES % (AUTO) 15.2 % (20.5-51.1); MEAN CORPUSCULAR HEMOGLOBIN 30 pg (27-31); MEAN CORPUSCULAR HGB CONC 33 g/dL (33-37); MEAN CORPUSCULAR VOLUME 90.6 fL (80-94); MONOCYTES # (AUTO) 0.2 K/uL (0.8-1.0); MONOCYTES % (AUTO) 5.5 % (1.7-9.3); NEUTROPHILS # (AUTO) 2.1 K/uL (1.8-7.7); NEUTROPHILS % (AUTO) 77.8 % (42.2-75.2); PLATELET COUNT (AUTO) 149 K/uL (140-450); RED BLOOD CELL COUNT(AUTO) 2.86 MIL/uL (4.20-5.40); WHITE BLOOD COUNT (AUTO) 2.7 K/uL (4.8-10.8)
[2023-02-02] MEDS ORDERED: ACETAMINOPHEN EXTRA STRENGTH 500 MG TAB PO ONE (03:40)
[2023-02-02 03:46] LABS: INR 0.85 (0.8-1.2); PARTIAL THROMBOPLASTIN TIME 27.1 secs (22-35.6)
[2023-02-02 03:49] LABS: ALANINE AMINOTRANSFERASE 51 U/L (12-78); ALBUMIN 3.9 g/dL (3.4-5.0); ALKALINE PHOSPHATASE 36 U/L (50-136); ANION GAP 15.3 (8-16); ASPARTATE AMINOTRANSFERASE 16 U/L (15-37); CALCIUM 8.2 mg/dL (8.5-10.1); CARBON DIOXIDE 18.2 mmol/L (21-32); CHLORIDE 107 mmol/L (98-107); CREATINE KINASE, TOTAL 128 U/L (26-192); GFR ARICAN-AMERICAN 76 mL/min (>90); GFR NON ARICAN-AMERICAN 63 mL/min (>90); GLUCOSE 76 mg/dL (74-106); POTASSIUM 3.5 mmol/L (3.5-5.1); SODIUM SERUM 137 mmol/L (136-145); TOTAL BILIRUBIN 0.5 mg/dL (0.0-1.0); TOTAL PROTEIN, SERUM 6.3 g/dL (6.4-8.2); UREA NITROGEN, BLOOD 32 mg/dL (7-18)
[2023-02-02 03:51] LABS: LACTIC ACID 0.9 mmol/L (0.4-2.0)
[2023-02-02 03:53] LABS: APPEARANCE,URINE CLOUDY (CLEAR); BILIRUBIN,URINE NEGATIVE (NEGATIVE); BLOOD, URINE TRACE-I (NEGATIVE); COLOR,URINE YELLOW (YELLOW); LEUKOCYTE ESTERASE ,URINE 3+ (NEGATIVE); NITRITE, URINE POSITIVE (NEGATIVE); PH,URINE 5.5 (5.0-9.0); PROTEIN,URINE 1+ (NEGATIVE); UGLUCOSE NEGATIVE (NEGATIVE); UROBILINOGEN,URINE 0.2 EU/dL (0.2 - 1)
[2023-02-02 03:56] LABS: FREE T4 (FREE THYROXINE) 0.71 ng/dL (0.76-1.46); THYROID STIMULATING HORMONE 0.35 uIU/mL (0.34-3.74)
[2023-02-02 04:04] LABS: BACTERIA,URINE 1+ /HPF (None Seen); MUCUS,URINE 2+ /LPF (None Seen); RBC,URINE 0-5 /HPF (0-5); TRICHOMONAS,URINE None Seen /HPF (None Seen); WBC,URINE 60-80 /HPF (0-5); YEAST,URINE None Seen /HPF (None Seen)
[2023-02-02 04:10] LABS: FLU A ANTIGEN negative (NEGATIVE); FLU B ANTIGEN negative (NEGATIVE)
[2023-02-02] MEDS ORDERED: VANCOMYCIN 1,000 MG in DEXTROSE 5% 250 ML IV ONE (04:10)
[2023-02-02] MEDS ORDERED: PIPERACILLIN/TAZOBACTAM 3.375 GM in DEXTROSE 5% 50 ML IV ONE (04:10)
[2023-02-02] MEDS ORDERED: NACL 0.9% 1,000 ML IV ONE (04:10)
[2023-02-02] MEDS ORDERED: PIPERACILLIN/TAZOBACTAM 3.375 GM VIAL IV ONE (04:59)
[2023-02-02] MEDS ORDERED: ACETAMINOPHEN 325 MG TAB PO PRN (05:20)
[2023-02-02] MEDS ORDERED: HYDROcodone/APAP 5/325 MG 1 TAB TAB PO PRN (05:20)
[2023-02-02] MEDS ORDERED: MORPHINE SULFATE 2 MG/ML SYR IVP PRN (05:20)
[2023-02-02] MEDS ORDERED: ONDANSETRON 4 MG/2 ML VIAL IVP PRN (05:20)
[2023-02-02] MEDS ORDERED: LORazepam 1 MG TAB PO PRN (05:20)
[2023-02-02] MEDS ORDERED: DEXT 5% /NACL 0.9% 1,000 ML IV SCH (05:20)
[2023-02-02] MEDS ORDERED: KETOROLAC 30 MG/ML VIAL IVP ONE (05:25)
[2023-02-02] MEDS ORDERED: METOCLOPRAMIDE 10 MG/2 ML INJ VIAL IVP ONE (05:25)
[2023-02-02] MEDS ORDERED: diphenhydrAMINE 50 MG/ML VIAL IVP ONE (05:25)
[2023-02-02] MEDS ORDERED: VANCOMYCIN 1,000 MG VIAL ONE (05:49)
[2023-02-02] MEDS ORDERED: PIPERACILLIN/TAZOBACTAM 3.375 GM in DEXTROSE 5% 50 ML IV SCH ×2 (06:00→12:00)
[2023-02-02] MEDS ORDERED: INSU100I7 SQ (10:56)
== END 2023-02-02 18:29 | disposition home or self-care (01) | DRG 420 ==
LOC: MED 00:36 → MTU 05:19
PROVIDERS: ADMIT Student in an Organized Health Care Education/Training Program; ATTEND Student in an Organized Health Care Education/Training Program
DX: E11.649 Type 2 diabetes mellitus with hypoglycemia without coma (principal); G93.41 Metabolic encephalopathy; D84.9 Immunodeficiency, unspecified; E11.40 Type 2 diabetes mellitus with diabetic neuropathy, unspecified; I10 Essential (primary) hypertension; E11.65 Type 2 diabetes mellitus with hyperglycemia; I77.6 Arteritis, unspecified; Z20.822 Contact with and (suspected) exposure to COVID-19; J45.909 Unspecified asthma, uncomplicated; Z88.2 Allergy status to sulfonamides; Z79.899 Other long term (current) drug therapy; Z88.8 Allergy status to other drugs, medicaments and biological substances; Z90.49 Acquired absence of other specified parts of digestive tract; Z82.49 Family history of ischemic heart disease and other diseases of the circulatory system; Z79.891 Long term (current) use of opiate analgesic; Z79.1 Long term (current) use of non-steroidal anti-inflammatories (NSAID)
CPT/HCPCS: 36415; 70450; 71045; 80053; 81001; 82550; 82948; 83605; 84439; 84443; 84484; 85025; 85610; 85730; 87040; 87086; 96361; 96374; 96375; 99291; J1200; J1644; J1885; J2270; J2543; J2765; J3370; J7060; Q0092

== ENCOUNTER 2023-06-20 17:59 | Emergency (ER) | payer OTHER ==
[~2023-06-20] VITALS: Ht 165.1 cm; Wt 81.2 kg
[~2023-06-20 17:59] MED LIST changes: -ACET-10509 PO; -ACET-3114 PO; -ACET-8905 PO; -ACET-9525 PO; -AMLO10TA PO; -CEPH-588 PO; -CITA20TA15 PO; -DEXA5SUS LEFT EYE; -FURO-570 PO; -HYDR-3233 PO; -HYDR-5191 PO; -PYR100 PO; -[UNRECOGNIZED DRUG - CODE] IV; -[UNRECOGNIZED DRUG - CODE] MC
[2023-06-20 18:09] VITALS: BP 148/75; PULSE 83; RESP 18; TEMP 97.8; O2SAT 100
[2023-06-20 20:38] LABS: BASOPHILS # (AUTO) 0.1 K/uL (0.00-0.22); BASOPHILS % (AUTO) 1.1 % (0.0-2.0); EOSINOPHILS # (AUTO) 0.1 K/uL (0-0.4); EOSINOPHILS % (AUTO) 2.2 % (0.0-4.0); HEMATOCRIT 35.9 % (36-48); HEMOGLOBIN 11.8 g/dL (12.0-16.0); LYMPHOCYTES # (AUTO) 1.2 K/uL (2.5-16.5); LYMPHOCYTES % (AUTO) 21.5 % (20.5-51.1); MEAN CORPUSCULAR HEMOGLOBIN 27 pg (27-31); MEAN CORPUSCULAR HGB CONC 33 g/dL (33-37); MEAN CORPUSCULAR VOLUME 81.6 fL (80-94); MONOCYTES # (AUTO) 0.3 K/uL (0.8-1.0); MONOCYTES % (AUTO) 6.2 % (1.7-9.3); NEUTROPHILS # (AUTO) 3.8 K/uL (1.8-7.7); PLATELET COUNT (AUTO) 358 K/uL (140-450); RED BLOOD CELL COUNT(AUTO) 4.39 MIL/uL (4.20-5.40); RED CELL DISTRIBUTION WIDTH 17.2 % (11.6-13.7); WHITE BLOOD COUNT (AUTO) 5.5 K/uL (4.8-10.8)
[2023-06-20 20:55] LABS: ALANINE AMINOTRANSFERASE 27 U/L (12-78); ALBUMIN 3.7 g/dL (3.4-5.0); ALKALINE PHOSPHATASE 102 U/L (50-136); ANION GAP 12.1 (8-16); ASPARTATE AMINOTRANSFERASE 16 U/L (15-37); CALCIUM 9.8 mg/dL (8.5-10.1); CARBON DIOXIDE 32.3 mmol/L (21-32); CHLORIDE 100 mmol/L (98-107); CREATININE 1.2 mg/dL (0.6-1.3); GFR ARICAN-AMERICAN 62 mL/min (>90); GFR NON ARICAN-AMERICAN 51 mL/min (>90); GLUCOSE 150 mg/dL (74-106); POTASSIUM 4.4 mmol/L (3.5-5.1); SODIUM SERUM 140 mmol/L (136-145); TOTAL BILIRUBIN 0.5 mg/dL (0.0-1.0); TOTAL PROTEIN, SERUM 9.4 g/dL (6.4-8.2); UREA NITROGEN, BLOOD 16 mg/dL (7-18)
[2023-06-20] MEDS ORDERED: MORPHINE SULFATE 4 MG/ML SYR IM ONE (22:40)
[2023-06-20] MEDS ORDERED: IBUP-2213 PO (22:58)
[2023-06-20] MEDS ORDERED: FAMO-90 PO (22:58)
[2023-06-20] MEDS ORDERED: KETOROLAC 30 MG/ML VIAL IVP ONE (23:00)
[2023-06-20] MEDS ORDERED: MORPHINE SULFATE 4 MG/ML SYR IVP ONE (23:00)
[2023-06-20 23:25] VITALS: BP 169/82; PULSE 75; RESP 15; O2SAT 99
== END 2023-06-21 00:15 | disposition home or self-care (01) ==
LOC: MED 17:59
DX: R07.89 Other chest pain (principal); E87.6 Hypokalemia; E86.0 Dehydration; M54.6 Pain in thoracic spine; E11.9 Type 2 diabetes mellitus without complications; Z88.2 Allergy status to sulfonamides; Z88.8 Allergy status to other drugs, medicaments and biological substances; Z79.899 Other long term (current) drug therapy
CPT/HCPCS: 36415; 71045; 71275; 80053; 81025; 84484; 85025; 85379; 93005; 96374; 96375; 99285; J1885; J2270; Q9967

== ENCOUNTER 2023-07-09 17:59 | Inpatient (IN) | payer OTHER ==
[~2023-07-09] VITALS: Ht 165.1 cm; Wt 84.4 kg
[~2023-07-09 17:59] MED LIST changes: +FAMO-90 PO; +IBUP-2213 PO
[2023-07-09 18:26] VITALS: BP 111/59; PULSE 78; RESP 20; TEMP 98.2; O2SAT 100
[2023-07-09 19:48] LABS: BASOPHILS # (AUTO) 0.1 K/uL (0.00-0.22); BASOPHILS % (AUTO) 0.9 % (0.0-2.0); EOSINOPHILS # (AUTO) 0.2 K/uL (0-0.4); EOSINOPHILS % (AUTO) 3.4 % (0.0-4.0); HEMATOCRIT 33.7 % (36-48); HEMOGLOBIN 11.3 g/dL (12.0-16.0); LYMPHOCYTES # (AUTO) 1.5 K/uL (2.5-16.5); LYMPHOCYTES % (AUTO) 23.7 % (20.5-51.1); MEAN CORPUSCULAR HEMOGLOBIN 28 pg (27-31); MEAN CORPUSCULAR HGB CONC 33 g/dL (33-37); MEAN CORPUSCULAR VOLUME 82.4 fL (80-94); MONOCYTES # (AUTO) 0.7 K/uL (0.8-1.0); MONOCYTES % (AUTO) 10.8 % (1.7-9.3); NEUTROPHILS # (AUTO) 3.9 K/uL (1.8-7.7); NEUTROPHILS % (AUTO) 61.2 % (42.2-75.2); PLATELET COUNT (AUTO) 326 K/uL (140-450); RED BLOOD CELL COUNT(AUTO) 4.09 MIL/uL (4.20-5.40); WHITE BLOOD COUNT (AUTO) 6.3 K/uL (4.8-10.8)
[2023-07-09 20:14] LABS: ALBUMIN 3.7 g/dL (3.4-5.0); ANION GAP 13.2 (8-16); CALCIUM 9.6 mg/dL (8.5-10.1); CARBON DIOXIDE 24.2 mmol/L (21-32); CREATININE 1.3 mg/dL (0.6-1.3); POTASSIUM 3.4 mmol/L (3.5-5.1); TOTAL BILIRUBIN 0.3 mg/dL (0.0-1.0); TOTAL PROTEIN, SERUM 9.4 g/dL (6.4-8.2)
[2023-07-10 02:29] LABS: APPEARANCE,URINE CLOUDY (CLEAR); BILIRUBIN,URINE NEGATIVE (NEGATIVE); BLOOD, URINE NEGATIVE (NEGATIVE); COLOR,URINE YELLOW (YELLOW); LEUKOCYTE ESTERASE ,URINE 3+ (NEGATIVE); NITRITE, URINE NEGATIVE (NEGATIVE); PROTEIN,URINE NEGATIVE (NEGATIVE); UGLUCOSE NEGATIVE (NEGATIVE); UROBILINOGEN,URINE 0.2 EU/dL (0.2 - 1)
[2023-07-10 02:59] LABS: BACTERIA,URINE >30 (MANY) /HPF (None Seen); MUCUS,URINE 1+ /LPF (None Seen); RBC,URINE 0-5 /HPF (0-5); SQUAMOUS EPITHELIAL CELL,UR 0-3 (FEW) /LPF (0-3 (FEW)); WBC,URINE TOO MANY TO COUNT /HPF (0-5)
[2023-07-10] MEDS ORDERED: cefTRIAXone 1,000 MG VIAL ONE (04:28)
[2023-07-10] MEDS: MORPHINE SULFATE 4 MG/ML SYR IVP ONE (04:39)
[2023-07-10] MEDS ORDERED: ASPI-1822 PO (04:49)
[2023-07-10] MEDS ORDERED: INSU100S22 SUBQ (04:49)
[2023-07-10] MEDS ORDERED: GABA400C PO (04:49)
[2023-07-10] MEDS ORDERED: OMEP20EC11 PO (04:49)
[2023-07-10] MEDS ORDERED: DIA250 PO (04:49)
[2023-07-10] MEDS ORDERED: ATOR40TA PO (04:49)
[2023-07-10] MEDS ORDERED: CARV25TA PO (04:49)
[2023-07-10] MEDS ORDERED: NIFE30TE5 PO (04:49)
[2023-07-10] MEDS ORDERED: QUET25TA PO (04:49)
[2023-07-10] MEDS ORDERED: PIPERACILLIN/TAZOBACTAM 3.375 GM VIAL IV ONE ×2 (05:36→11:17)
[2023-07-10] MEDS: PIPERACILLIN/TAZOBACTAM 3.375 GM in DEXTROSE 5% 50 ML IV ONE (05:55)
[2023-07-10] MEDS ORDERED: MAGNESIUM OXIDE 400 MG TAB PO PRN (08:15)
[2023-07-10] MEDS ORDERED: ACETAMINOPHEN 325 MG TAB PO PRN (08:15)
[2023-07-10] MEDS ORDERED: MAG SULF 2000 MG/WATER PREMIX 50 ML IV PRN (08:15)
[2023-07-10] MEDS ORDERED: KCL 20 MEQ IN 100 mL PREMIX 200 ML IV PRN (08:15)
[2023-07-10] MEDS ORDERED: IBUPROFEN 400 MG TAB PO PRN (08:15)
[2023-07-10] MEDS ORDERED: ZOLPIDEM 5 MG TAB PO PRN (08:15)
[2023-07-10] MEDS ORDERED: DEXTROSE 50% 50 ML SYR IVP PRN (08:20)
[2023-07-10] MEDS ORDERED: hydrALAZINE 25 MG TAB PO PRN (08:25)
[2023-07-10] MEDS: ASPIRIN 81 MG TAB.CHEW PO SCH (09:38)
[2023-07-10] MEDS: DOCUSATE SODIUM 100 MG GELCAP PO SCH (09:39)
[2023-07-10] MEDS: carvediloL 12.5 MG TAB PO SCH (09:40)
[2023-07-10] MEDS: FAMOTIDINE 20 MG TAB PO SCH (09:41)
[2023-07-10] MEDS: GABAPENTIN 300 MG CAP PO SCH (09:41)
[2023-07-10] MEDS: ENOXAPARIN 40 MG/0.4 ML SYR SUBQ SCH (09:44)
[2023-07-10] MEDS: BLOOD GLUCOSE MONITORING 1 DEV DEV FS SCH (11:32)
[2023-07-10] MEDS: HYDROcodone/APAP 5/325 MG 1 TAB TAB PO PRN (11:34)
[2023-07-10] MEDS: PIPERACILLIN/TAZOBACTAM 3.375 GM in DEXTROSE 5% 50 ML IV SCH (12:04)
[2023-07-10 14:00] VITALS: BP 126/55; PULSE 67; PULSE 71; RESP 20; TEMP 97.3; O2SAT 96
[2023-07-10] MEDS: ONDANSETRON 4 MG/2 ML VIAL IVP PRN (15:16)
[2023-07-10 16:00] VITALS: PULSE 61
[2023-07-10] MEDS: POTASSIUM CHLORIDE 10 MEQ TABER PO PRN (17:55)
[2023-07-10] MEDS: INSULIN LISPRO SLIDING SCALE 100 UNITS/ML VIAL SUBQ PRN (18:03)
[2023-07-10 20:00] VITALS: BP 127/67; PULSE 64; RESP 16; TEMP 97.2; O2SAT 99
[2023-07-10 20:02] VITALS: PULSE 73
[2023-07-10] MEDS: ATORVASTATIN 20 MG TAB PO SCH (20:10)
[2023-07-10] MEDS: QUEtiapine FUMARATE 25 MG TAB PO SCH (20:11)
[2023-07-10] MEDS: HYDROmorphone 1 MG/ML AMP IVP PRN (22:24)
[2023-07-11] VITALS: BP 116/58; PULSE 65; PULSE 69; RESP 18; TEMP 97.5; O2SAT 97
[2023-07-11 04:00] VITALS: BP 131/83; PULSE 59; PULSE 62; RESP 18; TEMP 97.6; O2SAT 98
[2023-07-11 07:06] LABS: BASOPHILS % (AUTO) 0.8 % (0.0-2.0); EOSINOPHILS # (AUTO) 0.2 K/uL (0-0.4); EOSINOPHILS % (AUTO) 4.3 % (0.0-4.0); HEMATOCRIT 32.8 % (36-48); HEMOGLOBIN 10.9 g/dL (12.0-16.0); LYMPHOCYTES # (AUTO) 1.3 K/uL (2.5-16.5); MEAN CORPUSCULAR HEMOGLOBIN 28 pg (27-31); MEAN CORPUSCULAR HGB CONC 33 g/dL (33-37); MEAN CORPUSCULAR VOLUME 83.2 fL (80-94); MONOCYTES # (AUTO) 0.5 K/uL (0.8-1.0); MONOCYTES % (AUTO) 11.3 % (1.7-9.3); NEUTROPHILS # (AUTO) 2.8 K/uL (1.8-7.7); NEUTROPHILS % (AUTO) 56.6 % (42.2-75.2); PLATELET COUNT (AUTO) 292 K/uL (140-450); RED BLOOD CELL COUNT(AUTO) 3.94 MIL/uL (4.20-5.40); RED CELL DISTRIBUTION WIDTH 17.2 % (11.6-13.7); WHITE BLOOD COUNT (AUTO) 4.9 K/uL (4.8-10.8)
[2023-07-11 07:26] LABS: ALBUMIN 2.9 g/dL (3.4-5.0); ANION GAP 12.6 (8-16); CALCIUM 8.7 mg/dL (8.5-10.1); CARBON DIOXIDE 23.5 mmol/L (21-32); CREATININE 1.4 mg/dL (0.6-1.3); POTASSIUM 4.1 mmol/L (3.5-5.1); TOTAL BILIRUBIN 0.2 mg/dL (0.0-1.0); TOTAL PROTEIN, SERUM 7.8 g/dL (6.4-8.2)
[2023-07-11 08:00] VITALS: BP 139/66; PULSE 59; PULSE 62; PULSE 70; RESP 18; TEMP 97.2; O2SAT 100; O2SAT 98
[2023-07-11] MEDS: PANTOPRAZOLE 40 MG TABEC PO SCH (08:48)
[2023-07-11] MEDS: NACL 0.9% 1,000 ML IV SCH (09:06)
[2023-07-11 16:00] VITALS: BP 129/54; PULSE 72; RESP 18; TEMP 97.7; O2SAT 99
[2023-07-11 20:00] VITALS: BP 121/64; PULSE 73; RESP 18; TEMP 97.6; O2SAT 100
[2023-07-12 07:13] LABS: BASOPHILS % (AUTO) 0.8 % (0.0-2.0); EOSINOPHILS # (AUTO) 0.2 K/uL (0-0.4); EOSINOPHILS % (AUTO) 4.5 % (0.0-4.0); HEMATOCRIT 32.8 % (36-48); HEMOGLOBIN 10.8 g/dL (12.0-16.0); LYMPHOCYTES # (AUTO) 1.3 K/uL (2.5-16.5); LYMPHOCYTES % (AUTO) 28.8 % (20.5-51.1); MEAN CORPUSCULAR HEMOGLOBIN 28 pg (27-31); MEAN CORPUSCULAR HGB CONC 33 g/dL (33-37); MEAN CORPUSCULAR VOLUME 83.9 fL (80-94); MONOCYTES # (AUTO) 0.4 K/uL (0.8-1.0); MONOCYTES % (AUTO) 9.6 % (1.7-9.3); NEUTROPHILS # (AUTO) 2.5 K/uL (1.8-7.7); NEUTROPHILS % (AUTO) 56.3 % (42.2-75.2); PLATELET COUNT (AUTO) 263 K/uL (140-450); RED BLOOD CELL COUNT(AUTO) 3.91 MIL/uL (4.20-5.40); RED CELL DISTRIBUTION WIDTH 17.9 % (11.6-13.7); WHITE BLOOD COUNT (AUTO) 4.5 K/uL (4.8-10.8)
[2023-07-12 07:50] LABS: ANION GAP 13.4 (8-16); CALCIUM 8.5 mg/dL (8.5-10.1); CARBON DIOXIDE 23.6 mmol/L (21-32); CREATININE 1.5 mg/dL (0.6-1.3); MAGNESIUM 1.9 mg/dL (1.8-2.4); TOTAL BILIRUBIN 0.2 mg/dL (0.0-1.0)
[2023-07-12 08:37] VITALS: PULSE 78; RESP 20; O2SAT 99
[2023-07-12] MEDS ORDERED: ACET-8905 PO (08:47)
[2023-07-12 15:51] VITALS: BP 123/75; PULSE 68; RESP 18; TEMP 97.8
[2023-07-12 15:57] VITALS: BP 125/78; PULSE 68; RESP 20; TEMP 97.8
== END 2023-07-12 17:13 | disposition home or self-care (01) | DRG 463 ==
LOC: MED 17:59 → MTU 07-10 08:18
PROVIDERS: ADMIT Internal Medicine; ATTEND Internal Medicine
DX: N10 Acute pyelonephritis (principal); N17.9 Acute kidney failure, unspecified; E11.22 Type 2 diabetes mellitus with diabetic chronic kidney disease; E11.40 Type 2 diabetes mellitus with diabetic neuropathy, unspecified; B96.20 Unspecified Escherichia coli [E. coli] as the cause of diseases classified elsewhere; E78.5 Hyperlipidemia, unspecified; E87.6 Hypokalemia; F41.9 Anxiety disorder, unspecified; K21.9 Gastro-esophageal reflux disease without esophagitis; K80.20 Calculus of gallbladder without cholecystitis without obstruction; N18.9 Chronic kidney disease, unspecified; I12.9 Hypertensive chronic kidney disease with stage 1 through stage 4 chronic kidney disease, or unspecified chronic kidney disease; Z88.2 Allergy status to sulfonamides; Z90.49 Acquired absence of other specified parts of digestive tract; Z88.8 Allergy status to other drugs, medicaments and biological substances
CPT/HCPCS: 36415; 76705; 80053; 81001; 82948; 83690; 83735; 85025; 87040; 87081; 87086; 96365; 96367; 96375; 99285; J0696; J1170; J1650; J1815; J2270; J2405; J2543; J7060; Q0092

== ENCOUNTER 2023-10-06 15:00 | Emergency (ER) | payer OTHER ==
[~2023-10-06] VITALS: Ht 165.1 cm; Wt 80.3 kg
[~2023-10-06 15:00] MED LIST changes: +ACET-8905 PO; +ASPI-1822 PO; +ATOR40TA PO; +GABA400C PO; +INSU100S22 SUBQ; +NIFE30TE5 PO
[2023-10-06 15:29] VITALS: BP 98/63; PULSE 84; RESP 18; TEMP 98; O2SAT 100
[2023-10-06 15:55] LABS: BILIRUBIN,URINE 1+ (NEGATIVE); BLOOD, URINE TRACE-I (NEGATIVE); COLOR,URINE YELLOW (YELLOW); LEUKOCYTE ESTERASE ,URINE 2+ (NEGATIVE); NITRITE, URINE POSITIVE (NEGATIVE); PROTEIN,URINE 1+ (NEGATIVE); UGLUCOSE NEGATIVE (NEGATIVE); UROBILINOGEN,URINE 0.2 EU/dL (0.2 - 1)
[2023-10-06 15:57] LABS: APPEARANCE,URINE SLIGHTLY CLOUDY (CLEAR)
[2023-10-06 16:01] LABS: ICTOTEST POSITIVE (NEGATIVE); RBC,URINE 0-5 /HPF (0-5)
[2023-10-06 16:03] LABS: BACTERIA,URINE 2+ /HPF (None Seen); SQUAMOUS EPITHELIAL CELL,UR 4-10 (MOD) /LPF (0-3 (FEW))
[2023-10-06 16:04] LABS: MUCUS,URINE None Seen /LPF (None Seen)
[2023-10-06] MEDS: NACL 0.9% 1,000 ML IV ONE (16:10)
[2023-10-06] MEDS: MORPHINE SULFATE 4 MG/ML SYR IVP ONE ×2 (16:22→18:35)
[2023-10-06] MEDS: ONDANSETRON 4 MG/2 ML VIAL IVP ONE (16:29)
[2023-10-06 16:44] LABS: BASOPHILS # (AUTO) 0.1 K/uL (0.00-0.22); BASOPHILS % (AUTO) 0.7 % (0.0-2.0); EOSINOPHILS # (AUTO) 0.2 K/uL (0-0.4); EOSINOPHILS % (AUTO) 3.3 % (0.0-4.0); HEMATOCRIT 33.3 % (36-48); HEMOGLOBIN 11.1 g/dL (12.0-16.0); LYMPHOCYTES # (AUTO) 0.8 K/uL (2.5-16.5); LYMPHOCYTES % (AUTO) 10.5 % (20.5-51.1); MEAN CORPUSCULAR HEMOGLOBIN 31 pg (27-31); MEAN CORPUSCULAR HGB CONC 33 g/dL (33-37); MEAN CORPUSCULAR VOLUME 92.8 fL (80-94); MONOCYTES # (AUTO) 0.4 K/uL (0.8-1.0); MONOCYTES % (AUTO) 5.1 % (1.7-9.3); NEUTROPHILS # (AUTO) 5.9 K/uL (1.8-7.7); NEUTROPHILS % (AUTO) 80.4 % (42.2-75.2); PLATELET COUNT (AUTO) 301 K/uL (140-450); RED BLOOD CELL COUNT(AUTO) 3.59 MIL/uL (4.20-5.40); WHITE BLOOD COUNT (AUTO) 7.3 K/uL (4.8-10.8)
[2023-10-06 16:53] LABS: ANION GAP 18.5 (8-16); CALCIUM 9.1 mg/dL (8.5-10.1); CARBON DIOXIDE 17.4 mmol/L (21-32); CREATININE 1.5 mg/dL (0.6-1.3); POTASSIUM 3.9 mmol/L (3.5-5.1)
[2023-10-06 17:06] LABS: ALBUMIN 3.9 g/dL (3.4-5.0); BILIRUBIN,DIRECT 0.1 mg/dL (0.0-0.3); TOTAL BILIRUBIN 0.4 mg/dL (0.0-1.0); TOTAL PROTEIN, SERUM 8.1 g/dL (6.4-8.2)
[2023-10-06] MEDS ORDERED: cefTRIAXone 1,000 MG VIAL ONE (17:12)
[2023-10-06] MEDS ORDERED: HYDR-5071 PO (17:20)
[2023-10-06] MEDS ORDERED: CEPH-588 PO (17:20)
[2023-10-06 18:50] VITALS: BP 127/74; PULSE 77; RESP 12; TEMP 98; O2SAT 100
== END 2023-10-06 18:50 | disposition home or self-care (01) ==
LOC: MED 15:00
DX: N20.0 Calculus of kidney (principal); J45.909 Unspecified asthma, uncomplicated; I12.9 Hypertensive chronic kidney disease with stage 1 through stage 4 chronic kidney disease, or unspecified chronic kidney disease; E11.22 Type 2 diabetes mellitus with diabetic chronic kidney disease; Z79.4 Long term (current) use of insulin; Z79.899 Other long term (current) drug therapy; Z88.2 Allergy status to sulfonamides; Z88.8 Allergy status to other drugs, medicaments and biological substances; Z90.49 Acquired absence of other specified parts of digestive tract
CPT/HCPCS: 36415; 80048; 80076; 81001; 81025; 83690; 85025; 87086; 96361; 96365; 96375; 96376; 99284; J0696; J2270; J2405; J7030

== ENCOUNTER 2023-10-09 16:32 | Emergency (ER) | payer OTHER ==
[~2023-10-09] VITALS: Ht 165.1 cm; Wt 81.8 kg
[~2023-10-09 16:32] MED LIST changes: +CEPH-588 PO; +HYDR-5071 PO
[2023-10-09 16:46] VITALS: BP 125/77; PULSE 81; RESP 18; TEMP 97.5; O2SAT 100
[2023-10-09] MEDS: HYDROcodone/APAP 5/325 MG 1 TAB TAB PO ONE (17:29)
[2023-10-09] MEDS: MORPHINE SULFATE 4 MG/ML SYR IM ONE (18:48)
[2023-10-09] MEDS ORDERED: CIPR500T4 PO (20:24)
== END 2023-10-09 20:54 | disposition home or self-care (01) ==
LOC: MED 16:32
DX: N12 Tubulo-interstitial nephritis, not specified as acute or chronic (principal); J45.909 Unspecified asthma, uncomplicated; I12.9 Hypertensive chronic kidney disease with stage 1 through stage 4 chronic kidney disease, or unspecified chronic kidney disease; E11.22 Type 2 diabetes mellitus with diabetic chronic kidney disease; N18.2 Chronic kidney disease, stage 2 (mild); Z79.4 Long term (current) use of insulin; Z79.899 Other long term (current) drug therapy; Z88.2 Allergy status to sulfonamides; Z88.8 Allergy status to other drugs, medicaments and biological substances
CPT/HCPCS: 76770; 96372; 99285; J2270

== ENCOUNTER 2023-10-24 22:54 | Emergency (ER) | payer OTHER ==
[~2023-10-24] VITALS: Ht 165.1 cm; Wt 80.3 kg
[~2023-10-24 22:54] MED LIST changes: +CIPR500T4 PO
[2023-10-24 22:59] VITALS: BP 160/71; PULSE 78; RESP 16; TEMP 97.5; O2SAT 100
[2023-10-24 23:19] LABS: APPEARANCE,URINE SL CLOUDY (CLEAR); BILIRUBIN,URINE NEGATIVE (NEGATIVE); BLOOD, URINE 2+ (NEGATIVE); COLOR,URINE YELLOW (YELLOW); LEUKOCYTE ESTERASE ,URINE 2+ (NEGATIVE); NITRITE, URINE NEGATIVE (NEGATIVE); PH,URINE 6.5 (5.0-9.0); PROTEIN,URINE NEGATIVE (NEGATIVE); UGLUCOSE 1+ (NEGATIVE)
[2023-10-24 23:45] LABS: BACTERIA,URINE 10-30 (MOD) /HPF (None Seen); MUCUS,URINE 1+ /LPF (None Seen); SQUAMOUS EPITHELIAL CELL,UR 0-3 (FEW) /LPF (0-3 (FEW)); WBC,URINE TOO MANY TO COUNT /HPF (0-5)
[2023-10-25 01:48] LABS: BASOPHILS % (AUTO) 0.8 % (0.0-2.0); EOSINOPHILS # (AUTO) 0.2 K/uL (0-0.4); EOSINOPHILS % (AUTO) 3.8 % (0.0-4.0); HEMATOCRIT 33.1 % (36-48); HEMOGLOBIN 11.2 g/dL (12.0-16.0); LYMPHOCYTES # (AUTO) 1.5 K/uL (2.5-16.5); LYMPHOCYTES % (AUTO) 24.7 % (20.5-51.1); MEAN CORPUSCULAR HEMOGLOBIN 31 pg (27-31); MEAN CORPUSCULAR HGB CONC 34 g/dL (33-37); MEAN CORPUSCULAR VOLUME 92.4 fL (80-94); MONOCYTES # (AUTO) 0.2 K/uL (0.8-1.0); MONOCYTES % (AUTO) 3.8 % (1.7-9.3); NEUTROPHILS % (AUTO) 66.9 % (42.2-75.2); PLATELET COUNT (AUTO) 256 K/uL (140-450); RED BLOOD CELL COUNT(AUTO) 3.58 MIL/uL (4.20-5.40); RED CELL DISTRIBUTION WIDTH 13.5 % (11.6-13.7); WHITE BLOOD COUNT (AUTO) 5.9 K/uL (4.8-10.8)
[2023-10-25] MEDS: KETOROLAC 30 MG/ML VIAL IVP ONE (01:52)
[2023-10-25] MEDS: ONDANSETRON 4 MG/2 ML VIAL IVP ONE (01:53)
[2023-10-25 02:00] VITALS: TEMP 97.5
[2023-10-25 02:04] LABS: POTASSIUM 3.8 mmol/L (3.5-5.1)
[2023-10-25 02:05] LABS: ANION GAP 17.4 (8-16); CALCIUM 8.9 mg/dL (8.5-10.1); CARBON DIOXIDE 19.4 mmol/L (21-32); CREATININE 1.5 mg/dL (0.6-1.3)
[2023-10-25 02:11] LABS: ALBUMIN 3.9 g/dL (3.4-5.0); BILIRUBIN,DIRECT 0.1 mg/dL (0.0-0.3); TOTAL BILIRUBIN 0.5 mg/dL (0.0-1.0); TOTAL PROTEIN, SERUM 7.8 g/dL (6.4-8.2)
[2023-10-25 02:13] LABS: LACTIC ACID 0.6 mmol/L (0.4-2.0)
[2023-10-25] MEDS: MORPHINE SULFATE 4 MG/ML SYR IVP ONE (03:11)
[2023-10-25 04:23] VITALS: BP 157/68; PULSE 83; RESP 14; O2SAT 98
[2023-10-25] MEDS ORDERED: ACET-8905 PO (04:31)
[2023-10-25] MEDS ORDERED: NITR100C7 PO (04:31)
[2023-10-25] MEDS ORDERED: NAPR-337 PO (04:31)
[2023-10-25] MEDS: NITROFURANTOIN 100 MG CAP PO STA (04:50)
== END 2023-10-25 04:54 | disposition home or self-care (01) ==
LOC: MED 22:54
DX: N39.0 Urinary tract infection, site not specified (principal); M54.50 Low back pain, unspecified; J45.909 Unspecified asthma, uncomplicated; I12.9 Hypertensive chronic kidney disease with stage 1 through stage 4 chronic kidney disease, or unspecified chronic kidney disease; E11.22 Type 2 diabetes mellitus with diabetic chronic kidney disease; Z79.4 Long term (current) use of insulin; Z79.899 Other long term (current) drug therapy; Z88.8 Allergy status to other drugs, medicaments and biological substances; Z88.2 Allergy status to sulfonamides
CPT/HCPCS: 36415; 80048; 80076; 81001; 83605; 83690; 85025; 87040; 87086; 96374; 96375; 99284; J1885; J2270; J2405

== ENCOUNTER 2023-12-31 07:14 | Emergency (ER) | payer OTHER ==
[~2023-12-31] VITALS: Ht 165.1 cm; Wt 72.2 kg
[~2023-12-31 07:14] MED LIST changes: +NAPR-337 PO; +NITR100C7 PO
[2023-12-31 07:24] VITALS: BP 127/27; PULSE 88; RESP 20; TEMP 97.6; O2SAT 99
[2023-12-31 08:31] LABS: BASOPHILS % (AUTO) 0.7 % (0.0-2.0); EOSINOPHILS # (AUTO) 0.2 K/uL (0-0.4); EOSINOPHILS % (AUTO) 3.7 % (0.0-4.0); HEMATOCRIT 34.3 % (36-48); HEMOGLOBIN 11.4 g/dL (12.0-16.0); LYMPHOCYTES # (AUTO) 2.3 K/uL (2.5-16.5); LYMPHOCYTES % (AUTO) 37.9 % (20.5-51.1); MEAN CORPUSCULAR HEMOGLOBIN 30 pg (27-31); MEAN CORPUSCULAR HGB CONC 33 g/dL (33-37); MEAN CORPUSCULAR VOLUME 90.7 fL (80-94); MONOCYTES # (AUTO) 0.5 K/uL (0.8-1.0); MONOCYTES % (AUTO) 9.1 % (1.7-9.3); NEUTROPHILS # (AUTO) 2.9 K/uL (1.8-7.7); NEUTROPHILS % (AUTO) 48.6 % (42.2-75.2); PLATELET COUNT (AUTO) 240 K/uL (140-450); RED BLOOD CELL COUNT(AUTO) 3.78 MIL/uL (4.20-5.40); RED CELL DISTRIBUTION WIDTH 13.9 % (11.6-13.7)
[2023-12-31 08:46] LABS: AMPHETAMINE, URINE NEGATIVE ng/ml (NEG <=1000); BARBITURATE, URINE NEGATIVE ng/ml (NEG <=200); BENZODIAZEPINE, URINE NEGATIVE ng/mL (NEG <=200); CANNABINOID, URINE NEGATIVE ng/mL (NEG <=50); COCAINE, URINE NEGATIVE ng/mL (NEG <=300); OPIATE, URINE NEGATIVE ng/mL (NEG <=2000); PHENCYCLIDINE SCREEN,URINE NEGATIVE ng/mL (NEG <=25)
[2023-12-31 09:28] LABS: ALCOHOL, BLOOD < 3 mg/dL (<10); ANION GAP 11.2 (8-16); CALCIUM 9.1 mg/dL (8.5-10.1); CARBON DIOXIDE 27.2 mmol/L (21-32); CREATININE 1.6 mg/dL (0.6-1.3); POTASSIUM 3.4 mmol/L (3.5-5.1)
[2023-12-31 09:33] LABS: SALICYLATE < 2.8 mg/dL (2.8-20.0)
[2023-12-31 11:56] LABS: ACETAMINOPHEN < 0.5 ug/ml (10-30)
[2023-12-31] MEDS: FLUoxetine 20 MG CAP PO SCH (12:00)
[2023-12-31 18:25] VITALS: BP 137/77; PULSE 89; RESP 18; TEMP 98.2; O2SAT 98
[2023-12-31] MEDS ORDERED: OLANZapine 5 MG ODT PO SCH (21:00)
== END 2023-12-31 18:35 ==
LOC: MED 07:14
DX: R45.851 Suicidal ideations (principal); F32.A Depression, unspecified; J45.909 Unspecified asthma, uncomplicated; I12.9 Hypertensive chronic kidney disease with stage 1 through stage 4 chronic kidney disease, or unspecified chronic kidney disease; E11.22 Type 2 diabetes mellitus with diabetic chronic kidney disease; N18.2 Chronic kidney disease, stage 2 (mild); Z20.822 Contact with and (suspected) exposure to COVID-19; Z79.4 Long term (current) use of insulin; Z79.84 Long term (current) use of oral hypoglycemic drugs; Z79.1 Long term (current) use of non-steroidal anti-inflammatories (NSAID); Z79.899 Other long term (current) drug therapy; Z88.2 Allergy status to sulfonamides; Z88.8 Allergy status to other drugs, medicaments and biological substances
CPT/HCPCS: 36415; 80048; 80305; 81025; 82948; 85025; 87426; 93005; 99285; G0480; G0482

== ENCOUNTER 2024-01-16 16:53 | Inpatient (IN) | payer OTHER ==
[~2024-01-16] VITALS: Ht 165.1 cm; Wt 68.9 kg
[2024-01-16 17:07] VITALS: BP 92/53; PULSE 76; RESP 14; TEMP 98.4; O2SAT 96
[2024-01-16 17:20] VITALS: O2SAT 96
[2024-01-16 18:25] LABS: BASOPHILS % (AUTO) 0.8 % (0.0-2.0); EOSINOPHILS # (AUTO) 0.2 K/uL (0-0.4); HEMOGLOBIN 11.6 g/dL (12.0-16.0); LYMPHOCYTES # (AUTO) 1.3 K/uL (2.5-16.5); LYMPHOCYTES % (AUTO) 21.9 % (20.5-51.1); MEAN CORPUSCULAR HEMOGLOBIN 29 pg (27-31); MEAN CORPUSCULAR HGB CONC 32 g/dL (33-37); MEAN CORPUSCULAR VOLUME 91.2 fL (80-94); MONOCYTES # (AUTO) 0.5 K/uL (0.8-1.0); MONOCYTES % (AUTO) 7.7 % (1.7-9.3); NEUTROPHILS % (AUTO) 66.6 % (42.2-75.2); PLATELET COUNT (AUTO) 278 K/uL (140-450); RED BLOOD CELL COUNT(AUTO) 3.95 MIL/uL (4.20-5.40); RED CELL DISTRIBUTION WIDTH 14.1 % (11.6-13.7)
[2024-01-16 18:52] LABS: ANION GAP 14.9 (8-16); CALCIUM 9.5 mg/dL (8.5-10.1); CARBON DIOXIDE 26.6 mmol/L (21-32); CREATININE 2.1 mg/dL (0.6-1.3); POTASSIUM 3.5 mmol/L (3.5-5.1)
[2024-01-16 19:00] LABS: BILIRUBIN,URINE NEGATIVE (NEGATIVE); BLOOD, URINE 3+ (NEGATIVE); COLOR,URINE YELLOW (YELLOW); LEUKOCYTE ESTERASE ,URINE 3+ (NEGATIVE); NITRITE, URINE NEGATIVE (NEGATIVE); PH,URINE 6.5 (5.0-9.0); PROTEIN,URINE TRACE (NEGATIVE); UGLUCOSE TRACE (NEGATIVE)
[2024-01-16 19:03] LABS: APPEARANCE,URINE SLIGHTLY CLOUDY (CLEAR)
[2024-01-16 19:06] LABS: ALANINE AMINOTRANSFERASE 20 U/L (12-78); ALBUMIN 3.5 g/dL (3.4-5.0); ALKALINE PHOSPHATASE 76 U/L (50-136); ASPARTATE AMINOTRANSFERASE 7 U/L (15-37); BILIRUBIN,DIRECT 0.1 mg/dL (0.0-0.3); LIPASE 41 U/L (16-77); THYROID STIMULATING HORMONE 0.45 uIU/mL (0.34-3.74); TOTAL BILIRUBIN 0.5 mg/dL (0.0-1.0); TOTAL PROTEIN, SERUM 7.5 g/dL (6.4-8.2)
[2024-01-16 19:15] LABS: BACTERIA,URINE 2+ /HPF (None Seen); MUCUS,URINE None Seen /LPF (None Seen); RBC,URINE 11-20 (MOD) /HPF (0-5); SQUAMOUS EPITHELIAL CELL,UR 4-10 (MOD) /LPF (0-3 (FEW))
[2024-01-16] MEDS: NACL 0.9% 1,000 ML IV ONE (19:15)
[2024-01-16] MEDS: ONDANSETRON 4 MG/2 ML VIAL IVP ONE (19:32)
[2024-01-16] MEDS ORDERED: cefTRIAXone 1,000 MG VIAL ONE (21:08)
[2024-01-17] MEDS: NACL 0.9% 1,000 ML IV ONE (00:30)
[2024-01-17] MEDS ORDERED: ONDANSETRON 4 MG/2 ML VIAL IVP PRN (00:40)
[2024-01-17] MEDS ORDERED: HYDROcodone/APAP 5/325 MG 1 TAB TAB PO PRN (00:40)
[2024-01-17] MEDS ORDERED: INSU100I34 SUBQ (00:43)
[2024-01-17] MEDS ORDERED: METF-352 PO (00:43)
[2024-01-17] MEDS ORDERED: METH2.5T7 PO (00:43)
[2024-01-17] MEDS ORDERED: GABA600T12 PO (00:43)
[2024-01-17] MEDS ORDERED: FERR-149 PO (00:43)
[2024-01-17] MEDS ORDERED: ATOR40TA40 PO (00:43)
[2024-01-17] MEDS ORDERED: QUET50TA15 PO (00:43)
[2024-01-17] MEDS ORDERED: NIFE30TE5 PO (00:43)
[2024-01-17] MEDS ORDERED: CARV25TA2 PO (00:43)
[2024-01-17] MEDS ORDERED: ONDA8TAB13 PO (00:43)
[2024-01-17] MEDS ORDERED: ESCI20TA49 PO (00:43)
[2024-01-17] MEDS ORDERED: FOLI1TAB90 PO (00:43)
[2024-01-17] MEDS ORDERED: LIDO1ADH38 TP (00:43)
[2024-01-17] MEDS ORDERED: SEMA0.258 SUBQ (00:43)
[2024-01-17] MEDS ORDERED: DEXTROSE 50% 50 ML SYR IVP PRN (01:05)
[2024-01-17] MEDS: NACL 0.9% 1,000 ML IV SCH (01:15)
[2024-01-17 01:50] VITALS: RESP 18; O2SAT 99
[2024-01-17] MEDS: LORazepam 1 MG TAB PO PRN (03:12)
[2024-01-17] MEDS: ACETAMINOPHEN 325 MG TAB PO PRN (03:13)
[2024-01-17 04:00] VITALS: BP 117/63; PULSE 70; RESP 18; TEMP 97.9; O2SAT 96
[2024-01-17] MEDS: BLOOD GLUCOSE MONITORING 1 DEV DEV FS SCH (06:48)
[2024-01-17] MEDS: INSULIN LISPRO SLIDING SCALE 100 UNITS/ML VIAL SUBQ PRN (06:49)
[2024-01-17 08:00] VITALS: BP 122/64; PULSE 66; RESP 18; TEMP 97.3; O2SAT 99
[2024-01-17] MEDS: QUEtiapine FUMARATE 25 MG TAB PO SCH ×2 (09:00→20:40)
[2024-01-17] MEDS: GABAPENTIN 300 MG CAP PO SCH (10:14)
[2024-01-17] MEDS: DOCUSATE SODIUM 100 MG GELCAP PO SCH (10:14)
[2024-01-17] MEDS: ASPIRIN 81 MG TAB.CHEW PO SCH (10:14)
[2024-01-17] MEDS: ESCITALOPRAM 20 MG TAB PO SCH (10:14)
[2024-01-17] MEDS: INSULIN LANTUS 100 UNITS/ML 10 ML VIAL SUBQ ONE (10:17)
[2024-01-17 16:00] VITALS: BP 136/63; PULSE 72; RESP 18; TEMP 98.1; O2SAT 98
[2024-01-17 20:00] VITALS: BP 146/73; PULSE 78; RESP 18; TEMP 98; O2SAT 97
[2024-01-17] MEDS: MEDS-TO-BEDS MC SCH (20:40)
[2024-01-17] MEDS: ATORVASTATIN 20 MG TAB PO SCH (20:40)
[2024-01-17] MEDS: ZOLPIDEM 5 MG TAB PO PRN (20:41)
[2024-01-18] VITALS: BP 146/73; PULSE 78; RESP 18; TEMP 98; O2SAT 97
[2024-01-18 04:00] VITALS: BP 144/80; PULSE 66; RESP 18; TEMP 97.2; O2SAT 98
[2024-01-18 06:49] LABS: BASOPHILS % (AUTO) 0.8 % (0.0-2.0); EOSINOPHILS # (AUTO) 0.2 K/uL (0-0.4); EOSINOPHILS % (AUTO) 3.7 % (0.0-4.0); HEMATOCRIT 34.5 % (36-48); HEMOGLOBIN 11.4 g/dL (12.0-16.0); LYMPHOCYTES # (AUTO) 1.7 K/uL (2.5-16.5); MEAN CORPUSCULAR HEMOGLOBIN 30 pg (27-31); MEAN CORPUSCULAR HGB CONC 33 g/dL (33-37); MEAN CORPUSCULAR VOLUME 91.9 fL (80-94); MONOCYTES # (AUTO) 0.4 K/uL (0.8-1.0); NEUTROPHILS # (AUTO) 2.3 K/uL (1.8-7.7); NEUTROPHILS % (AUTO) 50.5 % (42.2-75.2); PLATELET COUNT (AUTO) 245 K/uL (140-450); RED BLOOD CELL COUNT(AUTO) 3.76 MIL/uL (4.20-5.40); RED CELL DISTRIBUTION WIDTH 13.9 % (11.6-13.7); WHITE BLOOD COUNT (AUTO) 4.6 K/uL (4.8-10.8)
[2024-01-18 07:52] LABS: CALCIUM 8.9 mg/dL (8.5-10.1); CARBON DIOXIDE 24.7 mmol/L (21-32); POTASSIUM 3.7 mmol/L (3.5-5.1)
[2024-01-18 07:53] LABS: ALBUMIN 3.2 g/dL (3.4-5.0); CREATININE 1.3 mg/dL (0.6-1.3); MAGNESIUM 1.4 mg/dL (1.8-2.4); TOTAL BILIRUBIN 0.3 mg/dL (0.0-1.0)
[2024-01-18 08:00] VITALS: BP 126/70; PULSE 63; RESP 18; TEMP 97.7; O2SAT 98
[2024-01-18 16:00] VITALS: BP 126/70; PULSE 68; RESP 17; TEMP 97.7; O2SAT 98
[2024-01-18] MEDS ORDERED: MECLIZINE 25 MG TAB PO PRN (16:40)
[2024-01-18] MEDS ORDERED: LEVO-481 PO (16:43)
[2024-01-18] MEDS ORDERED: MECL-303 PO (16:43)
[2024-01-18] MEDS: MAG SULF 2000 MG/WATER PREMIX 100 ML IV SCH (17:22)
[2024-01-18] MEDS: MAGNESIUM OXIDE 400 MG TAB PO ONE (17:41)
[2024-01-18 18:24] VITALS: BP 126/70; PULSE 68; RESP 17; TEMP 97.7
== END 2024-01-18 20:30 | disposition home or self-care (01) | DRG 463 ==
LOC: MED 16:53 → MTU 01-17 00:38
PROVIDERS: ADMIT Internal Medicine; ATTEND Internal Medicine
DX: N30.00 Acute cystitis without hematuria (principal); N17.9 Acute kidney failure, unspecified; E11.319 Type 2 diabetes mellitus with unspecified diabetic retinopathy without macular edema; D63.1 Anemia in chronic kidney disease; E86.0 Dehydration; E11.22 Type 2 diabetes mellitus with diabetic chronic kidney disease; H54.8 Legal blindness, as defined in USA; Z20.822 Contact with and (suspected) exposure to COVID-19; I12.9 Hypertensive chronic kidney disease with stage 1 through stage 4 chronic kidney disease, or unspecified chronic kidney disease; N18.2 Chronic kidney disease, stage 2 (mild); J45.909 Unspecified asthma, uncomplicated; Z88.8 Allergy status to other drugs, medicaments and biological substances; Z88.2 Allergy status to sulfonamides; Z79.82 Long term (current) use of aspirin; Z79.84 Long term (current) use of oral hypoglycemic drugs; Z79.4 Long term (current) use of insulin; Z79.899 Other long term (current) drug therapy
CPT/HCPCS: 36415; 70450; 71045; 80048; 80053; 80076; 81001; 82948; 83690; 83735; 84100; 84443; 84484; 85025; 87040; 87081; 87086; 93005; 96365; 96375; 99285; J0696; J1644; J1815; J2405; J3475; J7060; Q0092

== ENCOUNTER 2024-02-16 17:48 | Inpatient (IN) | payer OTHER ==
[~2024-02-16] VITALS: Ht 165.1 cm; Wt 69.4 kg
[~2024-02-16 17:48] MED LIST changes: -CEPH-588 PO; -CIPR500T4 PO; +ESCI20TA49 PO; +FERR-149 PO; +FOLI1TAB90 PO; +GABA600T12 PO; +INSU100I34 SUBQ; +LEVO-481 PO; +LIDO1ADH38 TP; +MECL-303 PO; +METF-352 PO; +METH2.5T7 PO; +ONDA8TAB13 PO; +QUET50TA15 PO; +SEMA0.258 SUBQ
[2024-02-16 17:51] VITALS: BP 114/63; PULSE 79; RESP 16; TEMP 97.7; O2SAT 99
[2024-02-16 18:26] LABS: BASOPHILS % (AUTO) 0.6 % (0.0-2.0); EOSINOPHILS # (AUTO) 0.1 K/uL (0-0.4); EOSINOPHILS % (AUTO) 1.7 % (0.0-4.0); HEMATOCRIT 36.5 % (36-48); LYMPHOCYTES # (AUTO) 1.3 K/uL (2.5-16.5); LYMPHOCYTES % (AUTO) 15.7 % (20.5-51.1); MEAN CORPUSCULAR HEMOGLOBIN 30 pg (27-31); MEAN CORPUSCULAR HGB CONC 33 g/dL (33-37); MEAN CORPUSCULAR VOLUME 89.6 fL (80-94); MONOCYTES # (AUTO) 0.6 K/uL (0.8-1.0); NEUTROPHILS # (AUTO) 6.1 K/uL (1.8-7.7); PLATELET COUNT (AUTO) 256 K/uL (140-450); RED BLOOD CELL COUNT(AUTO) 4.08 MIL/uL (4.20-5.40); RED CELL DISTRIBUTION WIDTH 13.5 % (11.6-13.7); WHITE BLOOD COUNT (AUTO) 8.1 K/uL (4.8-10.8)
[2024-02-16 18:37] LABS: ANION GAP 18.3 (8-16); CARBON DIOXIDE 23.5 mmol/L (21-32); CREATININE 1.5 mg/dL (0.6-1.3); POTASSIUM 3.8 mmol/L (3.5-5.1)
[2024-02-16] MEDS: ONDANSETRON 4 MG/2 ML VIAL IVP ONE (18:46)
[2024-02-16] MEDS: NACL 0.9% 1,000 ML IV ONE (18:46)
[2024-02-16] MEDS: ACETAMINOPHEN EXTRA STRENGTH 500 MG TAB PO ONE (18:47)
[2024-02-16 18:50] LABS: FLU A ANTIGEN NEGATIVE (NEGATIVE); FLU B ANTIGEN NEGATIVE (NEGATIVE)
[2024-02-16 18:55] LABS: ALANINE AMINOTRANSFERASE 24 U/L (12-78); ALBUMIN 3.4 g/dL (3.4-5.0); ALKALINE PHOSPHATASE 81 U/L (50-136); ASPARTATE AMINOTRANSFERASE 13 U/L (15-37); BILIRUBIN,DIRECT 0.2 mg/dL (0.0-0.3); LIPASE 31 U/L (16-77); TOTAL BILIRUBIN 1.3 mg/dL (0.0-1.0)
[2024-02-16] MEDS ORDERED: ACETAMINOPHEN 325 MG TAB PO PRN (21:00)
[2024-02-16] MEDS ORDERED: MORPHINE SULFATE 4 MG/ML SYR IVP PRN (21:00)
[2024-02-16] MEDS ORDERED: DEXTROSE 50% 50 ML SYR IVP PRN (21:05)
[2024-02-16 21:26] VITALS: PULSE 74; PULSE 76; RESP 14; O2SAT 100
[2024-02-16] MEDS: ALBUTEROL 0.083% 2.5 MG/3 ML NEBU INH PRN (21:26)
[2024-02-16 22:33] LABS: APPEARANCE,URINE CLEAR (CLEAR); BILIRUBIN,URINE 1+ (NEGATIVE); BLOOD, URINE 1+ (NEGATIVE); COLOR,URINE YELLOW (YELLOW); LEUKOCYTE ESTERASE ,URINE 1+ (NEGATIVE); NITRITE, URINE NEGATIVE (NEGATIVE); PROTEIN,URINE 2+ (NEGATIVE); UGLUCOSE 3+ (NEGATIVE); UROBILINOGEN,URINE 0.2 EU/dL (0.2 - 1)
[2024-02-16 22:34] LABS: ICTOTEST POSITIVE (NEGATIVE)
[2024-02-16 22:35] LABS: RBC,URINE 11-20 (MOD) /HPF (0-5); WBC,URINE 20-60 /HPF (0-5)
[2024-02-16 22:36] LABS: BACTERIA,URINE >30 (MANY) /HPF (None Seen); MUCUS,URINE 1+ /LPF (None Seen); SQUAMOUS EPITHELIAL CELL,UR 0-3 (FEW) /LPF (0-3 (FEW))
[2024-02-17] VITALS (7 sets, daily range): BP systolic 121–150; BP diastolic 54–85; PULSE 71–84; RESP 18; TEMP 97.8–98.9; O2SAT 97–100
[2024-02-17 06:27] LABS: BASOPHILS # (AUTO) 0.1 K/uL (0.00-0.22); EOSINOPHILS # (AUTO) 0.3 K/uL (0-0.4); EOSINOPHILS % (AUTO) 4.5 % (0.0-4.0); HEMATOCRIT 35.4 % (36-48); HEMOGLOBIN 12.1 g/dL (12.0-16.0); LYMPHOCYTES # (AUTO) 1.7 K/uL (2.5-16.5); LYMPHOCYTES % (AUTO) 24.9 % (20.5-51.1); MEAN CORPUSCULAR HEMOGLOBIN 30 pg (27-31); MEAN CORPUSCULAR HGB CONC 34 g/dL (33-37); MEAN CORPUSCULAR VOLUME 88.3 fL (80-94); MONOCYTES # (AUTO) 0.6 K/uL (0.8-1.0); MONOCYTES % (AUTO) 8.8 % (1.7-9.3); NEUTROPHILS # (AUTO) 4.3 K/uL (1.8-7.7); NEUTROPHILS % (AUTO) 60.8 % (42.2-75.2); PLATELET COUNT (AUTO) 258 K/uL (140-450); RED BLOOD CELL COUNT(AUTO) 4.01 MIL/uL (4.20-5.40); RED CELL DISTRIBUTION WIDTH 13.2 % (11.6-13.7)
[2024-02-17 06:55] LABS: ALBUMIN 3.4 g/dL (3.4-5.0); CARBON DIOXIDE 25.9 mmol/L (21-32); CREATININE 1.6 mg/dL (0.6-1.3); MAGNESIUM 1.7 mg/dL (1.8-2.4); POTASSIUM 3.9 mmol/L (3.5-5.1); TOTAL BILIRUBIN 0.8 mg/dL (0.0-1.0); TOTAL PROTEIN, SERUM 7.3 g/dL (6.4-8.2)
[2024-02-17] MEDS: BLOOD GLUCOSE MONITORING 1 DEV DEV FS SCH (07:46)
[2024-02-17] MEDS: FERROUS SULFATE 325 MG TABEC PO SCH (07:55)
[2024-02-17] MEDS: INSULIN LISPRO SLIDING SCALE 100 UNITS/ML VIAL SUBQ PRN (07:55)
[2024-02-17] MEDS: MEDS-TO-BEDS MC SCH (09:00)
[2024-02-17] MEDS: ENOXAPARIN 40 MG/0.4 ML SYR SUBQ SCH (10:05)
[2024-02-17] MEDS: ASPIRIN 81 MG TAB.CHEW PO SCH (10:06)
[2024-02-17] MEDS: ESCITALOPRAM 20 MG TAB PO SCH (10:06)
[2024-02-17] MEDS: GABAPENTIN 300 MG CAP PO SCH (10:07)
[2024-02-17] MEDS: ATORVASTATIN 20 MG TAB PO SCH (10:07)
[2024-02-17] MEDS: NIFEdipine 30 MG TABER PO SCH (10:08)
[2024-02-17] MEDS: MAG SULF 2000 MG/WATER PREMIX 50 ML IV SCH (10:08)
[2024-02-17] MEDS: ONDANSETRON 4 MG/2 ML VIAL IVP PRN (10:16)
[2024-02-17] MEDS: LORazepam 2 MG/ML VIAL IM/IVP PRN (13:24)
[2024-02-17] MEDS: INSULIN LANTUS 100 UNITS/ML 10 ML VIAL SUBQ SCH (22:19)
[2024-02-17] MEDS: QUEtiapine FUMARATE 25 MG TAB PO ONE (23:06)
[2024-02-18] VITALS (7 sets, daily range): BP systolic 103–133; BP diastolic 53–85; PULSE 68–84; RESP 18; TEMP 98–98.6; O2SAT 97–100
== END 2024-02-18 18:15 | disposition home or self-care (01) | DRG 198 ==
LOC: MED 17:48 → MTU 21:05
PROVIDERS: ADMIT Hospitalist; ATTEND Hospitalist
DX: I24.89 Other forms of acute ischemic heart disease (principal); E11.00 Type 2 diabetes mellitus with hyperosmolarity without nonketotic hyperglycemic-hyperosmolar coma (NKHHC); E11.22 Type 2 diabetes mellitus with diabetic chronic kidney disease; E87.1 Hypo-osmolality and hyponatremia; F15.10 Other stimulant abuse, uncomplicated; Z20.822 Contact with and (suspected) exposure to COVID-19; I12.9 Hypertensive chronic kidney disease with stage 1 through stage 4 chronic kidney disease, or unspecified chronic kidney disease; E44.1 Mild protein-calorie malnutrition; N18.9 Chronic kidney disease, unspecified; J45.909 Unspecified asthma, uncomplicated; Z86.73 Personal history of transient ischemic attack (TIA), and cerebral infarction without residual deficits; Z79.4 Long term (current) use of insulin; Z79.84 Long term (current) use of oral hypoglycemic drugs; Z79.82 Long term (current) use of aspirin; Z79.899 Other long term (current) drug therapy; Z88.2 Allergy status to sulfonamides; Z88.8 Allergy status to other drugs, medicaments and biological substances
CPT/HCPCS: 36415; 71045; 76705; 80048; 80053; 80076; 81001; 82948; 83690; 83735; 84484; 85025; 87081; 87086; 87186; 93005; 94640; 96361; 96374; 99285; J1650; J1815; J2060; J2405; J3475; J7613; Q0092